=== PATIENT | female | born 1940 | race African-American/Black ===

== ENCOUNTER 2017-10-05 10:27 | Outpatient (CLI) | payer MEDICARE, MEDICAID | END 2017-10-05 10:28 | disposition home or self-care (01) | LOC: BICMAMMO 10:27 | PROVIDERS: ATTEND Specialist | DX: Z08 Encounter for follow-up examination after completed treatment for malignant neoplasm (principal); Z85.3 Personal history of malignant neoplasm of breast; I48.91 Unspecified atrial fibrillation | CPT/HCPCS: G0206; G0279 ==

== ENCOUNTER 2018-06-02 16:34 | Emergency (ER) | payer MEDICARE ==
[~2018-06-02 16:34] MED LIST: ISOVUE-370 76%-LOCM 1 ML ONE
--- NOTE | 2018-06-02 17:37 | CT ---
CT ANGIOGRAM CHEST: 06/02/2018 HISTORY: One week history of shortness of breath. COMPARISON: 12/29/2017 TECHNIQUE: Serial axial CT imaging at 2.5 mm intervals, from the thoracic inlet through the upper abdomen, with IV contrast, using CT angiogram protocol. Coronal and sagittal 3D reformatted imaging obtained. FINDINGS: Limited assessment of the upper abdomen demonstrates contrast media refluxing into the IVC and hepati c veins, suggesting poor cardiac output. No significant pleural, pericardial, or mediastinal fluid is seen. There is a dual-lead transvenous pacing device, inserted via a left subclavian approach. Mastectomy changes are noted on the right wi th postoperative clips in the right axillary region. No axillary lymphadenopathy, hilar lymphadenopa thy, or mediastinal adenopathy is noted. There is no filling defect within the pulmonary arterial vasculature to suggest the presence of acute pulmonary embolism. There is no pneumothorax seen on either side. There is a pulmonary nodule within the medial left lower lobe, stable when compared to a CT chest janine ing back to 04/01/2016. This nodule measures 4-5 mm. The left lower lobe is otherwise unremarkable. The left upper lobe is unremarkable. There are increased linear interstitial densities in the right lung apex and at the anterior aspect o f the lower right upper lobe and at the superior aspect of the right middle lobe, stable, which may b e associated with treatment for breast cancer. No acute findings are noted within the right lung. No endobronchial lesion is identified. Review of the osseous structures demonstrates multilevel dege nerative change within the imaged spine. IMPRESSION: No evidence for acute pulmonary embolism. POS: [facility]
[2018-06-02 18:39] LABS: Troponin I Less than 0.010 ng/mL (< 0.028)
[2018-06-02 21:18] LABS: INR-International Normal Ratio 1.9; Prothrombin Time 22.2 SEC (12.0-14.7)
== END 2018-06-02 21:43 | disposition home or self-care (01) ==
LOC: ERS 16:34
DX: R06.02 Shortness of breath (principal); E78.5 Hyperlipidemia, unspecified; I10 Essential (primary) hypertension; M19.90 Unspecified osteoarthritis, unspecified site; F17.210 Nicotine dependence, cigarettes, uncomplicated; F41.9 Anxiety disorder, unspecified; F32.9 Major depressive disorder, single episode, unspecified; Z79.899 Other long term (current) drug therapy; Z79.01 Long term (current) use of anticoagulants
CPT/HCPCS: 36415; 71275; 85610; 93005; 96360; 96361

== ENCOUNTER 2018-10-16 14:00 | Outpatient (CLI) | payer MEDICARE | END 2018-10-16 14:01 | disposition home or self-care (01) | LOC: BICMAMMO 14:00 | PROVIDERS: ATTEND Specialist | DX: Z08 Encounter for follow-up examination after completed treatment for malignant neoplasm (principal); Z85.3 Personal history of malignant neoplasm of breast | CPT/HCPCS: 77065; G0279 ==

== ENCOUNTER 2018-10-23 19:40 | Observation (INO) | payer MEDICARE ==
[2018-10-23 19:58] VITALS: BMI 45.7
[2018-10-24] MEDS ORDERED: Ondansetron PF 4 MG/2 ML Vial IVP PRN (00:31)
[2018-10-24] MEDS ORDERED: Ondansetron ODT 4 MG TAB PO PRN (00:31)
[2018-10-24] MEDS ORDERED: Acetaminophen 325 MG TAB PO PRN (00:31)
[2018-10-24] MEDS ORDERED: PROVENTIL INHALER 6.7 G (200 INHALATIONS) INH PRN (00:33)
[2018-10-24] MEDS ORDERED: Acetaminophen/Codeine 30-300mg Tablet PO PRN (00:33)
[2018-10-24] MEDS ORDERED: Lorazepam 1 MG TAB PO PRN (00:33)
[2018-10-24 02:44] LABS: #Eosinphils 0.1 thou/uL (0.0-0.7); #Lymphocytes 1.4 thou/uL (1.20-3.40); #Monocytes 0.6 thou/uL (0.11-0.59); #Neutrophils 2.6 thou/uL (1.40-6.50); %Basophils 0.6 % (0.0-1.0); %Eosinophils 2.1 % (0.0-10.0); %Lymphocytes 29.7 % (21.0-51.0); %Monocytes 13.2 % (0.0-10.0); %Neutrophils 54.4 % (42.0-75.0); Hemoglobin 10.8 g/dL (12.0-16.0); Mean Corpuscular HGB CONC 31.5 g/dL (32.0-36.0); Mean Corpuscular Volume 88.7 fL (78.0-98.0); Mean Platelet Volume 8.4 fL (7.4-10.4); Platelet Count 211 thou/uL (130-400); RBC Distribution Width 14.4 % (11.5-14.5); Red Blood Cell (RBC) Count 3.85 mill/uL (4.20-5.40); White Blood Cell (WBC) Count 4.8 thou/uL (4.8-10.8)
[2018-10-24 02:51] LABS: Prothrombin Time 52.7 SEC (12.0-14.7)
[2018-10-24 03:09] LABS: Anion Gap 16 mmol/L (10-20); BUN (Urea Nitrogen) 33 mg/dL (9.8-20.1); Calc. Creatinine Clearance 57 mL/min (70-130); Calcium 9.1 mg/dL (7.8-10.44); Carbon Dioxide 23 mmol/L (23-31); Chloride 103 mmol/L (98-107); Estimated GFR-MDRD 37; Glucose 79 mg/dL (83-110); Potassium 4.6 mmol/L (3.5-5.1); Sodium 137 mmol/L (136-145)
[2018-10-24 03:11] LABS: INR-International Normal Ratio 5.9
--- NOTE | 2018-10-24 05:29 | HP ---
CODE STATUS: Full code. TIME OF EVALUATION: 9:15 p.m. CHIEF COMPLAINT: Shortness of breath. 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 The patient reported symptoms started about 2 to 3 months ago with no clear triggers , no alleviating factors, being gradually getting worse to the point that she cannot function and do her activities of daily living. Symptoms are severe, worsening with exertion, improving with rest. REVIEW OF SYSTEMS: CONSTITUTIONAL: No fever or chills. The patient did report generalized weakness. RESPIRATORY: The patient has had worsening shortness of breath as mentioned in the HPI. No cough or sputum production. CARDIOVASCULAR: No chest pain or palpitation. GASTROINTESTINAL: No nausea, vomiting, diarrhea, or abdominal pain. VIBRATION TECHNICIAN: No dizziness, headache, or feeling lightheaded. GENITOURINARY: No burning on urination. EXTREMITIES: No leg swelling. All other systems were reviewed and negative except for the findings mentioned above. PAST MEDICAL HISTORY: As mentioned in the HPI. PAST SURGICAL HISTORY: Cardiac cath, pacemaker placement, mastectomy, partial hysterectomy, total knee arthroplasty. FAMILY HISTORY: Mother has heart disease. ALLERGIES: TO HARJINDER INHIBITOR, ASPIRIN, CEPHALEXIN, PENICILLIN. SOCIAL HISTORY: Smoking status, former smoker. Alcohol use, rarely use. PHYSICAL EXAMINATION: VITAL SIGNS: On presentation, blood pressure 132/80 with heart rate 71, respiratory rate was 18, temperature 98.6. GENERAL APPEARANCE: The patient is alert, oriented, no acute distress. HEENT: Eyes; normal conjunctivae. Moist oral mucosa. Anicteric. No JVD. RESPIRATORY: Bilateral air entry. No rales. No wheezing. Symmetric expansion. CARDIOVASCULAR: Normal rate, regular rhythm. No murmurs, no gallops. No edema. ABDOMEN: Soft. Normal bowel sounds. MUSCULOSKELETAL: Baseline range of motion and strength. No tenderness. SKIN: Warm and intact. No pallor. No rash. No redness. Peripheral pulses are present. Capillary refill seems to be intact. NEUROLOGICAL: No evidence of any new focal weakness. Baseline speech. Cranial nerves seems to be intact. PSYCH: The patient is in good mood. No anxiety. Optimal judgment, DIAGNOSTIC DATA: EKG was reviewed. The patient has paced rhythm at the rate of 82, MT 188, QRS duration 240, QT corrected 614. LABORATORY DATA: Labs were reviewed. The patient has urine that was negative and troponin was negative. GFR 29, glucose 101, BUN 32, creatinine 1.91, sodium 139 , potassium 4.3, chloride 101, carbon dioxide was 27, total bilirubin 0.7, alkaline phosphatase 82. LFTs were normal. INR . CBC; white count 4.7, hemoglobin 11.1, hematocrit 35.1, MCV 84.4, platelet count 257. Chest x-ray, frontal view of the chest, stable left subclavian pacemaker. Heart size and pulmonary vasculature within normal limits. The lungs are clear. Calcified left hilar nodes. Surgical clips overlying the right axillary region. ASSESSMENT AND PLAN: The patient will be placed in the hospital with following medical problems: 1. Shortness of breath, unclear etiology. We will do echo. The patient does not have an echo in our records, the patient has a known history of ischemic cardiomyopathy. We will follow results and treat accordingly. 2. History of coronary artery disease: This is chronic, seems to be stable at this point. We will monitor. We will reconcile home medications. 3. Acute kidney injury: The patient has creatinine of 1.9, on previous admission was 1.5 as per record. We will monitor. If not improving, might need Nephro assistance with this patient. There is no significant evidence of fluid overload. We will do echo first before deciding between fluids and diuretics. The patient might be on the dry side since the patient was taking diuretics at home. 4. Chronic anticoagulation: The patient has supratherapeutic INR. No evidence of bleeding, we will monitor, pharmacy to dose warfarin. 5. History of hypertension: Reconcile home medications. We will adjust treatment as needed. It is a chronic problem. 6. History of gastroesophageal reflux disease: Continue Prilosec. 7. History of anxiety: Reconcile home medications. 8. Deep venous thrombosis prophylaxis. Job ID: [id number] [facility]
[2018-10-24] MEDS: Losartan 25 MG TAB PO SCH (08:24)
[2018-10-24] MEDS: Flecainide 50 MG TAB PO SCH ×2 (08:24→20:50)
[2018-10-24] MEDS: Anastrozole 1 MG TAB PO SCH (08:25)
[2018-10-24] MEDS: FLUoxetine HCl 20 MG CAP PO SCH (08:25)
[2018-10-24] MEDS ORDERED: Torsemide 20 MG TAB PO SCH (09:00)
[2018-10-24] MEDS ORDERED: Enoxaparin Sodium 40 MG/0.4 ML SYRINGE SC SCH (09:00)
--- NOTE | 2018-10-24 14:31 | CT ---
CT ABDOMEN AND PELVIS WITHOUT CONTRAST: Comparison: 04-19-18 History: Right sided abdominal pain and abdominal bloating. Technique: Multiple contiguous axial images were obtained in a CT of the abdomen and pelvis without c ontrast. Coronal reformats were performed. FINDINGS: The liver, gallbladder, kidneys, adrenal glands, spleen and pancreas are unremarkable although evalua tion is limited without IV contrast. No free air, free fluid or stranding changes are seen in the abd omen or pelvis. Evaluation of the pelvis is limited secondary to patient large body habitus touching the CT gantry producing streak artifact. The patient is status post hysterectomy. The large and small bowel are unremarkable. The appendix is unremarkable. No abdominal or pelvic lymphadenopathy are seen. Degenerative changes are seen in the spine. The visualized inferior thorax partially shows a pacemake r in the heart but is otherwise unremarkable. The abdominal wall soft tissues are unremarkable. IMPRESSION: No evidence of acute intraabdominal/pelvic abnormality. POS: C
[2018-10-24] MEDS ORDERED: Warfarin Sodium 5 MG TAB PO SCH ×2 (17:00→18:00)
--- NOTE | 2018-10-24 17:07 | PDOC.PN ---
- Subjective Encounter Start Date: 10/24/18 Encounter Start Time: 10:40 seen for followup re:shortness of breath. Denies chest pain, reports abdo discomfort. - Objective Resuscitation Status - Order Detail: 10/24/18 00:31 Resuscitation Status Routine Resuscitation Status: FULL: Full Resuscitation MAR Reviewed: Yes Vital Signs & Weight: Vital Signs (12 hours) Temp Pulse Resp BP Pulse Ox 10/24/18 15:57 97.7 F 65 16 120/55 L 96 10/24/18 11:06 97.8 F 66 16 142/63 H 94 L 10/24/18 07:35 98.1 F 65 20 136/60 95 Weight Admit Weight 274 lb 12.8 oz Weight 274 lb 12.8 oz I&O: 10/23/18 10/24/18 10/25/18 06:59 06:59 06:59 Intake Total 640 Balance 640 Result Diagrams: 10/24/18 02:21 10/24/18 02:21 EKG Reviewed by me: Yes (Tele: NSR) Phys Exam - Physical Examination Morbid obesity HEENT: moist MMs, sclera anicteric, oral pharynx no lesions, 2+ tonsils Neck: no nodes, no JVD, supple, full ROM Respiratory: clear to auscultation bilateral Cardiovascular: RRR, no rub S1, S2 Gastrointestinal: soft, non-tender, positive bowel sounds distended Neurological: moves all 4 limbs Psychiatric: normal affect, A&O x 3 Dx/Plan (1) Dyspnea Code(s): R06.00 - DYSPNEA, UNSPECIFIED Status: Acute Comment: workup in progress, 2D echo pending. (2) Abdominal discomfort Code(s): R10.9 - UNSPECIFIED ABDOMINAL PAIN Status: Acute Comment: check CT abdo/pelvis (3) Chronic kidney disease, stage 3 Code(s): N18.3 - CHRONIC KIDNEY DISEASE, STAGE 3 (MODERATE) Status: Chronic Comment: stable - Plan * . Review of Systems - Review of Systems Constitutional: weakness. negative: fever, chills, sweats, malaise Respiratory: SOB with Excertion. negative: Cough, Shortness of Breath, Pleuritic Pain, Wheezing Cardiovascular: negative: chest pain, palpitations, orthopnea, paroxysmal nocturnal dyspnea, edema, light headedness Gastrointestinal: Abdominal Pain. negative: Nausea, Vomiting, Diarrhea, Constipation, Melena, Hematochezia Genitourinary: negative: Dysuria, Frequency, Incontinence, Hematuria, Retention - Medications/Allergies Allergies/Adverse Reactions: Allergies Allergy/AdvReac Type Severity Reaction Status Date / Time HARJINDER Inhibitors Allergy swelling Verified 10/23/18 20:15 aspirin Allergy "messed Verified 10/23/18 20:15 with my acid reflux" ciprofloxacin Allergy "made me Verified 10/23/18 20:15 itch" metoprolol [From Lopressor] Allergy Verified 10/23/18 20:15 Penicillins Allergy "i break Verified 10/23/18 20:15 out" Medications: Current Medications Acetaminophen (Tylenol) 650 mg PO Q4H PRN PRN Reason: Headache/Fever/Mild Pain (1-3) Last Admin: 10/24/18 13:34 Dose: 650 mg Acetaminophen/Codeine Phosphate (Tylenol #3) 1 tab PO Q6H PRN PRN Reason: Pain Albuterol Sulfate (Proventil Hfa) 2 puff INH Q6H PRN PRN Reason: SOB &/or Wheezing Anastrozole (Arimidex) 1 mg PO DAILY [facility] Last Admin: 10/24/18 08:25 Dose: 1 mg Flecainide Acetate (Tambocor) 200 mg PO BID [facility] Last Admin: 10/24/18 08:24 Dose: 200 mg Fluoxetine HCl (Prozac) 20 mg PO QAM [facility] Last Admin: 10/24/18 08:25 Dose: 20 mg Lorazepam (Ativan) 1 mg PO DAILY PRN PRN Reason: Anxiety Losartan Potassium (Cozaar) 25 mg PO DAILY [facility] Last Admin: 10/24/18 08:24 Dose: 25 mg Miscellaneous Medication (Pharmacy To Dose) 1 each PO PRN PRN PRN Reason: Pharmacy to dose Mometasone Furoate (Asmanex Twisthaler) 1 puff INH 1830 [facility] Ondansetron HCl (Zofran Odt) 4 mg PO Q6H PRN PRN Reason: Nausea/Vomiting Last Admin: 10/24/18 13:33 Dose: 4 mg Ondansetron HCl (Zofran) 4 mg IVP Q6H PRN PRN Reason: Nausea/Vomiting Pantoprazole Sodium (Protonix) 40 mg PO DAILY [facility] Last Admin: 10/24/18 08:25 Dose: 40 mg Pravastatin Sodium (Pravachol) 40 mg PO HS [facility] Torsemide (Demadex) 20 mg PO DAILY [facility] Last Admin: 10/24/18 08:25 Dose: 20 mg Warfarin Sodium (Coumadin) 5 mg PO 1700 [facility]
[2018-10-24] MEDS ORDERED: Furosemide 40 MG/4 ML VIAL SLOW IVP SCH (17:30)
[2018-10-24] MEDS ORDERED: Mometasone Furoate 120 PUFF 220 MCG INH SCH (18:30)
[2018-10-24] MEDS ORDERED: Pravastatin Sodium 40 MG TAB PO SCH (21:00)
[2018-10-25 05:33] LABS: Prothrombin Time 42.6 SEC (12.0-14.7)
[2018-10-25 05:38] LABS: INR-International Normal Ratio 4.5
[2018-10-25 05:56] LABS: Anion Gap 15 mmol/L (10-20); BUN (Urea Nitrogen) 40 mg/dL (9.8-20.1); Calc. Creatinine Clearance 52 mL/min (70-130); Calcium 8.8 mg/dL (7.8-10.44); Carbon Dioxide 24 mmol/L (23-31); Chloride 101 mmol/L (98-107); Estimated GFR-MDRD 32; Glucose 82 mg/dL (83-110); Potassium 4.8 mmol/L (3.5-5.1); Sodium 135 mmol/L (136-145)
[2018-10-25 06:12] LABS: Eosinophils 2 % (0-10); Hemoglobin 10.5 g/dL (12.0-16.0); Lymphocytes 24 % (21-51); MDiff Complete? YES; Mean Corpuscular HGB CONC 31.2 g/dL (32.0-36.0); Mean Corpuscular Hemoglobin 27.7 pg (27.0-31.0); Mean Corpuscular Volume 88.8 fL (78.0-98.0); Mean Platelet Volume 8.2 fL (7.4-10.4); Monocytes 19 % (0-10); Neutrophil 55 % (42-75); Platelet Count 205 thou/uL (130-400); RBC Distribution Width 14.3 % (11.5-14.5); Red Blood Cell (RBC) Count 3.77 mill/uL (4.20-5.40); White Blood Cell (WBC) Count 5.2 thou/uL (4.8-10.8)
[2018-10-25] MEDS: Flecainide 50 MG TAB PO SCH (09:26)
[2018-10-25] MEDS: Anastrozole 1 MG TAB PO SCH (09:26)
[2018-10-25] MEDS: Losartan 25 MG TAB PO SCH (09:27)
[2018-10-25] MEDS: FLUoxetine HCl 20 MG CAP PO SCH (09:27)
--- NOTE | 2018-10-25 15:38 | RAD ---
CHEST TWO VIEWS: HISTORY: Shortness of breath. CORRELATION: Nuclear medicine VQ scan. FINDINGS: Heart size is mildly prominent but stable from prior exam of 06/02/2018. Lungs appears clear with no infiltrate or vascular congestion apparent. A dual-lead pacemaker was again noted. IMPRESSION: No acute lung process. POS: [facility]OR[facility]
--- NOTE | 2018-10-25 16:04 | NM ---
VQ SCAN: INDICATION: Shortness of breath. Assess for pulmonary embolism. FINDINGS: Ventilation scan performed administering 15 mCi of inhaled Xenon gas. Anterior and posterior images obtained. No evidence of ventilation defect. Mild symmetric air trapping. Perfusion scan performed with administration of 5 mCi of Technetium labelled MAA. Lungs were imaged in 8 projections. FINDINGS: There is a perfusion defect involving the right lung apex. No other perfusion defect identified. Th is would represent a single mismatched segmental defect. IMPRESSION: A single segmental perfusion defect which is mismatched in the right apex. Indeterminate probability for pulmonary embolus. POS: [facility]
[2018-10-25 16:17] VITALS: BP 101/59; TEMP 97.9
--- NOTE | 2018-10-26 02:30 | DIS ---
DATE OF ADMISSION: 10/23/2018 DATE OF DISCHARGE: 10/25/2018 PRIMARY CARE PROVIDER: Bong Timmons MD DISCHARGE DIAGNOSES: 1. Shortness of breath. 2. Shortness of breath, most likely secondary to chronic diastolic congestive heart failure, [place] Heart Association class II and ACC/AHA class II. 3. Acute kidney injury. 4. Abdominal discomfort, NYD. CONDITION OF PATIENT ON THE DAY OF DISCHARGE: Stable. I assessed Ms. Vigil on the day of discharge. She reports mild pain over the right lower chest wall. She denies any cough, fevers or chills. Abdominal discomfort is better. S1 and S2 are heard, regular. Lungs are clear to auscultation bilaterally. DISCHARGE MEDICATIONS: 1. Tylenol No. 3 p.r.n. 2. ProAir HFA p.r.n. 3. Anastrozole 1 mg daily. 4. Flecainide 200 mg 2 times a day. 5. Fluoxetine 20 mg daily. 6. Fluticasone one inhalation daily. 7. Ativan 1 mg daily. 8. Losartan 25 mg daily. 9. Omeprazole 40 mg daily. 10. Pravachol 40 mg at bedtime. 11. Torsemide 20 mg daily. HOSPITAL COURSE: Ms. Vigil is a pleasant 78-year-old lady, who was admitted to [facility] on October 23, 2018, for shortness of breath and abdominal discomfort. CT scan of the abdomen and pelvis done without IV contrast did not show any acute intraabdominal or intrapelvic abnormality. She also had 2D echocardiogram, which showed left ventricular ejection fraction of 55% to 60%, restrictive filling pattern, normal right ventricular size and function, moderately dilated left atrium, moderately enlarged right atrium, [id number] mitral regurgitation, and [id number] aortic regurgitation. She had severe tricuspid regurgitation and mild pulmonic regurgitation. She had a V/Q scan, which showed a segmental perfusion defect in the right apex. At the time of the test, she had supratherapeutic INR. Also, the location of the defect was not consistent with the location of her pain. No change was made to her anticoagulation. Her INR was 5.9 on October 24 and 4.5 on October 25. She was advised to hold warfarin and see her primary care provider in 3 days time and have her INR rechecked and decision to be made regarding further anticoagulation at that time. She was also advised to follow up with her jewel sawyer as an outpatient. Please note that she also had her pacemaker interrogated during this hospitalization. There were no device terminated issues. There were no issues with device performance. On the day of discharge, she has INR 4.5, white count 5200, hemoglobin 10.5, platelet count 205,000. Sodium 135, blood urea nitrogen 40, and creatinine 1.83. Many thanks for allowing me to participate in your patient's care. Please feel free to contact me with any questions or concerns. Please note that I have advised her to have her creatinine checked as well when she sees her primary care provider in 3 days time. DISCHARGE DESTINATION: Home. Job ID: [id number]
== END 2018-10-25 18:32 | disposition home or self-care (01) ==
LOC: 2SW 19:40
PROVIDERS: ADMIT Internal Medicine; ATTEND Internal Medicine
DX: R06.02 Shortness of breath (principal); I11.0 Hypertensive heart disease with heart failure; I50.32 Chronic diastolic (congestive) heart failure; N17.9 Acute kidney failure, unspecified; R10.9 Unspecified abdominal pain; D64.9 Anemia, unspecified; F41.9 Anxiety disorder, unspecified; M19.90 Unspecified osteoarthritis, unspecified site; I48.91 Unspecified atrial fibrillation; I42.9 Cardiomyopathy, unspecified; G47.00 Insomnia, unspecified; E78.5 Hyperlipidemia, unspecified; K21.9 Gastro-esophageal reflux disease without esophagitis; Z79.51 Long term (current) use of inhaled steroids; Z79.811 Long term (current) use of aromatase inhibitors; Z79.899 Other long term (current) drug therapy; Z87.891 Personal history of nicotine dependence; Z88.0 Allergy status to penicillin; Z88.1 Allergy status to other antibiotic agents; Z88.8 Allergy status to other drugs, medicaments and biological substances; Z95.0 Presence of cardiac pacemaker
CPT/HCPCS: 71046; 74176; 78582; 80048 ×2; 83880; 85025 ×2; 85610 ×2; 93306; 96374; A9540; A9558; G0378; G0379; 36415; J1940; Q0162

== ENCOUNTER 2018-11-13 22:14 | Inpatient (IN) | payer MEDICARE ==
--- NOTE | 2018-11-13 22:47 | RAD ---
CHEST ONE VIEW 11/13/18 HISTORY: Dyspnea. COMPARISON: Radiograph 11/01/18. FINDINGS: Heart size is mildly enlarged. Mild pulmonary venous congestion. Mild tortuosity of the aorta. No acute osseous abnormality. IMPRESSION: Cardiomegaly and mild pulmonary venous congestion, not progressed from the 11/01/18 study. POS: [facility]ORGE [facility]
[2018-11-13 22:51] LABS: #Eosinphils 0.1 thou/uL (0.0-0.7); #Lymphocytes 0.6 thou/uL (1.20-3.40); #Monocytes 0.6 thou/uL (0.11-0.59); #Neutrophils 3.6 thou/uL (1.40-6.50); %Basophils 0.8 % (0.0-1.0); %Eosinophils 1.7 % (0.0-10.0); %Lymphocytes 12.3 % (21.0-51.0); %Monocytes 11.7 % (0.0-10.0); %Neutrophils 73.5 % (42.0-75.0); Hemoglobin 10.4 g/dL (12.0-16.0); Mean Corpuscular HGB CONC 30.6 g/dL (32.0-36.0); Mean Corpuscular Volume 85.1 fL (78.0-98.0); Mean Platelet Volume 8.5 fL (7.4-10.4); Platelet Count 223 thou/uL (130-400); RBC Distribution Width 15.1 % (11.5-14.5); Red Blood Cell (RBC) Count 3.98 mill/uL (4.20-5.40); White Blood Cell (WBC) Count 4.9 thou/uL (4.8-10.8)
[2018-11-13 22:56] LABS: ALT (SGPT) 38 U/L (8-55); AST (SGOT) 52 U/L (5-34); Albumin 3.3 g/dL (3.4-4.8); Alkaline Phosphatase 103 U/L (40-150); Anion Gap 13 mmol/L (10-20); BUN (Urea Nitrogen) 48 mg/dL (9.8-20.1); Bilirubin, Total 0.8 mg/dL (0.2-1.2); Calc. Creatinine Clearance 0 mL/min (70-130); Calcium 8.9 mg/dL (7.8-10.44); Carbon Dioxide 30 mmol/L (23-31); Chloride 96 mmol/L (98-107); Estimated GFR-MDRD 26; Glucose 121 mg/dL (83-110); Potassium 4.1 mmol/L (3.5-5.1); Protein, Total 6.3 g/dL (6.0-8.3); Sodium 135 mmol/L (136-145)
[2018-11-14 00:47] LABS: Bilirubin Negative (Negative); Blood, Urine Negative (Negative); Clarity CLOUDY (Clear); Glucose, Urine (Dipstick) Negative (Negative); Leukocyte Small (Negative); Nitrite Negative (Negative); Protein, Urine (Dipstick) 100 mg/dL (Neg-Trace); Specific Gravity, Urine 1.012 (1.002-1.036); Urobilinogen 0.2 mg/dL (0.2-1.0); pH, Urine 5.5 (5.0-9.0)
[2018-11-14 00:50] LABS: Bacteria/HPF None Seen HPF (None Seen)
[2018-11-14 00:56] LABS: Pathc Cast-AUWi Flag 2.72 (0-2.49)
[2018-11-14 01:17] LABS: Hyaline Casts/LPF NONE SEEN LPF (0-3 Hyaline); Other Casts/LPF None Seen LPF (0-3 Hyaline)
[2018-11-14 01:18] LABS: Crystals/HPF None Seen HPF (Negative)
[2018-11-14 02:10] LABS: Troponin I 0.013 ng/mL (< 0.028)
[2018-11-14 05:21] LABS: Troponin I 0.014 ng/mL (< 0.028)
[2018-11-14] MEDS ORDERED: Lisinopril 10 MG TAB ONE (08:17)
[2018-11-14] MEDS ORDERED: Famotidine/PF 20 mg/2ml Vial ONE (09:43)
[2018-11-14] MEDS: Sodium Chloride 0.9% 1,000 ML IV SCH (09:47)
[2018-11-14] MEDS: Famotidine/PF 20 mg/2ml Vial SLOW IVP SCH (09:47)
[2018-11-14] MEDS ORDERED: Warfarin Sodium 5 MG TAB PO SCH (10:00)
[2018-11-14 10:15] LABS: Prothrombin Time 39.8 SEC (12.0-14.7)
[2018-11-14 10:24] LABS: INR-International Normal Ratio 4.1
--- NOTE | 2018-11-14 10:45 | ULT ---
BILATERAL LOWER EXTREMITY VENOUS DOPPLER ULTRASOUND: Date: 11/14/18 HISTORY: Bilateral lower extremity edema. TECHNIQUE: Kowalski scale ultrasound with color flow and spectral Doppler imaging of the deep venous systems of the lower extremities was performed bilaterally. FINDINGS: There is good flow, compression, and augmentation noted in the common femoral, femoral, deep femoral, popliteal, posterior tibial, and greater saphenous veins on either side. IMPRESSION: No evidence of deep venous thrombosis in either lower extremity. POS: [facility]
--- NOTE | 2018-11-14 11:19 | PDOC.EVN ---
Event Note - Event Note Event Note: I have interviewed, examined and discussed pt with Bhakti Hunter regarding gen weakness, dyspnea in context of valvular heart disease and KALI. Consult Cardiology service to establish care and plan for outpt follow up. Gentle hydration and avoidance of nephrotoxic meds. PT/OT evaluation and consideration for SNF/cardiac rehab. Please see dictated H&P for full details.
--- NOTE | 2018-11-14 12:18 | HP ---
CHIEF COMPLAINT: Weakness and shortness of breath. HISTORY OF PRESENT ILLNESS: Ms. Vigil is a very pleasant 78-year-old woman with a background history of atrial fibrillation, hypertension, permanent pacemaker, and valvular disease, as well as chronic kidney disease, who presents after experiencing an episode of weakness, lightheadedness and shortness of breath yesterday evening. The patient was recently discharged on November 04, 2018, after being treated for exacerbation of her CHF. She had an echo done that showed an EF of 55% to 60%. Also noted was significant valvular disease including moderate to severe mitral regurgitation and severe tricuspid regurgitation. The patient states since being discharged, she has been home and sedentary on the couch, only getting up to go to the bathroom. Yesterday evening, her grandson, who she lives with, had started laundry and left. She got up to put the clothes in the dryer and on her way back to the couch, felt weak in the legs with lightheadedness and began to experience shortness of breath. She denies any syncope and denies any associated chest pain. She was able to make it back to the couch and sought medical attention. She has had no further episodes of lightheadedness or shortness of breath since arriving to the ER. And again denies having any episode of chest pain, however, now describes a sharp, stabbing pain in the right lateral chest with deep inspiration. She denies having any cough or hemoptysis. Has not had any fevers, chills, or sweats. She has been tolerating oral intake at home, but has been limiting her fluid intake to 1500 mL a day due to her heart failure. The patient is on warfarin for atrial fibrillation and states that she continues to take 7.5 mg every day except Tuesdays and when she takes 5 mg. She denies being under the care of any loading machine tool setter, since her heart failure is being managed by Dr. Timmons. She also reports being told she should follow with a cement mason, but has not established care with one yet. PAST MEDICAL HISTORY: 1. CHF. 2. Atrial fibrillation, on warfarin. 3. Cardiomyopathy. 4. Coronary artery disease. 5. Percutaneous transluminal angioplasty with pacemaker placement in the past. 6. Hyperlipidemia. 7. Hypertension. 8. Chronic kidney disease, stage III. 9. Osteoarthritis. 10. GERD. 11. Chronic anemia. 12. Mild intermittent asthma. 13. Depression. 14. History of breast cancer. PAST SURGICAL HISTORY: 1. Status post right mastectomy. 2. Left and right knee replacement. 3. Partial hysterectomy. SOCIAL HISTORY: The patient denies any tobacco use, alcohol use or illicit drug use. She lives at home with her grandson. She has no car or any way to get around. ALLERGIES: 1. HARJINDER INHIBITORS. 2. ASPIRIN CAUSES UPSET STOMACH. 3. CIPRO. 4. METOPROLOL. 5. PENICILLIN. CURRENT MEDICATIONS: 1. Losartan 25 mg p.o. daily. 2. Omeprazole 40 mg p.o. daily. 3. Caltrate 600 plus vitamin D 1 tablet daily. 4. Fluoxetine 20 mg p.o. daily. 5. Pravastatin 40 mg p.o. daily at bedtime. 6. Arnuity Ellipta inhaled p.r.n. 7. Anastrozole 1 mg p.o. daily. 8. Torsemide 40 mg p.o. daily. 9. Flecainide 100 mg p.o. b.i.d. 10. Warfarin 7.5 mg daily except for Tuesdays and when she takes only 5 mg daily. PHYSICAL EXAMINATION: GENERAL: The patient appears well-developed and obese, in no acute distress. Sat upright on stretcher. VITAL SIGNS: Temperature 98.7, blood pressure 101/52, pulse 80, respirations 18 , O2 saturation 98% on room air. HEENT: Normocephalic and atraumatic. Pupils are equal, round, and reactive to light. Sclerae are without icterus. Oropharynx is clear. NECK: Supple without lymphadenopathy. Full range of motion. CARDIAC: Regular rate and rhythm. LUNGS: Clear to auscultation bilaterally without any wheezes, rales, or rhonchi. ABDOMEN: Soft, obese, nontender, nondistended. No renal angle tenderness. No guarding or rigidity. EXTREMITIES: Notable for +1 pitting edema bilaterally. Mild calf tenderness with palpation. No anasarca. NEUROLOGIC: Alert and oriented x3. SKIN: Without rash or jaundice. LABORATORY DATA: White blood count 4.9, hemoglobin 10.4, hematocrit 33.9, platelets 223. Sodium 135, potassium 4.1, BUN 48, creatinine 2.23, GFR 26. Total bilirubin 0.8, AST 52, alkaline phosphatase 103. Troponin 1 negative x3. BNP 644.4. Urinalysis notable for small leukocyte esterase, red blood cells 11-20, white blood cells 7 to 10, 100 protein, no bacteria, nitrites negative. IMAGING DATA: Chest x-ray, 11/13/2018, cardiomegaly and mild pulmonary venous congestion, not progressed from previous study done November 01, 2018. IMPRESSION AND PLAN: Ms. Vigil is a very pleasant 78-year-old woman, who is being admitted for management of the following. 1. Weakness/lightheadedness. Given recent sedentary status, may have been due to a combination of dehydration and "over-exertion" vs. due to underlying severe valvular heart disease. She does not seem to be fluid overloaded at this time. Her renal function has deteriorated from baseline and her blood pressure is on the lower side. We will give very gentle hydration and have placed a consultation with Cardiology. 2. Acute on chronic renal failure. As stated above, we will provide gentle hydration. The patient has been discussed with Dr. Mcdonough, nephrology, who is happy to accept the consultation. We will continue to monitor her kidney function. 3. Shortness of breath. As mentioned above, possibly associated with underlying valvular disease or general deconditioning. The patient did mention right lateral pleuritic type chest pain. Though she is on anticoagulation, she has been quite sedentary. We are awaiting coags to ensure she is within therapeutic range. Given slight lower leg swelling with mild calf tenderness, we will obtain bilateral venous Doppler. 4. Hypertension. We will hold medications at this time given her low blood pressure. Continue to monitor blood pressure. 5. Atrial fibrillation. We will resume flecainide. Coags requested. We will resume warfarin unless super therapeutic. 6. Gastrointestinal prophylaxis. 7. Venous thromboembolism prophylaxis. The patient already on anticoagulation. 8. Disposition: The patient will be admitted to observation for potential discharge to [facility] facility for heart failure program, given degree of deconditioning since discharge from home and inability to make it to outpatient heart failure rehab. 9. Code status full as per patient's request. The patient's case was discussed with Dr. Kirkland, who agrees upon the care as described above. He will see the patient and make further recommendations. Job ID: [id number] [facility]
--- NOTE | 2018-11-14 15:42 | CON ---
DATE OF CONSULTATION: 11/14/2018 CONSULTING PHYSICIAN: Elsa Miller PA-C REASON FOR CONSULT: Acute kidney injury. REASON FOR ADMISSION: Weakness. HISTORY OF PRESENT ILLNESS: A 78-year-old female with CHF, atrial fibrillation, cardiomyopathy, coronary artery disease came to the hospital with weakness and leg swelling and Nephrology was consulted for acute kidney injury. The patient's creatinine was found to be 2.2, baseline runs around 1.6 to 1.8. The patient denies any nausea, vomiting. No chest pain or palpitation. PAST MEDICAL HISTORY: Positive for CHF, cardiomyopathy, coronary artery disease, hyperlipidemia, hypertension, CKD. PAST MEDICAL HISTORY: Mastectomy, knee replacement, hysterectomy. HOME MEDICATIONS: Include: 1. Losartan. 2. Omeprazole. 3. . 4. Fluoxetine. 5. Pravastatin. 6. Anastrozole. 7. Torsemide. 8. Flecainide. 9. Warfarin. ALLERGIES: 1. HARJINDER INHIBITORS. 2. ASPIRIN. 3. CIPRO. 4. METOPROLOL. 5. PENICILLIN. SOCIAL HISTORY: No smoking, alcohol, or drug abuse. FAMILY HISTORY: No history of any kidney disease. REVIEW OF SYSTEMS: CONSTITUTIONAL: Negative for weight loss or gain, ability to conduct usual activities. SKIN: Negative for rash, itching. EYES: Negative for double vision, pain. ENT/MOUTH: Negative for nose bleeding, neck stiffness, pain, tenderness. CARDIOVASCULAR: Negative for palpitations, dyspnea on exertion, orthopnea. RESPIRATORY: Negative for shortness of breath, wheezing, cough, hemoptysis, fever or night sweats. GASTROINTESTINAL: Negative for poor appetite, abdominal pain, heartburn, nausea, vomiting, constipation, or diarrhea. GENITOURINARY: Negative for urgency, frequency, dysuria, nocturia. MUSCULOSKELETAL: Negative for pain, swelling. NEUROLOGIC/PSYCHIATRIC: Negative for anxiety, depression. ALLERGY/IMMUNOLOGIC: Negative for skin rash, bleeding tendency. PHYSICAL EXAMINATION: GENERAL: Well-built female, in apparent distress. VITAL SIGNS: Temperature 98.7, pulse 68, respiratory rate 20, blood pressure 99/47. HEENT: Atraumatic and normocephalic. Oral mucosa is moist. NECK: Supple. CVS: S1 and S2 heard. Regular rate and rhythm. RESPIRATORY: Clear. GASTROINTESTINAL: Abdomen is soft. MUSCULOSKELETAL: 1+ edema. DERMATOLOGIC: No skin rash. NEUROLOGIC: Alert and awake. PSYCHIATRIC: Mood and affect normal. LABORATORY DATA: Hemoglobin is 10.4, potassium is 4.1, BUN is 48, creatinine is 2.2. ASSESSMENT AND PLAN: 1. Acute kidney injury. Agree with gentle hydration. Be cautious with cardiorenal syndrome. 2. Edema. We will monitor. 3. Hypertension. 4. Avoid nephrotoxins. Renally dose all the medications. 5. Gentle hydration, if tolerated. We will follow. Job ID: [id number]
--- NOTE | 2018-11-14 15:53 | CON ---
DATE OF CONSULTATION: 11/14/2018 REASON FOR CONSULTATION: Heart failure. HISTORY OF PRESENT ILLNESS: Ms. Vigil is a pleasant 78-year-old female, who comes to the hospital for increased shortness of breath. She was recently admitted for the same reason. She was diuresed and discharged home. She follows up with Dr. Martinez at [facility], but this is mostly for her atrial fibrillation. She is on Coumadin for chronic atrial fibrillation. She was discharged home and had to come right back secondary to shortness of breath. She was diuresed and eventually was a little bit too dry and is currently being given some fluids back. Her breathing is much better now and she is on room air. She denies any chest pain, tightness, pressure, or shortness of breath. PAST MEDICAL HISTORY: 1. History of diastolic heart failure. 2. Chronic atrial fibrillation, on chronic anticoagulation with Coumadin. 3. Coronary artery disease. 4. Pacemaker placement in the past. 5. Hyperlipidemia. 6. Hypertension. 7. Chronic kidney disease, stage 3. 8. Osteoarthritis. 9. GERD. 10. Chronic anemia. 11. Mild intermittent asthma. 12. Depression. 13. History of breast cancer. SURGICAL HISTORY: 1. Status post right mastectomy. 2. Left and right knee replacements. 3. Partial hysterectomy. SOCIAL HISTORY: No alcohol, tobacco, or drugs. ALLERGIES: 1. HARJINDER INHIBITORS. 2. ASPIRIN CAUSES UPSET STOMACH. 3. CIPRO. 4. METOPROLOL. 5. PENICILLIN. OUTPATIENT MEDICATIONS: Include, 1. Losartan 25 mg a day. 2. Omeprazole 40 mg a day. 3. Caltrate. 4. Fluoxetine. 5. Pravastatin 40 mg at bedtime. 6. Anoro Ellipta. 7. Anastrozole. 8. Torsemide 40 mg a day. 9. Flecainide 100 mg b.i.d. 10. Warfarin. REVIEW OF SYSTEMS: A 12-point review of systems was done and was all negative unless stated in the history of present illness. PHYSICAL EXAMINATION: VITAL SIGNS: Temperature 97.6, pulse 68, respiratory rate 18, saturating 97% on room air, and blood pressure GENERAL: Awake, alert, and oriented x3. No distress. HEENT: Normocephalic and atraumatic. NECK: Supple. LUNGS: Clear. CARDIOVASCULAR: S1 and S2. No S3 or S4. There is a grade 3/6 systolic murmur at the right upper sternal border. There is a second holosystolic 3/6 murmur at the apex. ABDOMEN: Soft. Positive bowel sounds. EXTREMITIES: A 1+ edema. SKIN: Warm and dry. LABORATORY DATA: Laboratory work was reviewed. CBC was reviewed. She is anemic at 10.4. Coags, INR was 4.1. Chemistries were reviewed. Creatinine at 2.23 with what appears to be a baseline of about 1.6. Troponin is negative x3. BNP is 644. Echocardiogram was reviewed, done on last visit, on the 16 of October. EF was 55% to 60%. There is a restrictive filling pattern. There is a grade 3/3 diastolic heart failure. Pacemaker leads seen. There is a [id number] AI, and there is severe TR and a severely enlarged right atrium. CT angiogram of the chest done back in May of last year showed no evidence of pulmonary embolisms. ASSESSMENT: 1. Acute on chronic diastolic heart failure. 2. Grade 3/3 diastolic heart failure, which is a restrictive physiology. 3. Severe tricuspid regurgitation. 4. Acute kidney injury on chronic kidney disease. 5. Atrial fibrillation. 6. Presence of a pacemaker. 7. Chronic anticoagulation with Coumadin. 8. Supratherapeutic INR. PLAN: 1. Agree with gentle hydration and this may be a cause of her acute kidney injury. If she starts to become more fluid overloaded, she may need a little more diuresis, so do this judiciously. 2. Warfarin adjustments per pharmacy for a therapeutic INR. 3. She follows up with Dr. Martinez mostly for her atrial fibrillation and her pacemaker. 4. We will follow. Job ID: [id number]
[2018-11-14] MEDS: Flecainide 50 MG TAB PO SCH (20:49)
[2018-11-14] MEDS: Ondansetron PF 4 MG/2 ML Vial SLOW IVP PRN (20:49)
[2018-11-15] MEDS: Sodium Chloride 0.9% 1,000 ML IV SCH (04:05)
[2018-11-15 07:07] LABS: Anion Gap 18 mmol/L (10-20); BUN (Urea Nitrogen) 52 mg/dL (9.8-20.1); Calc. Creatinine Clearance 43 mL/min (70-130); Calcium 8.7 mg/dL (7.8-10.44); Carbon Dioxide 21 mmol/L (23-31); Chloride 99 mmol/L (98-107); Estimated GFR-MDRD 25; Glucose 79 mg/dL (83-110); Potassium 4.7 mmol/L (3.5-5.1); Sodium 133 mmol/L (136-145)
[2018-11-15] MEDS: Flecainide 50 MG TAB PO SCH ×2 (07:48→19:59)
[2018-11-15] MEDS: Famotidine/PF 20 mg/2ml Vial SLOW IVP SCH (07:49)
[2018-11-15] MEDS ORDERED: Torsemide 20 MG TAB PO SCH (09:00)
[2018-11-15 09:19] LABS: Hemoglobin 11.4 g/dL (12.0-16.0); Mean Corpuscular Hemoglobin 26.4 pg (27.0-31.0); Mean Corpuscular Volume 82.4 fL (78.0-98.0); Platelet Count 203 thou/uL (130-400); RBC Distribution Width 15.1 % (11.5-14.5); Red Blood Cell (RBC) Count 4.31 mill/uL (4.20-5.40)
[2018-11-15 09:20] LABS: Eosinophils 1 % (0-10); Hypochromia SLIGHT = 6-15 cells (100X) (0-5/hpf); Lymphocytes 32 % (21-51); MDiff Complete? YES; Monocytes 11 % (0-10); Neutrophil 56 % (42-75); Ovalocytes SLIGHT = 2-5 cells (100X) (0-1/hpf); Platelet Morphology Comment Appears Adequate; Polychromasia SLIGHT = 2-3 cells (100X) (0-2/hpf)
[2018-11-15] MEDS ORDERED: Polyethylene Glycol 3350 17 GM Packet PO SCH (11:30)
[2018-11-15 12:04] LABS: INR-International Normal Ratio 3.5; Prothrombin Time 35.2 SEC (12.0-14.7)
[2018-11-15] MEDS: Promethazine HCl 6.25 MG/5 ML Syrup PO PRN (14:41)
--- NOTE | 2018-11-15 16:27 | PDOC.CTH ---
Cardiology Progress Note - Subjective Breathing is fine, her issue today is nausea and vomiting. - Objective Vital Signs Temp Pulse Resp BP Pulse Ox 11/15/18 16:21 97.5 F L 63 16 106/70 97 11/15/18 11:31 97.4 F L 64 18 87/53 L 97 11/15/18 07:18 97.6 F 64 16 123/74 96 Weight 290 lb 9 oz 11/14/18 11/15/18 11/16/18 06:59 06:59 06:59 Intake Total 960 Balance 960 - Physical Examination General/Neuro: alert & oriented x3, NAD Neck: no JVD present Lungs: CTA, unlabored respirations Heart: RRR Abdomen: NT/ND Extremities: other: (2+ edema.) - Labs Result Diagrams: 11/15/18 06:20 11/15/18 06:20 Troponin/CKMB Troponin I 0.014 ng/mL (< 0.028) 11/14/18 04:46 - Assessment/Plan 1. Acute on chronic diastolic heart failure. 2. Restrictive pattern 3. Severe TR, Mod to severe MR 4. KALI on CKD PLAN: - Will give on dose IV lasix. - Continue to monitor renal function. - Significant edema still.
[2018-11-15] MEDS ORDERED: Furosemide 40 MG/4 ML VIAL SLOW IVP SCH (16:30)
--- NOTE | 2018-11-15 17:54 | PDOC.PN ---
- Subjective Encounter Start Date: 11/15/18 Encounter Start Time: 10:53 -: non-verbal Subjective: Patient states she has been dry heaving this morning since eating. -: States this happens on occasion after meals. No abdominal pain. -: Has not moved her bowels but reports flatus. No fever, chills or sweats. Denies any vomiting or actual regurgitation of food. No chest pain. Continues with lower leg edema. - Objective Vital Signs & Weight: Vital Signs (12 hours) Temp Pulse Resp BP Pulse Ox 11/15/18 16:21 97.5 F L 63 16 106/70 97 11/15/18 11:31 97.4 F L 64 18 87/53 L 97 11/15/18 07:18 97.6 F 64 16 123/74 96 Weight Weight 290 lb 9 oz I&O: 11/14/18 11/15/18 11/16/18 06:59 06:59 06:59 Intake Total 960 Balance 960 Result Diagrams: 11/15/18 06:20 11/15/18 06:20 Phys Exam - Physical Examination Appears generally unwell due to nausea HEENT: PERRLA, moist MMs, oral pharynx no lesions Neck: supple, full ROM Respiratory: clear to auscultation bilateral Cardiovascular: RRR Gastrointestinal: soft, non-tender, no distention, positive bowel sounds no guarding or rigidity, morbidly obese Musculoskeletal: edema present Neurological: normal sensation, moves all 4 limbs Psychiatric: normal affect, A&O x 3 Skin: no rash Dx/Plan (1) Nausea Code(s): R11.0 - NAUSEA Status: Acute Plan: Phenergan 6.25 mg prescribed. If worsens, abdo xray. At present no abdo pain/distention and no vomiting. Passing flatus. Patient is constipated. Will give Miralax and senna. (2) Acute on chronic heart failure Code(s): I50.9 - HEART FAILURE, UNSPECIFIED Status: Chronic (3) Edema Code(s): R60.9 - EDEMA, UNSPECIFIED Status: Acute Plan: Resume Torsemide vs. Lasix. Dr. Rushing following, as per his recommendations. (4) CAD (coronary artery disease) Code(s): I25.10 - ATHSCL HEART DISEASE OF [place] CORONARY ARTERY W/O ANG PCTRS Status: Chronic (5) Chronic kidney disease, stage 3 Code(s): N18.3 - CHRONIC KIDNEY DISEASE, STAGE 3 (MODERATE) Status: Chronic Comment: slightly worsened from yesterday. IVF discontinued due to volume overload/edema. Nephrology following. - Plan cont current plan of care * .
[2018-11-15] MEDS: Senokot S 8.6-50 MG TAB PO SCH (19:59)
[2018-11-16] MEDS: FLUoxetine HCl 20 MG CAP PO SCH (07:54)
[2018-11-16] MEDS: Famotidine/PF 20 mg/2ml Vial SLOW IVP SCH (07:54)
[2018-11-16] MEDS: Senokot S 8.6-50 MG TAB PO SCH ×2 (07:54→20:55)
[2018-11-16] MEDS: Atorvastatin Calcium 10 MG TAB PO SCH (07:54)
[2018-11-16] MEDS: Flecainide 50 MG TAB PO SCH ×2 (07:54→20:54)
[2018-11-16 08:08] LABS: #Eosinphils 0.1 thou/uL (0.0-0.7); #Monocytes 0.7 thou/uL (0.11-0.59); %Basophils 0.9 % (0.0-1.0); %Eosinophils 2.3 % (0.0-10.0); %Lymphocytes 21.2 % (21.0-51.0); %Monocytes 13.5 % (0.0-10.0); Hemoglobin 9.9 g/dL (12.0-16.0); Mean Corpuscular HGB CONC 31.8 g/dL (32.0-36.0); Mean Corpuscular Hemoglobin 26.4 pg (27.0-31.0); Mean Corpuscular Volume 83.1 fL (78.0-98.0); Platelet Count 200 thou/uL (130-400); RBC Distribution Width 15.2 % (11.5-14.5); Red Blood Cell (RBC) Count 3.74 mill/uL (4.20-5.40); White Blood Cell (WBC) Count 4.8 thou/uL (4.8-10.8)
[2018-11-16 08:19] LABS: INR-International Normal Ratio 3.3; Prothrombin Time 33.6 SEC (12.0-14.7)
[2018-11-16 08:21] LABS: Anion Gap 16 mmol/L (10-20); BUN (Urea Nitrogen) 54 mg/dL (9.8-20.1); Calc. Creatinine Clearance 42 mL/min (70-130); Calcium 8.7 mg/dL (7.8-10.44); Carbon Dioxide 26 mmol/L (23-31); Chloride 96 mmol/L (98-107); Estimated GFR-MDRD 24; Glucose 62 mg/dL (83-110); Potassium 4.5 mmol/L (3.5-5.1); Sodium 133 mmol/L (136-145)
[2018-11-16 13:21] LABS: Creatinine, Urine 101.27 mg/dL (47-110)
[2018-11-16] MEDS: Furosemide 40 MG/4 ML VIAL SLOW IVP SCH (13:55)
--- NOTE | 2018-11-16 14:37 | PRG ---
DATE OF SERVICE: 11/16/2018 SUBJECTIVE: Patient was seen and examined at bedside and overnight events noted. Patient denies any shortness of breath or chest pain or palpitation. No history of nausea or vomiting or diarrhea or fever or chills or cramps. OBJECTIVE: GENERAL: This is a well-built female, in no apparent distress. VITAL SIGNS: Temperature 97.5. Pulse 62. Respiratory rate 18. Blood pressure 99/64. HEENT: Atraumatic, normocephalic. Oral mucosa is moist. NECK: Supple. CARDIOVASCULAR: S1, S2 heard. Rate and rhythm regular. RESPIRATORY: Clear to auscultation. GASTROINTESTINAL: Abdomen is soft. MUSCULOSKELETAL: No tenderness. No edema. DERMATOLOGIC: No skin rash. NEUROLOGIC: Alert and awake and oriented X3. No focal neurologic deficits. Moving all the extremities. PSYCHIATRIC: Mood and affect normal. LABORATORY DATA: Potassium is 4.5, BUN is 54, and creatinine is 2.3. ASSESSMENT AND PLAN: 1. Acute kidney injury on chronic kidney disease, most likely cardiorenal syndrome. The patient does have multiple valvular abnormalities. Plan is to increase Lasix and monitor renal function. 2. Edema. Would increase Lasix to twice a day. 3. Hypertension, stable. 4. Cardiorenal syndrome. 5. Severe tricuspid and mitral valve regurgitation. 6. Hyponatremia. Limit fluid intake. We will continue on fluid restriction and we will increase IV Lasix to twice a day and monitor renal function and electrolytes closely. We will follow. Prognosis guarded. Follow with Cardiology. Job ID: [id number]
--- NOTE | 2018-11-16 14:57 | PRG ---
DATE OF SERVICE: 11/16/2018 SUBJECTIVE: The patient reports she is feeling a little better, but not at her baseline. Feels like she is breathing slightly better. OBJECTIVE: VITAL SIGNS: Temperature 97.5, pulse 62, respirations 18, O2 saturation 96% on room air, and blood pressure 99/64. GENERAL APPEARANCE: Age-appropriate female, in no distress. Awake, alert, oriented, pleasant, cooperative. HEART: 2/6 murmur at the left lower sternal border and left upper sternal border. LUNGS: Clear to auscultation, but diminished in the bases bilaterally. No wheezes or rales. ABDOMEN: Soft, nontender, and nondistended. Positive bowel sounds. No masses. No organomegaly. EXTREMITIES: Reveal 2 to 3+ pitting edema to the level of the knee bilaterally. LABORATORY DATA: White count 4.8, hemoglobin 9.9, and platelets 200. INR is 3.3. Sodium 133, potassium 4.5, chloride 96, CO2 is 26, BUN 54, creatinine 2.35, GFR is 24, and glucose 62. IMPRESSION AND PLAN: 1. Acute on chronic renal failure. The patient's baseline GFR actually is mid to upper 30s. She is about 10 points more below her baseline, likely due to the decompensated heart failure. Dr. Mcdonough is following. Discussed the case with him, at this point, trying to be aggressive with the diuresis. Continue to monitor. 2. Decompensated heart failure. The patient has a severe tricuspid regurgitation and at least moderate mitral regurgitation. She is having some right heart failure and diastolic heart failure with a restrictive pattern that is causing her to have significant peripheral edema, which is only modestly responsive to the diuretics, which we are now pushing. 3. Severe tricuspid regurgitation. 4. [id number]-[id number] mitral regurgitation. 5. History of atrial fibrillation, on flecainide and has been on warfarin. 6. Supratherapeutic INR, trending down. Continue to monitor. 7. Anemia of chronic kidney disease, stable. Job ID: [id number]
--- NOTE | 2018-11-16 23:22 | PDOC.CTH ---
Cardiology Progress Note - Subjective Pt. seen and eval. by me. No new overnight events. - Objective Vital Signs Temp Pulse Resp BP BP BP Pulse Ox 11/16/18 20:00 97.3 F L 73 18 88/53 L 98 11/16/18 16:50 97.5 F L 68 18 93/62 97 11/16/18 15:21 76/46 L 11/16/18 12:00 97.5 F L 62 18 99/64 96 Weight 289 lb 1 oz 11/15/18 11/16/18 11/17/18 06:59 06:59 06:59 Intake Total 960 894 720 Output Total 275 Balance 960 619 720 - Physical Examination General/Neuro: alert & oriented x3 Neck: no JVD present Lungs: CTA Heart: other: (irreg.) Abdomen: soft Extremities: + edema B - Labs Result Diagrams: 11/16/18 07:02 11/16/18 07:02 Troponin/CKMB Troponin I 0.014 ng/mL (< 0.028) 11/14/18 04:46 - Assessment/Plan 1. Acute on chronic diastolic heart failure. 2. Restrictive pattern 3. Severe TR, Mod to severe MR 4. KALI on CKD. Followed by Nephrology. 5. Afib on flecainide and warfarin followed by Dr. Martinez. 6. Supratherapeutic INR, improved. 7. Cardiorenal syndrome suspected 8. Edema. No significant improvement. Continue diuretics biday. IV
[2018-11-17] MEDS: Ondansetron PF 4 MG/2 ML Vial SLOW IVP PRN (00:30)
[2018-11-17] MEDS: Milk Of Magnesia 30 ML UDCUP PO PRN ×2 (02:54→17:27)
[2018-11-17 05:14] LABS: INR-International Normal Ratio 2.5; Prothrombin Time 27.4 SEC (12.0-14.7)
[2018-11-17] MEDS: Furosemide 40 MG/4 ML VIAL SLOW IVP SCH ×2 (06:35→13:59)
[2018-11-17] MEDS: Senokot S 8.6-50 MG TAB PO SCH ×2 (08:14→20:44)
[2018-11-17] MEDS: Flecainide 50 MG TAB PO SCH ×2 (08:14→20:44)
[2018-11-17] MEDS: Famotidine 20 MG TAB PO SCH (08:14)
[2018-11-17] MEDS: Atorvastatin Calcium 10 MG TAB PO SCH (08:15)
[2018-11-17] MEDS: FLUoxetine HCl 20 MG CAP PO SCH (08:15)
--- NOTE | 2018-11-17 09:55 | RAD ---
KUB: 11/17/2018 PROVIDED CLINICAL HISTORY: Evidence for obstruction. FINDINGS: The abdominal bowel gas pattern is nonspecific. The upper abdomen is incompletely included. No radi ographically apparent urinary tract calculi. IMPRESSION: Nonspecific bowel gas pattern. POS: JORGE LUISH
[2018-11-17 12:57] LABS: Anion Gap 13 mmol/L (10-20); BUN (Urea Nitrogen) 56 mg/dL (9.8-20.1); Calc. Creatinine Clearance 47 mL/min (70-130); Calcium 8.7 mg/dL (7.8-10.44); Carbon Dioxide 27 mmol/L (23-31); Chloride 96 mmol/L (98-107); Estimated GFR-MDRD 27; Glucose 82 mg/dL (83-110); Potassium 4.3 mmol/L (3.5-5.1); Sodium 132 mmol/L (136-145)
--- NOTE | 2018-11-17 16:21 | PDOC.PN ---
- Subjective Encounter Start Date: 11/17/18 Encounter Start Time: 16:05 Subjective: f/u for acute/chronic diastolic HF, severe TR with slow to improve -: edema. Weight increased 3lbs in last 48h. on IV Lasix. - Objective MAR Reviewed: Yes Vital Signs & Weight: Vital Signs (12 hours) Temp Pulse Resp BP Pulse Ox 11/17/18 11:05 97.5 F L 61 16 89/56 L 96 11/17/18 08:00 97.8 F 61 16 95/57 L 96 11/17/18 06:30 101/59 L Weight Weight 293 lb 1.6 oz I&O: 11/16/18 11/17/18 11/18/18 06:59 06:59 06:59 Intake Total 894 840 480 Output Total 275 Balance 619 840 480 Result Diagrams: 11/16/18 07:02 11/18/18 05:38 Additional Labs: Laboratory Tests 11/14/18 11/15/18 11/15/18 09:57 06:20 11:47 INR 4.1 H* 3.5 Sodium 133 L BUN 52 H Creatinine 2.31 H Estimated GFR (MDRD) 25 11/16/18 11/16/18 11/17/18 07:02 07:02 05:01 INR 3.3 2.5 Sodium 133 L BUN 54 H Creatinine 2.35 H Estimated GFR (MDRD) 24 Radiology Reviewed by me: Yes (ABD x-ray - non-specific bowel gas pattern) Phys Exam - Physical Examination Constitutional: NAD HEENT: PERRLA, sclera anicteric, oral pharynx no lesions Neck: no nodes, no JVD, supple, full ROM bibasilar crackles Respiratory: no wheezing S1, S2 II/ DANETTE in RUSB Cardiovascular: RRR, no rub, gallop obese Gastrointestinal: soft, non-tender, no distention, positive bowel sounds pitting edema to knees Musculoskeletal: pulses present, edema present Neurological: normal sensation, moves all 4 limbs Psychiatric: A&O x 3 Skin: normal turgor, cap refill <2 seconds Dx/Plan (1) Acute on chronic diastolic (congestive) heart failure Code(s): I50.33 - ACUTE ON CHRONIC DIASTOLIC (CONGESTIVE) HEART FAILURE Status : Acute Comment: Slow clinical improvement despite IV Lasix, Zaroxolyn 2.5mg daily, accurate daily weight and I/O's, ? improving, 2D echo pending (2) Acute on chronic kidney failure Code(s): N17.9 - ACUTE KIDNEY FAILURE, UNSPECIFIED; N18.9 - CHRONIC KIDNEY DISEASE, UNSPECIFIED Status: Acute Comment: Renal function marginal with liliana cardiorenal syndrome given #1, avoid nephrotoxic meds and limit contrast exposure, ? new baseline (3) Anticoagulant long-term use Code(s): Z79.01 - GROUP HOME (CURRENT) USE OF ANTICOAGULANTS Status: Chronic Comment: Initially supratherapeutic now improved and therapeutic, continue Coumadin with serial INR (4) Severe tricuspid valve regurgitation Code(s): I07.1 - RHEUMATIC TRICUSPID INSUFFICIENCY Status: Chronic Comment: Likely significant contribution to current clinical situation - Plan plan discussed w/ family, PT/OT, social services manager, out of bed/ambulate Stable currently -: Continue Lasix 40mg IV BID -: Add Zaroxolyn 2.5mg x 1 today and daily -: OOB with PT -: AM Lab: BMP, PT/INR * Fluid restriction 1.5L/24h
[2018-11-17] MEDS ORDERED: Metolazone 5 MG TAB PO SCH (16:30)
[2018-11-17] MEDS: Warfarin Sodium 5 MG TAB PO SCH (16:49)
--- NOTE | 2018-11-17 19:37 | PDOC.CTH ---
Cardiology Progress Note - Subjective Pt. seen and eval. no new overnight events. She is c/o ing of constipation. Edema is minimally improved. - Objective Vital Signs Temp Pulse Resp BP Pulse Ox 11/17/18 16:40 98.0 F 60 16 108/70 96 11/17/18 11:05 97.5 F L 61 16 89/56 L 96 11/17/18 08:00 97.8 F 61 16 95/57 L 96 Weight 293 lb 1.6 oz 11/16/18 11/17/18 11/18/18 06:59 06:59 06:59 Intake Total 894 840 720 Output Total 275 Balance 619 840 720 - Physical Examination General/Neuro: alert & oriented x3 Neck: no JVD present Lungs: CTA Heart: RRR, other: (pacing) Abdomen: NT/ND, soft Extremities: + edema B - Labs Result Diagrams: 11/16/18 07:02 11/17/18 12:02 Troponin/CKMB Troponin I 0.014 ng/mL (< 0.028) 11/14/18 04:46 - Assessment/Plan 1. Acute on chronic diastolic heart failure. 2. Restrictive pattern 3. Severe TR, Mod to severe MR 4. KALI on CKD. Followed by Nephrology. 5. Afib on flecainide and warfarin followed by Dr. Martinez. Seems regular. EKG with AP/INPATIENT NURSING AIDE. 6. Supratherapeutic INR, improved. 7. Cardiorenal syndrome suspected 8. Edema. No significant improvement. Continue diuretics biday. IV. Metalazone started today. May need repeat echo, the EF may have decreased with 100% pacing and she may need a bi-v pacemaker.
[2018-11-17] MEDS ORDERED: Fleet Enema 133 ML BOT FS PRN (19:46)
--- NOTE | 2018-11-17 20:11 | PRG ---
DATE OF SERVICE: 11/17/2018 SUBJECTIVE: The patient was seen and examined at bedside and overnight events noted. The patient denies any shortness of breath or chest pain or palpitation. No history of nausea or vomiting or diarrhea or fever or chills or cramps. OBJECTIVE: GENERAL: This is a well-built female, in no apparent distress. VITAL SIGNS: Temperature 98.7, pulse 68, respiratory rate 16, blood pressure 108/70. HEENT: Atraumatic, normocephalic. Oral mucosa is moist NECK: Supple. CARDIOVASCULAR: S1, S2 heard. Rate and rhythm regular. RESPIRATORY: Clear to auscultation. GASTROINTESTINAL: Abdomen is soft. MUSCULOSKELETAL: +1 edema. DERMATOLOGIC: No skin rash. NEUROLOGIC: Alert and awake and oriented X3. No focal neurologic deficits. Moving all the extremities. PSYCHIATRIC: Mood and affect normal. LABORATORY DATA: Potassium is 4.3, BUN is 56, creatinine is 2.1. ASSESSMENT AND PLAN: 1. Acute kidney injury on chronic kidney disease stage 4, likely cardiorenal syndrome. Agree with the diuretic dose yesterday, and seems like creatinine is stable. Monitor I's and O's strictly and monitor the weight. 2. Edema. Continue on Lasix. Metolazone added. Continue close monitoring of renal function and electrolytes. 3. Severe tricuspid regurgitation and mitral valve regurgitation. 4. Hyponatremia, limit fluid. 5. Cardiorenal syndrome. 6. Hypertension. Prognosis is guarded. Continue fluid restriction. Monitor I's and O's closely and renal function. We will follow. Job ID: [id number]
[2018-11-18] MEDS: Furosemide 40 MG/4 ML VIAL SLOW IVP SCH ×2 (06:16→14:08)
[2018-11-18 06:33] LABS: INR-International Normal Ratio 2.1; Prothrombin Time 23.5 SEC (12.0-14.7)
[2018-11-18 06:50] LABS: Anion Gap 15 mmol/L (10-20); BUN (Urea Nitrogen) 55 mg/dL (9.8-20.1); Calc. Creatinine Clearance 45 mL/min (70-130); Calcium 8.8 mg/dL (7.8-10.44); Carbon Dioxide 28 mmol/L (23-31); Chloride 96 mmol/L (98-107); Estimated GFR-MDRD 26; Glucose 75 mg/dL (83-110); Potassium 4.3 mmol/L (3.5-5.1); Sodium 135 mmol/L (136-145)
--- NOTE | 2018-11-18 07:09 | PRG ---
DATE OF SERVICE: 11/15/2018 SUBJECTIVE: Patient was seen and examined at bedside and overnight events noted. Patient denies any shortness of breath or chest pain or palpitation. No history of nausea or vomiting or diarrhea or fever or chills or cramps. OBJECTIVE: GENERAL: This is a well-built female, in no apparent distress. VITAL SIGNS: Temperature 97.5, pulse 62, respiratory rate 18, blood pressure 106/70. HEENT: Atraumatic, normocephalic. Oral mucosa is moist NECK: Supple. CARDIOVASCULAR: S1, S2 heard. Rate and rhythm regular. RESPIRATORY: Clear to auscultation. GASTROINTESTINAL: Abdomen is soft. MUSCULOSKELETAL: No tenderness. No edema. DERMATOLOGIC: No skin rash. NEUROLOGIC: Alert and awake and oriented X3. No focal neurologic deficits. Moving all the extremities. PSYCHIATRIC: Mood and affect normal. LABORATORY DATA: Potassium is 4.7, BUN is 52, creatinine 2.2. ASSESSMENT AND PLAN: 1. Acute kidney injury on chronic kidney disease stage 4, most likely cardiorenal syndrome IV fluids and Lasix today. 2. Elevated BNP. 3. Edema. 4. Hypertension. 5. Cardiorenal syndrome. 6. Prognosis guarded. 7. Severe tricuspid regurgitation. Okay with Lasix. We will monitor. Follow up with Cardiology. Job ID: [id number]
[2018-11-18] MEDS: Famotidine 20 MG TAB PO SCH (08:11)
[2018-11-18] MEDS: Metolazone 2.5 MG TAB PO SCH (08:11)
[2018-11-18] MEDS: Atorvastatin Calcium 10 MG TAB PO SCH (08:11)
[2018-11-18] MEDS: Flecainide 50 MG TAB PO SCH ×2 (08:11→21:07)
[2018-11-18] MEDS: Senokot S 8.6-50 MG TAB PO SCH ×2 (08:11→21:07)
[2018-11-18] MEDS: FLUoxetine HCl 20 MG CAP PO SCH (08:11)
[2018-11-18] MEDS: Ondansetron PF 4 MG/2 ML Vial SLOW IVP PRN (11:25)
--- NOTE | 2018-11-18 13:13 | PRG ---
DATE OF SERVICE: 11/18/2018 SUBJECTIVE: A 78-year-old female, being seen for acute kidney injury. The patient denies nausea, vomiting, or chest pain. OBJECTIVE: CONSTITUTIONAL: Awake, alert, in no acute distress. GENERAL APPEARANCE AND MENTAL STATUS: Fair. VITAL SIGNS: Pulse 60, breathing 16, blood pressure 90/57. HEAD/NECK: Normocephalic. Atraumatic. EYES: EOMI. No deformity. EARS: Clear. No ulcers. NOSE: Intact. No lesions. MOUTH: Clear. No discharge. THROAT: Clear. No exudate. LUNGS: Clear. No crackles. CARDIAC: S1, S2. No rub. ABDOMEN: Benign. Bowel sounds positive. GENITALIA/RECTUM: Ramires absent. BACK/EXTREMITIES: Edema 0+. NEUROLOGICAL: Alert and motor intact. SKIN: LYMPHATICS: LABORATORY DATA: Hemoglobin 9.9. Creatinine 2.2. ASSESSMENT AND PLAN: 1. Acute kidney injury, stable. 2. Hypertension. 3. Anemia, stable. 4. Medication based on GFR appropriate. No indication for dialysis. I would continue hydration and we will hold diuretics. I would also avoid Fleet Enema. Job ID: [id number]
[2018-11-18] MEDS: Warfarin Sodium 5 MG TAB PO SCH (17:06)
--- NOTE | 2018-11-18 18:14 | PDOC.PN ---
- Subjective Encounter Start Date: 11/18/18 Encounter Start Time: 16:35 Subjective: f/u for acute/chronic diast CHF with slow edema resolution. States still -: with LE edema and ambulated about 60' with PT. c/o easy fatigue but -: dyspnea improved. - Objective MAR Reviewed: Yes Vital Signs & Weight: Vital Signs (12 hours) Temp Pulse Pulse Pulse Pulse Resp BP 11/18/18 12:07 97.7 F 61 20 11/18/18 10:07 77 76 77 85/61 L 11/18/18 08:31 97.6 F 60 18 11/18/18 08:00 BP BP BP Pulse Ox 11/18/18 12:07 90/57 L 95 11/18/18 10:07 101/71 86/62 L 11/18/18 08:31 98/62 98 11/18/18 08:00 98 Weight Weight 293 lb 1.6 oz I&O: 11/17/18 11/18/18 11/19/18 06:59 06:59 06:59 Intake Total 840 1200 720 Balance 840 1200 720 Result Diagrams: 11/16/18 07:02 11/18/18 05:38 Additional Labs: Laboratory Tests 11/14/18 11/15/18 11/15/18 09:57 06:20 11:47 INR 4.1 H* 3.5 Sodium 133 L BUN 52 H Creatinine 2.31 H Estimated GFR (MDRD) 25 11/16/18 11/16/18 11/17/18 07:02 07:02 05:01 INR 3.3 2.5 Sodium 133 L BUN 54 H Creatinine 2.35 H Estimated GFR (MDRD) 24 Phys Exam - Physical Examination Constitutional: NAD alert, responsive HEENT: PERRLA, sclera anicteric, oral pharynx no lesions Neck: no nodes, no JVD, supple, full ROM few basilar crackles Respiratory: no wheezing II/ DANETTE in L/RUSB, S1, S2 Cardiovascular: RRR, no rub, gallop obese Gastrointestinal: soft, non-tender, no distention, positive bowel sounds Musculoskeletal: pulses present, edema present Neurological: normal sensation, moves all 4 limbs Psychiatric: A&O x 3 Skin: normal turgor, cap refill <2 seconds Dx/Plan (1) Acute on chronic diastolic (congestive) heart failure Code(s): I50.33 - ACUTE ON CHRONIC DIASTOLIC (CONGESTIVE) HEART FAILURE Status : Acute Comment: Slow clinical improvement despite IV Lasix, Zaroxolyn 2.5mg daily, accurate daily weight and I/O's, ? improving, 2D echo pending (2) Acute on chronic kidney failure Code(s): N17.9 - ACUTE KIDNEY FAILURE, UNSPECIFIED; N18.9 - CHRONIC KIDNEY DISEASE, UNSPECIFIED Status: Acute Comment: Renal function marginal with jose martinley cardiorenal syndrome given #1, avoid nephrotoxic meds and limit contrast exposure, ? new baseline (3) Anticoagulant long-term use Code(s): Z79.01 - [employer]INTENA[employer]CE (CURRENT) USE OF ANTICOAGULANTS Status: Chronic Comment: Initially supratherapeutic now improved and therapeutic, continue Coumadin with serial INR (4) Severe tricuspid valve regurgitation Code(s): I07.1 - RHEUMATIC TRICUSPID INSUFFICIENCY Status: Chronic Comment: Likely significant contribution to current clinical situation - Plan plan discussed w/ family, PT/OT, marriage and family social worker, out of bed/ambulate Continue Lasix IV and Zaroxolyn -: May not be able to adequately diurese given renal function and cardiorenal -: syndrome -: OOB with PT -: CM for HH options, may need to consider SNF * AM lab: BMP, PT/INR
[2018-11-19] MEDS: Furosemide 40 MG/4 ML VIAL SLOW IVP SCH ×2 (06:09→15:01)
[2018-11-19] MEDS: Senokot S 8.6-50 MG TAB PO SCH ×2 (08:37→20:08)
[2018-11-19] MEDS: Atorvastatin Calcium 10 MG TAB PO SCH (08:37)
[2018-11-19] MEDS: Flecainide 50 MG TAB PO SCH ×2 (08:38→20:08)
[2018-11-19] MEDS: FLUoxetine HCl 20 MG CAP PO SCH (08:39)
[2018-11-19 08:41] LABS: Anion Gap 15 mmol/L (10-20); BUN (Urea Nitrogen) 55 mg/dL (9.8-20.1); Calc. Creatinine Clearance 45 mL/min (70-130); Calcium 8.9 mg/dL (7.8-10.44); Carbon Dioxide 28 mmol/L (23-31); Chloride 94 mmol/L (98-107); Estimated GFR-MDRD 25; Glucose 105 mg/dL (83-110); Potassium 3.6 mmol/L (3.5-5.1); Sodium 133 mmol/L (136-145)
[2018-11-19 09:24] LABS: INR-International Normal Ratio 2.3; Prothrombin Time 25.3 SEC (12.0-14.7)
[2018-11-19] MEDS: Metolazone 2.5 MG TAB PO SCH (11:11)
[2018-11-19] MEDS: Famotidine 20 MG TAB PO SCH (11:12)
--- NOTE | 2018-11-19 12:39 | PRG ---
DATE OF SERVICE: 11/19/2018 SUBJECTIVE: A 78-year-old female, being seen for acute kidney injury. The patient denied nausea, vomiting, or chest pain. OBJECTIVE: CONSTITUTIONAL: The patient is awake and alert. VITAL SIGNS: Pulse 65, breathing 16, blood pressure 101/64. GENERAL APPEARANCE AND MENTAL STATUS: Fair. HEAD/NECK: Normocephalic. Atraumatic. EYES: EOMI. No deformity. EARS: Clear. No ulcers. NOSE: Intact. No lesions. MOUTH: Clear. No discharge. THROAT: Clear. No exudate. LUNGS: Clear. No crackles. CARDIAC: S1, S2. No rub. ABDOMEN: Benign. Bowel sounds positive. GENITALIA/RECTUM: Ramires absent. BACK/EXTREMITIES: Edema 0+. NEUROLOGICAL: Alert and motor intact. SKIN: LYMPHATICS: LABORATORY DATA: Labs reviewed. IMPRESSION AND PLAN: 1. Chronic kidney disease, stage 4, stable. 2. Hypertension, stable. 3. Anemia, stable. 4. Medication based on GFR, appropriate. Job ID: [id number]
[2018-11-19] MEDS: Warfarin Sodium 5 MG TAB PO SCH (17:08)
--- NOTE | 2018-11-19 19:31 | PDOC.CTH ---
Cardiology Progress Note - Subjective No new issues, Breathing better and able to sleep better at night but still has edema. - Objective Vital Signs Temp Pulse Resp BP BP BP Pulse Ox 11/19/18 16:00 97.4 F L 63 18 95/61 98 11/19/18 13:01 97.3 F L 62 20 89/57 L 89/57 L 98/63 95 11/19/18 08:00 95 11/19/18 07:30 97.9 F 61 18 92/57 L 95 Weight 301 lb 0.011 oz 11/18/18 11/19/18 11/20/18 06:59 06:59 06:59 Intake Total 1200 780 560 Output Total 500 Balance 1200 780 60 - Physical Examination General/Neuro: alert & oriented x3, NAD Neck: no JVD present Lungs: CTA, unlabored respirations Heart: RRR Abdomen: NT/ND Extremities: + edema B (3+) - Labs Result Diagrams: 11/16/18 07:02 11/19/18 08:11 Troponin/CKMB Troponin I 0.014 ng/mL (< 0.028) 11/14/18 04:46 - Assessment/Plan 1. Acute on chronic diastolic heart failure. 2. Restrictive pattern 3. Severe TR, Severe MR 4. KALI on CKD 5. Paroxysmal afib 6. KALI on CKD, cardiorenal most likely. PLAN: - Not diuresing well on IV lasix and metolazone. - Will plan on starting dobutamine drip to try to improve forward flow but most likely she will need intervention to her valve to help her LV function. - Continue to monitor renal function. - Will transfer to telemetry for this or IMCU. - May consider BiV pacing if LV function starts to come down.
--- NOTE | 2018-11-19 20:40 | PDOC.PN ---
- Subjective Encounter Start Date: 11/19/18 Encounter Start Time: 17:20 Subjective: f/u for acute/chronic diast CHF with minimal improvement in LE edema -: on IV Lasix/Zaroxolyn. Weight appears to be increasing despite diuretics -: Minimal ambulation today due to leg fatigue. - Objective MAR Reviewed: Yes Vital Signs & Weight: Vital Signs (12 hours) Temp Pulse Resp BP BP BP Pulse Ox 11/19/18 19:32 97.2 F L 64 16 98/63 98 11/19/18 16:00 97.4 F L 63 18 95/61 98 11/19/18 13:01 97.3 F L 62 20 89/57 L 89/57 L 98/63 95 Weight Weight 301 lb 0.011 oz I&O: 11/18/18 11/19/18 11/20/18 06:59 06:59 06:59 Intake Total 1200 780 560 Output Total 500 Balance 1200 780 60 Result Diagrams: 11/16/18 07:02 11/19/18 08:11 Additional Labs: Laboratory Tests 11/14/18 11/15/18 11/15/18 09:57 06:20 11:47 INR 4.1 H* 3.5 Sodium 133 L BUN 52 H Creatinine 2.31 H Estimated GFR (MDRD) 25 11/16/18 11/16/18 11/17/18 07:02 07:02 05:01 INR 3.3 2.5 Sodium 133 L BUN 54 H Creatinine 2.35 H Estimated GFR (MDRD) 24 Radiology Reviewed by me: Yes (Echo - EF 50-55%, Grade II/III diast dysfx, severe MR/TR) Phys Exam - Physical Examination Constitutional: NAD HEENT: PERRLA, sclera anicteric, oral pharynx no lesions Neck: no nodes, no JVD, supple, full ROM diminished in bases Respiratory: no wheezing S1, S2 Cardiovascular: RRR, no rub, gallop obese Gastrointestinal: soft, no distention, positive bowel sounds edema to proximal thighs/abd Musculoskeletal: pulses present, edema present Neurological: normal sensation, moves all 4 limbs Psychiatric: A&O x 3 Skin: normal turgor, cap refill <2 seconds Dx/Plan (1) Acute on chronic diastolic (congestive) heart failure Code(s): I50.33 - ACUTE ON CHRONIC DIASTOLIC (CONGESTIVE) HEART FAILURE Status : Acute Comment: Minimal clinical improvement despite IV Lasix, Zaroxolyn 2.5mg daily, accurate daily weight and I/O's, recommend Dobutamine/Dopamine gtt for inotropic support/diuresis (2) Acute on chronic kidney failure Code(s): N17.9 - ACUTE KIDNEY FAILURE, UNSPECIFIED; N18.9 - CHRONIC KIDNEY DISEASE, UNSPECIFIED Status: Acute Comment: Renal function marginal with jose martinley cardiorenal syndrome given #1, avoid nephrotoxic meds and limit contrast exposure, ? 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 Status: Chronic Comment: Initially supratherapeutic now improved and therapeutic, continue Coumadin with serial INR (4) Severe mitral regurgitation Code(s): I34.0 - NONRHEUMATIC MITRAL (VALVE) INSUFFICIENCY Status: Chronic Comment: May need to consider surgical intervention for volume mgmt (5) Severe tricuspid valve regurgitation Code(s): I07.1 - RHEUMATIC TRICUSPID INSUFFICIENCY Status: Chronic Comment: Likely significant contribution to current clinical situation - Plan plan discussed w/ family, PT/OT, social studies teacher, respiratory therapy, out of bed/ambulate Stable currently -: Consider Dobutamine/Dopamine gtt -: OOB with PT -: SNF options pending -: Continue Flecainide * Continue Coumadin 5mg daily * AM lab: PT/INR
[2018-11-19] MEDS: DOBUTamine 500 mg/250 ml 250 ML IVPB SCH (22:22)
[2018-11-20 05:05] LABS: INR-International Normal Ratio 2.3; Prothrombin Time 25.7 SEC (12.0-14.7)
[2018-11-20] MEDS: Atorvastatin Calcium 10 MG TAB PO SCH (08:47)
[2018-11-20] MEDS: FLUoxetine HCl 20 MG CAP PO SCH (08:47)
[2018-11-20] MEDS: Senokot S 8.6-50 MG TAB PO SCH ×2 (08:47→21:27)
[2018-11-20] MEDS: Metolazone 2.5 MG TAB PO SCH (08:47)
[2018-11-20] MEDS: Famotidine 20 MG TAB PO SCH (08:48)
[2018-11-20] MEDS: Flecainide 50 MG TAB PO SCH ×2 (08:48→21:27)
[2018-11-20 11:11] LABS: Anion Gap 12 mmol/L (10-20); BUN (Urea Nitrogen) 53 mg/dL (9.8-20.1); Calc. Creatinine Clearance 49 mL/min (70-130); Calcium 8.3 mg/dL (7.8-10.44); Carbon Dioxide 29 mmol/L (23-31); Chloride 95 mmol/L (98-107); Estimated GFR-MDRD 29; Glucose 112 mg/dL (83-110); Sodium 133 mmol/L (136-145)
[2018-11-20] MEDS ORDERED: Potassium Chloride 20 MEQ TAB PO SCH (12:00)
--- NOTE | 2018-11-20 12:13 | PRG ---
DATE OF SERVICE: 11/20/2018 SUBJECTIVE: This is a 78-year-old female being seen for acute kidney injury. The patient denied nausea, vomiting or chest pain. OBJECTIVE: GENERAL: The patient is awake and alert. VITAL SIGNS: Afebrile, pulse 96, breathing 16, and blood pressure 136/55. GENERAL APPEARANCE AND MENTAL STATUS: Fair. HEAD/NECK: Normocephalic. Atraumatic. EYES: EOMI. No deformity. EARS: Clear. No ulcers. NOSE: Intact. No lesions. MOUTH: Clear. No discharge. THROAT: Clear. No exudate. LUNGS: Clear. No crackles. CARDIAC: S1, S2. No rub. ABDOMEN: Benign. Bowel sounds positive. GENITALIA/RECTUM: Ramires absent. BACK/EXTREMITIES: Edema 0+. NEUROLOGICAL: Alert and motor intact. SKIN: LYMPHATICS: LABORATORY DATA: Hemoglobin 9.9 and creatinine 2.1. IMPRESSION: 1. Acute kidney injury, improved. 2. Hypertension, stable. 3. Hypokalemia. Recommend 20 mEq of potassium and then rechecking potassium again today and high potassium diet. 4. Anemia, stable. 5. Medication based on GFR is appropriate. Job ID: [id number]
[2018-11-20] MEDS: Warfarin Sodium 5 MG TAB PO SCH (16:20)
--- NOTE | 2018-11-20 17:59 | PDOC.PN ---
- Subjective Encounter Start Date: 11/20/18 Encounter Start Time: 12:15 Subjective: f/u for acute/chronic diast CHF with multivalvular disease and recalcitrant -: edema. Started on Dobutamine gtt for inotropic support and renal perfusion -: Feels ok overall. - Objective MAR Reviewed: Yes Vital Signs & Weight: Vital Signs (12 hours) Temp Pulse Pulse Pulse Resp BP BP 11/20/18 16:00 97.5 F L 67 17 11/20/18 12:00 97.5 F L 72 16 11/20/18 10:33 66 66 136/55 L 119/59 L 11/20/18 08:00 97.4 F L 66 18 BP BP BP BP Pulse Ox 11/20/18 16:00 128/68 99 11/20/18 12:00 127/61 97 11/20/18 10:33 11/20/18 08:00 131/61 93/50 L 106/51 L 126/55 L 96 Weight Weight 289 lb 1.6 oz I&O: 11/19/18 11/20/18 11/21/18 06:59 06:59 06:59 Intake Total 910 777 7186 Output Total 1350 600 Balance 780 -550 900 Result Diagrams: 11/16/18 07:02 11/20/18 10:41 Additional Labs: Laboratory Tests 11/14/18 11/15/18 11/15/18 09:57 06:20 11:47 PT INR 4.1 H* 3.5 Sodium 133 L BUN 52 H Creatinine 2.31 H Estimated GFR (MDRD) 11/16/18 11/16/18 11/17/18 07:02 07:02 05:01 PT INR 3.3 2.5 Sodium 133 L BUN 54 H Creatinine 2.35 H Estimated GFR (MDRD) 11/19/18 11/20/18 08:11 04:05 PT 25.7 H INR 2.3 Sodium BUN Creatinine 2.30 H Estimated GFR (MDRD) Phys Exam - Physical Examination Constitutional: NAD HEENT: PERRLA, sclera anicteric, oral pharynx no lesions Neck: no nodes, no JVD, supple, full ROM diminished in bases S1, S2 Cardiovascular: RRR, no significant murmur, no rub, gallop obese Gastrointestinal: non-tender, no distention, positive bowel sounds edema to proximal thighs Musculoskeletal: pulses present, edema present Neurological: normal sensation, moves all 4 limbs Psychiatric: A&O x 3 Skin: normal turgor, cap refill <2 seconds Dx/Plan (1) Acute on chronic diastolic (congestive) heart failure Code(s): I50.33 - ACUTE ON CHRONIC DIASTOLIC (CONGESTIVE) HEART FAILURE Status : Acute Comment: Minimal clinical improvement despite IV Lasix, Zaroxolyn 2.5mg daily, accurate daily weight and I/O's, initiated on Dobutamine gtt for inotropic and renal perfusion support (2) Acute on chronic kidney failure Code(s): N17.9 - ACUTE KIDNEY FAILURE, UNSPECIFIED; N18.9 - CHRONIC KIDNEY DISEASE, UNSPECIFIED Status: Acute Comment: Renal function marginal with jose martinley cardiorenal syndrome given #1, avoid nephrotoxic meds and limit contrast exposure, ? 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 OF ANTICOAGULANTS Status: Chronic Comment: Initially supratherapeutic now improved and therapeutic, continue Coumadin with serial INR (4) Severe mitral regurgitation Code(s): I34.0 - NONRHEUMATIC MITRAL (VALVE) INSUFFICIENCY Status: Chronic Comment: May need to consider surgical intervention for volume mgmt (5) Severe tricuspid valve regurgitation Code(s): I07.1 - RHEUMATIC TRICUSPID INSUFFICIENCY Status: Chronic Comment: Likely significant contribution to current clinical situation - Plan plan discussed w/ family, PT/OT, social media senior associate, out of bed/ambulate Continue Dobutamine gtt for inotropic support -: OOB with PT -: Continue Lasix and Zaroxolyn -: Continue Coumadin daily -: SNF options * .
--- NOTE | 2018-11-20 18:56 | PDOC.CTH ---
Cardiology Progress Note - Subjective She has diuresed much better and has lost about 10 pounds since yesterday. She feels better as well. - Objective Vital Signs Temp Pulse Pulse Pulse Resp BP BP 11/20/18 16:00 97.5 F L 67 17 11/20/18 12:00 97.5 F L 72 16 11/20/18 10:33 66 66 136/55 L 119/59 L 11/20/18 08:00 97.4 F L 66 18 BP BP BP BP Pulse Ox 11/20/18 16:00 128/68 99 11/20/18 12:00 127/61 97 11/20/18 10:33 11/20/18 08:00 131/61 93/50 L 106/51 L 126/55 L 96 Weight 289 lb 1.6 oz 11/19/18 11/20/18 11/21/18 06:59 06:59 06:59 Intake Total 531 153 7831 Output Total 1350 600 Balance 780 -550 900 - Physical Examination General/Neuro: alert & oriented x3, NAD Neck: no JVD present Lungs: unlabored respirations Heart: RRR Abdomen: NT/ND Extremities: + edema B (2+) - Telemetry Telemetry Rhythm: NSR - Labs Result Diagrams: 11/16/18 07:02 11/20/18 10:41 Troponin/CKMB Troponin I 0.014 ng/mL (< 0.028) 11/14/18 04:46 - Assessment/Plan 1. Acute on chronic diastolic heart failure. 2. Restrictive pattern 3. Severe TR, Severe MR 4. KALI on CKD 5. Paroxysmal afib 6. KALI on CKD, cardiorenal most likely. PLAN: - Improved diuresis. - Continue dobutamine drip. - Continue to monitor renal function. - May consider BiV pacing if LV function starts to come down. - May need mitral valve repair/replacement in the future. - Replace K.
[2018-11-20] MEDS: DOBUTamine 500 mg/250 ml 250 ML IVPB SCH (23:30)
[2018-11-21 07:09] LABS: INR-International Normal Ratio 1.9; Prothrombin Time 21.5 SEC (12.0-14.7)
[2018-11-21] MEDS: Metolazone 2.5 MG TAB PO SCH (09:05)
[2018-11-21] MEDS: Senokot S 8.6-50 MG TAB PO SCH ×2 (09:05→20:52)
[2018-11-21] MEDS: Flecainide 50 MG TAB PO SCH ×2 (09:06→20:52)
[2018-11-21] MEDS: Atorvastatin Calcium 10 MG TAB PO SCH (09:06)
[2018-11-21] MEDS: Famotidine 20 MG TAB PO SCH (09:06)
[2018-11-21] MEDS: FLUoxetine HCl 20 MG CAP PO SCH (09:06)
--- NOTE | 2018-11-21 10:54 | PRG ---
DATE OF SERVICE: 11/21/2018 SUBJECTIVE: This is a 78-year-old female being seen for acute kidney injury. The patient denied nausea, vomiting, or chest pain. OBJECTIVE: CONSTITUTIONAL: The patient is awake and alert. VITAL SIGNS: Pulse 65, breathing 16, blood pressure 121/56. GENERAL APPEARANCE AND MENTAL STATUS: Fair. HEAD/NECK: Normocephalic. Atraumatic. EYES: EOMI. No deformity. EARS: Clear. No ulcers. NOSE: Intact. No lesions. MOUTH: Clear. No discharge. THROAT: Clear. No exudate. LUNGS: Clear. No crackles. CARDIAC: S1, S2. No rub. ABDOMEN: Benign. Bowel sounds positive. GENITALIA/RECTUM: Ramires absent. BACK/EXTREMITIES: Edema 0+. NEUROLOGICAL: Alert and motor intact. SKIN: LYMPHATICS: LABORATORY DATA: Labs show hemoglobin 9.9. Creatinine 2.0. IMPRESSION AND PLAN: 1. Acute kidney injury, improved. 2. Hypertension, stable. 3. Anemia, stable. 4. Chronic kidney disease, stage 4, stable. 5. Hypokalemia, recommend 40 mEq of potassium. Job ID: [id number]
[2018-11-21] MEDS: DOBUTamine 500 mg/250 ml 250 ML IVPB SCH (11:44)
[2018-11-21] MEDS: Milk Of Magnesia 30 ML UDCUP PO PRN (11:45)
[2018-11-21 11:50] LABS: Anion Gap 12 mmol/L (10-20); BUN (Urea Nitrogen) 44 mg/dL (9.8-20.1); Calc. Creatinine Clearance 61 mL/min (70-130); Calcium 8.1 mg/dL (7.8-10.44); Carbon Dioxide 27 mmol/L (23-31); Chloride 94 mmol/L (98-107); Estimated GFR-MDRD 37; Glucose 136 mg/dL (83-110); Potassium 3.2 mmol/L (3.5-5.1); Sodium 130 mmol/L (136-145)
[2018-11-21] MEDS ORDERED: Potassium Chloride 20 MEQ TAB PO SCH (13:00)
[2018-11-21] MEDS: Furosemide 40 MG/4 ML VIAL SLOW IVP SCH (13:46)
[2018-11-21] MEDS: Ondansetron PF 4 MG/2 ML Vial SLOW IVP PRN (14:57)
[2018-11-21] MEDS: Warfarin Sodium 5 MG TAB PO SCH (17:17)
--- NOTE | 2018-11-21 17:39 | PDOC.CTH ---
Cardiology Progress Note - Subjective Her edema is unchanged. she is neutral with diuresis today. She feels no improvement. - Objective Vital Signs Temp Pulse Resp BP Pulse Ox 11/21/18 12:35 97.6 F 68 18 108/59 L 96 11/21/18 08:11 97.9 F 65 16 107/53 L 95 Weight 290 lb 6 oz 11/20/18 11/21/18 11/22/18 06:59 06:59 06:59 Intake Total 800 2670 Output Total 1350 2150 Balance -550 520 - Physical Examination General/Neuro: alert & oriented x3, NAD Neck: no JVD present Lungs: CTA, unlabored respirations Heart: RRR Abdomen: NT/ND Extremities: + edema B (2+) - Telemetry Telemetry Rhythm: NSR - Labs Result Diagrams: 11/16/18 07:02 11/21/18 11:09 Troponin/CKMB Troponin I 0.014 ng/mL (< 0.028) 11/14/18 04:46 - Assessment/Plan 1. Acute on chronic diastolic heart failure. 2. Restrictive pattern 3. Severe TR, Severe MR 4. KALI on CKD 5. Paroxysmal afib 6. KALI on CKD, cardiorenal most likely, improving. PLAN: - WIll increase lasix to 80 mg IV BID. - Continue dobutamine drip. - Continue to monitor renal function. - May need mitral valve repair/replacement in the future. - Replace K.
[2018-11-21] MEDS ORDERED: Furosemide 40 MG/4 ML VIAL SLOW IVP SCH (18:15)
--- NOTE | 2018-11-21 18:25 | PDOC.PN ---
- Subjective Encounter Start Date: 11/21/18 Encounter Start Time: 15:05 Subjective: f/u for acute/chronic diast CHF with multivalvular dz on Lasix and -: Dobutamine gtt. Feels ok but fatigues easily with ambulating. - Objective MAR Reviewed: Yes Vital Signs & Weight: Vital Signs (12 hours) Temp Pulse Resp BP Pulse Ox 11/21/18 12:35 97.6 F 68 18 108/59 L 96 11/21/18 08:11 97.9 F 65 16 107/53 L 95 Weight Weight 290 lb 6 oz I&O: 11/20/18 11/21/18 11/22/18 06:59 06:59 06:59 Intake Total 800 2670 Output Total 1350 2150 Balance -550 520 Result Diagrams: 11/16/18 07:02 11/21/18 11:09 Additional Labs: Laboratory Tests 11/14/18 11/15/18 11/15/18 09:57 06:20 11:47 PT INR 4.1 H* 3.5 Sodium 133 L BUN 52 H Creatinine 2.31 H Estimated GFR (MDRD) 11/16/18 11/16/18 11/17/18 07:02 07:02 05:01 PT INR 3.3 2.5 Sodium 133 L BUN 54 H Creatinine 2.35 H Estimated GFR (MDRD) 11/19/18 11/20/18 08:11 04:05 PT 25.7 H INR 2.3 Sodium BUN Creatinine 2.30 H Estimated GFR (MDRD) EKG Reviewed by me: Yes (Tele - SR) Phys Exam - Physical Examination Constitutional: NAD HEENT: PERRLA, sclera anicteric, oral pharynx no lesions Neck: no nodes, no JVD, supple, full ROM Respiratory: no wheezing, no rales, no rhonchi, clear to auscultation bilateral II/ DANETTE across the precordium, S1, S2 Cardiovascular: RRR, no rub, gallop Gastrointestinal: soft, non-tender, no distention, positive bowel sounds Musculoskeletal: pulses present, edema present Neurological: normal sensation, moves all 4 limbs Psychiatric: A&O x 3 Skin: normal turgor, cap refill <2 seconds Dx/Plan (1) Acute on chronic diastolic (congestive) heart failure Code(s): I50.33 - ACUTE ON CHRONIC DIASTOLIC (CONGESTIVE) HEART FAILURE Status : Acute Comment: Minimal clinical improvement despite IV Lasix, Zaroxolyn 2.5mg daily, accurate daily weight and I/O's, initiated on Dobutamine gtt for inotropic and renal perfusion support, continue current infusion and monitor fluid balance (2) Acute on chronic kidney failure Code(s): N17.9 - ACUTE KIDNEY FAILURE, UNSPECIFIED; N18.9 - CHRONIC KIDNEY DISEASE, UNSPECIFIED Status: Acute Comment: Renal function marginal with jose martinley cardiorenal syndrome given #1, avoid nephrotoxic meds and limit contrast exposure, ? 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 Status: Chronic Comment: Initially supratherapeutic now improved and therapeutic, continue Coumadin with serial INR (4) Severe mitral regurgitation Code(s): I34.0 - NONRHEUMATIC MITRAL (VALVE) INSUFFICIENCY Status: Chronic Comment: May need to consider surgical intervention for volume mgmt (5) Severe tricuspid valve regurgitation Code(s): I07.1 - RHEUMATIC TRICUSPID INSUFFICIENCY Status: Chronic Comment: Likely significant contribution to current clinical situation (6) Physical deconditioning Code(s): R53.81 - OTHER MALAISE Status: Chronic Comment: Likely will benefit from SNF/swing bed before transitioning home (7) Hypokalemia Code(s): E87.6 - HYPOKALEMIA Status: Acute Comment: Secondary to Lasix, KCL supplementation, serial monitoring - Plan PT/OT, social worker assistant, out of bed/ambulate Continue Dobutamine gtt -: Lasix 80mg IV BID -: Continue Zaroxolyn 2.5mg daily -: OOB with PT -: CM for SNF options * KCL 40meq BID * AM lab: BMP, INR
[2018-11-21] MEDS: Potassium Chloride 20 MEQ TAB PO SCH (20:52)
[2018-11-22] MEDS: DOBUTamine 500 mg/250 ml 250 ML IVPB SCH ×2 (00:35→14:32)
[2018-11-22] MEDS: Furosemide 40 MG/4 ML VIAL SLOW IVP SCH ×2 (05:59→14:28)
[2018-11-22 07:46] LABS: INR-International Normal Ratio 2.1; Prothrombin Time 23.5 SEC (12.0-14.7)
[2018-11-22 07:56] LABS: Anion Gap 13 mmol/L (10-20); BUN (Urea Nitrogen) 40 mg/dL (9.8-20.1); Calc. Creatinine Clearance 60 mL/min (70-130); Calcium 8.6 mg/dL (7.8-10.44); Carbon Dioxide 30 mmol/L (23-31); Chloride 92 mmol/L (98-107); Estimated GFR-MDRD 37; Glucose 75 mg/dL (83-110); Potassium 3.7 mmol/L (3.5-5.1); Sodium 131 mmol/L (136-145)
[2018-11-22] MEDS: Flecainide 50 MG TAB PO SCH ×2 (09:19→20:37)
[2018-11-22] MEDS: Atorvastatin Calcium 10 MG TAB PO SCH (09:19)
[2018-11-22] MEDS: Potassium Chloride 20 MEQ TAB PO SCH ×2 (09:20→20:37)
[2018-11-22] MEDS: FLUoxetine HCl 20 MG CAP PO SCH (09:20)
[2018-11-22] MEDS: Metolazone 2.5 MG TAB PO SCH (09:20)
[2018-11-22] MEDS: Senokot S 8.6-50 MG TAB PO SCH ×2 (09:21→20:37)
[2018-11-22] MEDS: Famotidine 20 MG TAB PO SCH (09:21)
--- NOTE | 2018-11-22 12:31 | PRG ---
DATE OF SERVICE: 11/22/2018 SUBJECTIVE: A 78-year-old female, being seen for acute kidney injury. The patient denied nausea, vomiting, or chest pain. OBJECTIVE: See above. CONSTITUTIONAL: Awake, alert, in no acute distress. VITAL SIGNS: Pulse 75, breathing 16, blood pressure 141/51. GENERAL APPEARANCE AND MENTAL STATUS: Fair. HEAD/NECK: Normocephalic. Atraumatic. EYES: EOMI. No deformity. EARS: Clear. No ulcers. NOSE: Intact. No lesions. MOUTH: Clear. No discharge. THROAT: Clear. No exudate. LUNGS: Clear. No crackles. CARDIAC: S1, S2. No rub. ABDOMEN: Benign. Bowel sounds positive. GENITALIA/RECTUM: Ramires absent. BACK/EXTREMITIES: Edema 0+. NEUROLOGICAL: Alert and motor intact. SKIN: LYMPHATICS: LABORATORY DATA: Reviewed. ASSESSMENT AND PLAN: 1. Chronic kidney disease, stage 3, stable. 2. Hypertension. 3. Anemia, stable. 4. Hyponatremia, stable. 5. Hypokalemia, stable. 6. Edema, use Lasix 20 to 40 mg once a day as scheduled. Job ID: [id number]
[2018-11-22] MEDS: Acetaminophen 325 MG TAB PO PRN (12:49)
[2018-11-22] MEDS: Ondansetron PF 4 MG/2 ML Vial SLOW IVP PRN (12:51)
--- NOTE | 2018-11-22 15:14 | PDOC.CTH ---
Cardiology Progress Note - Subjective She is feeling better today. - Objective Vital Signs Temp Pulse Resp BP BP Pulse Ox 11/22/18 12:00 97.8 F 68 17 128/51 L 97 11/22/18 08:00 97.9 F 68 18 141/51 H 97 11/22/18 03:52 97.6 F 60 20 122/59 L 98 Weight 288 lb 11/21/18 11/22/18 11/23/18 06:59 06:59 06:59 Intake Total 2670 1490 Output Total 2150 2100 Balance 520 -610 - Physical Examination General/Neuro: alert & oriented x3, NAD Neck: no JVD present Lungs: CTA, unlabored respirations Heart: RRR Abdomen: NT/ND Extremities: + edema B (2+) - Telemetry Telemetry Rhythm: NSR - Labs Result Diagrams: 11/16/18 07:02 11/22/18 07:02 Troponin/CKMB Troponin I 0.014 ng/mL (< 0.028) 11/14/18 04:46 - Assessment/Plan 1. Acute on chronic diastolic heart failure. 2. Restrictive pattern 3. Severe TR, Severe MR 4. Paroxysmal afib 5. KALI on CKD, cardiorenal most likely, improving. PLAN: - Will start to back off on Lasix today. - Continue dobutamine drip today but will attempt to stop tomorrow. - Continue to monitor renal function. - May need mitral valve repair/replacement in the future. - Replace K. - Increase PT as tolerated.
--- NOTE | 2018-11-22 16:01 | PDOC.PN ---
- Subjective Encounter Start Date: 11/22/18 Encounter Start Time: 15:00 Ms. Vigil was seen today in follow-up of CHF exacerbation. She says she feels a bit weak. She denies any chest pain. - Objective MAR Reviewed: Yes Vital Signs & Weight: Vital Signs (12 hours) Temp Pulse Resp BP Pulse Ox 11/22/18 12:00 97.8 F 68 17 128/51 L 97 11/22/18 08:00 97.9 F 68 18 141/51 H 97 Weight Weight 288 lb I&O: 11/21/18 11/22/18 11/23/18 06:59 06:59 06:59 Intake Total 2670 1490 Output Total 2150 2100 Balance 520 -610 Result Diagrams: 11/16/18 07:02 11/22/18 07:02 Phys Exam - Physical Examination HEENT: PERRLA Respiratory: no wheezing + rales at the bases Cardiovascular: RRR 2/6 systolic murmur Gastrointestinal: soft, non-tender, no distention, positive bowel sounds Musculoskeletal: pulses present, edema present Dx/Plan (1) Acute on chronic diastolic (congestive) heart failure Code(s): I50.33 - ACUTE ON CHRONIC DIASTOLIC (CONGESTIVE) HEART FAILURE Status : Acute Comment: Minimal clinical improvement despite IV Lasix, Zaroxolyn 2.5mg daily, accurate daily weight and I/O's, initiated on Dobutamine gtt for inotropic and renal perfusion support, continue current infusion and monitor fluid balance (2) Constipation Code(s): K59.00 - CONSTIPATION, UNSPECIFIED Status: Acute (3) Nausea Code(s): R11.0 - NAUSEA Status: Acute (4) Severe mitral regurgitation Code(s): I34.0 - NONRHEUMATIC MITRAL (VALVE) INSUFFICIENCY Status: Chronic Comment: May need to consider surgical intervention for volume mgmt (5) Physical deconditioning Code(s): R53.81 - OTHER MALAISE Status: Chronic Comment: Likely will benefit from SNF/swing bed before transitioning home (6) Atrial fibrillation Code(s): I48.91 - UNSPECIFIED ATRIAL FIBRILLATION Status: Chronic (7) Chronic anticoagulation Code(s): Z79.01 - LONGTERM (CURRENT) USE OF ANTICOAGULANTS Status: Chronic - Plan * Acute on chronic diastolic heart failure- improved, she is diuresing well on Dobutamine and Lasix * Severe Mitral regurgitation- she may need surgery at some point * Chronic kidney disease- stable * Persistent Nausea- this could be due to constipation- will increase the dose of Phenergan, and manage the constipation. * Chronic anticoagulation- her INR is therapeutic
[2018-11-22] MEDS: Warfarin Sodium 5 MG TAB PO SCH (17:56)
[2018-11-22] MEDS: Bisacodyl 10 MG SUPP PR PRN (17:56)
[2018-11-22] MEDS ORDERED: Hydrocortisone/Pramoxine (Proctofoam HC) 10 GM BOX TOP PRN (20:58)
[2018-11-22] MEDS ORDERED: Fleet Enema 133 ML BOT PR PRN (20:59)
[2018-11-23] MEDS: Promethazine HCl 6.25 MG/5 ML Syrup PO PRN (00:23)
[2018-11-23] MEDS: DOBUTamine 500 mg/250 ml 250 ML IVPB SCH ×2 (01:39→15:05)
[2018-11-23] MEDS: Furosemide 80 MG TAB PO SCH (09:05)
[2018-11-23] MEDS: Atorvastatin Calcium 10 MG TAB PO SCH (09:06)
[2018-11-23] MEDS: Famotidine 20 MG TAB PO SCH (09:06)
[2018-11-23] MEDS: Flecainide 50 MG TAB PO SCH ×2 (09:06→21:55)
[2018-11-23] MEDS: Metolazone 2.5 MG TAB PO SCH (09:06)
[2018-11-23 09:07] LABS: INR-International Normal Ratio 2.2; Prothrombin Time 24.7 SEC (12.0-14.7)
[2018-11-23] MEDS: FLUoxetine HCl 20 MG CAP PO SCH (09:07)
[2018-11-23] MEDS: Potassium Chloride 20 MEQ TAB PO SCH ×2 (09:07→21:55)
[2018-11-23] MEDS: Senokot S 8.6-50 MG TAB PO SCH ×2 (09:07→21:59)
[2018-11-23 09:23] LABS: Anion Gap 13 mmol/L (10-20); BUN (Urea Nitrogen) 40 mg/dL (9.8-20.1); Calc. Creatinine Clearance 52 mL/min (70-130); Calcium 8.7 mg/dL (7.8-10.44); Carbon Dioxide 30 mmol/L (23-31); Chloride 93 mmol/L (98-107); Estimated GFR-MDRD 31; Glucose 82 mg/dL (83-110); Potassium 3.7 mmol/L (3.5-5.1); Sodium 132 mmol/L (136-145)
--- NOTE | 2018-11-23 12:46 | PDOC.PN ---
- Subjective Encounter Start Date: 11/23/18 Encounter Start Time: 12:45 Ms. Vigil was seen today in follow-up of CHF exacerbation. She does not have any new complaints. She says she is feeling better today, less short of breath. - Objective MAR Reviewed: Yes Vital Signs & Weight: Vital Signs (12 hours) Temp Pulse Resp BP Pulse Ox 11/23/18 08:00 98 11/23/18 07:25 97.8 F 62 17 117/58 L 97 11/23/18 04:17 98.1 F 61 19 123/58 L 97 Weight Weight 286 lb 6.4 oz I&O: 11/22/18 11/23/18 11/24/18 06:59 06:59 06:59 Intake Total 1490 960 Output Total 2100 1300 Balance -610 -340 Result Diagrams: 11/16/18 07:02 11/23/18 08:52 Phys Exam - Physical Examination HEENT: PERRLA Respiratory: no wheezing, no rales, no rhonchi, clear to auscultation bilateral Cardiovascular: RRR, no significant murmur, no rub Gastrointestinal: soft, non-tender, no distention, positive bowel sounds Musculoskeletal: no edema Dx/Plan (1) Acute on chronic diastolic (congestive) heart failure Code(s): I50.33 - ACUTE ON CHRONIC DIASTOLIC (CONGESTIVE) HEART FAILURE Status : Acute Comment: Minimal clinical improvement despite IV Lasix, Zaroxolyn 2.5mg daily, accurate daily weight and I/O's, initiated on Dobutamine gtt for inotropic and renal perfusion support, continue current infusion and monitor fluid balance (2) Constipation Code(s): K59.00 - CONSTIPATION, UNSPECIFIED Status: Acute (3) Nausea Code(s): R11.0 - NAUSEA Status: Acute (4) Severe mitral regurgitation Code(s): I34.0 - NONRHEUMATIC MITRAL (VALVE) INSUFFICIENCY Status: Chronic Comment: May need to consider surgical intervention for volume mgmt (5) Physical deconditioning Code(s): R53.81 - OTHER MALAISE Status: Chronic Comment: Likely will benefit from SNF/swing bed before transitioning home (6) Atrial fibrillation Code(s): I48.91 - UNSPECIFIED ATRIAL FIBRILLATION Status: Chronic (7) Chronic anticoagulation Code(s): 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
--- NOTE | 2018-11-23 15:41 | PDOC.CTH ---
Cardiology Progress Note - Subjective Doing better today. Diuresed. Lost about 4 pounds since yesterday. - Objective Vital Signs Temp Pulse Resp BP BP Pulse Ox 11/23/18 11:45 97.8 F 62 13 110/52 L 97 11/23/18 08:00 98 11/23/18 07:25 97.8 F 62 17 117/58 L 97 11/23/18 04:17 98.1 F 61 19 123/58 L 97 Weight 286 lb 6.4 oz 11/22/18 11/23/18 11/24/18 06:59 06:59 06:59 Intake Total 1490 960 Output Total 2100 1300 Balance -610 -340 - Physical Examination General/Neuro: alert & oriented x3, NAD Lungs: CTA, unlabored respirations Heart: RRR Abdomen: NT/ND Extremities: + edema B (2+) - Telemetry Telemetry Rhythm: NSR - Labs Result Diagrams: 11/16/18 07:02 11/23/18 08:52 Troponin/CKMB Troponin I 0.014 ng/mL (< 0.028) 11/14/18 04:46 - Assessment/Plan 1. Acute on chronic diastolic heart failure. 2. Restrictive pattern 3. Severe TR, Severe MR 4. Paroxysmal afib 5. KALI on CKD, cardiorenal most likely, improving. PLAN: - Continue dobutamine drip for now. - Continue to monitor renal function. - May need mitral valve repair/replacement in the future. - Increase PT as tolerated. - Continue current lasix dose.
[2018-11-23] MEDS: Warfarin Sodium 5 MG TAB PO SCH (17:11)
[2018-11-24] MEDS: DOBUTamine 500 mg/250 ml 250 ML IVPB SCH ×2 (05:20→19:01)
[2018-11-24 08:04] LABS: Prothrombin Time 23.1 SEC (12.0-14.7)
[2018-11-24] MEDS: Famotidine 20 MG TAB PO SCH (09:43)
[2018-11-24] MEDS: Furosemide 80 MG TAB PO SCH (09:44)
[2018-11-24] MEDS: Metolazone 2.5 MG TAB PO SCH (09:44)
[2018-11-24] MEDS: Flecainide 50 MG TAB PO SCH ×2 (09:44→20:56)
[2018-11-24] MEDS: FLUoxetine HCl 20 MG CAP PO SCH (09:44)
[2018-11-24] MEDS: Senokot S 8.6-50 MG TAB PO SCH ×3 (09:44→20:55)
[2018-11-24] MEDS: Potassium Chloride 20 MEQ TAB PO SCH ×2 (09:44→20:55)
[2018-11-24] MEDS: Atorvastatin Calcium 10 MG TAB PO SCH (09:51)
[2018-11-24 10:54] LABS: Anion Gap 13 mmol/L (10-20); BUN (Urea Nitrogen) 38 mg/dL (9.8-20.1); Calc. Creatinine Clearance 57 mL/min (70-130); Calcium 8.7 mg/dL (7.8-10.44); Carbon Dioxide 32 mmol/L (23-31); Chloride 94 mmol/L (98-107); Estimated GFR-MDRD 35; Glucose 72 mg/dL (83-110); Potassium 3.8 mmol/L (3.5-5.1); Sodium 135 mmol/L (136-145)
--- NOTE | 2018-11-24 12:21 | PDOC.PN ---
- Subjective Encounter Start Date: 11/24/18 Encounter Start Time: 11:35 Ms. Vigil was seen today in follow-up of CHF exacerbation. She is sitting in a chair. She does not have any new complaints. - Objective MAR Reviewed: Yes Vital Signs & Weight: Vital Signs (12 hours) Temp Pulse Resp BP Pulse Ox 11/24/18 08:00 97.6 F 90 31 H 107/53 L 97 11/24/18 04:15 97.5 F L 70 23 H 151/67 H 99 Weight Weight 285 lb 11.2 oz I&O: 11/23/18 11/24/18 11/25/18 06:59 06:59 06:59 Intake Total 960 1663.8 Output Total 1300 1700 Balance -340 -36.2 Result Diagrams: 11/16/18 07:02 11/24/18 07:49 Phys Exam - Physical Examination HEENT: PERRLA Cardiovascular: RRR, no significant murmur, no rub Gastrointestinal: soft, non-tender, no distention, positive bowel sounds Musculoskeletal: pulses present, edema present + bilateral lower extremity edema 2+ pitting edema Dx/Plan (1) Acute on chronic diastolic (congestive) heart failure Code(s): I50.33 - ACUTE ON CHRONIC DIASTOLIC (CONGESTIVE) HEART FAILURE Status : Acute Comment: Minimal clinical improvement despite IV Lasix, Zaroxolyn 2.5mg daily, accurate daily weight and I/O's, initiated on Dobutamine gtt for inotropic and renal perfusion support, continue current infusion and monitor fluid balance (2) Constipation Code(s): K59.00 - CONSTIPATION, UNSPECIFIED Status: Acute (3) Nausea Code(s): R11.0 - NAUSEA Status: Acute (4) Severe mitral regurgitation Code(s): I34.0 - NONRHEUMATIC MITRAL (VALVE) INSUFFICIENCY Status: Chronic Comment: May need to consider surgical intervention for volume mgmt (5) Physical deconditioning Code(s): R53.81 - OTHER MALAISE Status: Chronic Comment: Likely will benefit from SNF/swing bed before transitioning home (6) Atrial fibrillation Code(s): I48.91 - UNSPECIFIED ATRIAL FIBRILLATION Status: Chronic (7) Chronic anticoagulation Code(s): 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 new baseline, improved with inotropic support - Plan * Acute on chronic diastolic heart failure- continue Dobutamine drip. Lasix has been changed to p.o. * Acute on chronic kidney failure- improved * Atrial Fibrillation- her heart rate has been stable- and INR is therapeutic .
--- NOTE | 2018-11-24 17:32 | PDOC.CTH ---
Cardiology Progress Note - Subjective She is doing better. She continues to diurese. - Objective Vital Signs Temp Pulse Resp BP BP BP Pulse Ox 11/24/18 16:00 97.5 F L 83 18 126/58 L 97 11/24/18 12:00 97.8 F 73 18 123/67 96 11/24/18 09:17 136/56 L 124/55 L 11/24/18 08:00 97.6 F 90 31 H 107/53 L 97 Weight 285 lb 11.2 oz 11/23/18 11/24/18 11/25/18 06:59 06:59 06:59 Intake Total 960 1663.8 Output Total 1300 1700 Balance -340 -36.2 - Physical Examination General/Neuro: alert & oriented x3, NAD Neck: no JVD present Lungs: CTA, unlabored respirations Heart: RRR Abdomen: NT/ND Extremities: + edema B (2+) - Telemetry Telemetry Rhythm: NSR - Labs Result Diagrams: 11/16/18 07:02 11/24/18 07:49 Troponin/CKMB Troponin I 0.014 ng/mL (< 0.028) 11/14/18 04:46 - Assessment/Plan 1. Acute on chronic diastolic heart failure. 2. Restrictive pattern 3. Severe TR, Severe MR 4. Paroxysmal afib 5. KALI on CKD, cardiorenal most likely, improving. PLAN: - Continue dobutamine drip, will start to wean tomorrow. - Continue to monitor renal function. May be at her baseline creatinine. - May need mitral valve repair/replacement in the future. - Increase PT as tolerated. - Continue IV lasix.
[2018-11-24] MEDS: Warfarin Sodium 5 MG TAB PO SCH (17:50)
[2018-11-25 07:07] LABS: INR-International Normal Ratio 1.9
[2018-11-25 07:09] LABS: Anion Gap 11 mmol/L (10-20); BUN (Urea Nitrogen) 36 mg/dL (9.8-20.1); Calc. Creatinine Clearance 61 mL/min (70-130); Calcium 8.4 mg/dL (7.8-10.44); Carbon Dioxide 32 mmol/L (23-31); Chloride 95 mmol/L (98-107); Estimated GFR-MDRD 38; Glucose 73 mg/dL (83-110); Sodium 134 mmol/L (136-145)
[2018-11-25] MEDS: FLUoxetine HCl 20 MG CAP PO SCH (10:27)
[2018-11-25] MEDS: Atorvastatin Calcium 10 MG TAB PO SCH (10:28)
[2018-11-25] MEDS: Famotidine 20 MG TAB PO SCH (10:28)
[2018-11-25] MEDS: Furosemide 80 MG TAB PO SCH (10:28)
[2018-11-25] MEDS: Flecainide 50 MG TAB PO SCH ×2 (10:28→20:33)
[2018-11-25] MEDS: Metolazone 2.5 MG TAB PO SCH (10:28)
[2018-11-25] MEDS: Potassium Chloride 20 MEQ TAB PO SCH ×2 (10:29→20:32)
--- NOTE | 2018-11-25 12:18 | PDOC.PN ---
- Subjective Encounter Start Date: 11/25/18 Encounter Start Time: 12:16 Ms. Vigil was seen today in follow-up ofCHF exacerbation. She does not have any complaints. - Objective MAR Reviewed: Yes Vital Signs & Weight: Vital Signs (12 hours) Temp Pulse Resp BP Pulse Ox 11/25/18 07:35 97.8 F 71 20 98/57 L 98 11/25/18 04:00 97.8 F 66 16 160/63 H 98 Weight Weight 287 lb I&O: 11/24/18 11/25/18 11/26/18 06:59 06:59 06:59 Intake Total 1663.8 2161 Output Total 1700 2425 Balance -36.2 -264 Result Diagrams: 11/16/18 07:02 11/25/18 06:49 Phys Exam - Physical Examination HEENT: PERRLA Respiratory: no wheezing, no rales, no rhonchi, clear to auscultation bilateral Cardiovascular: RRR 2/6 systolic murmur Gastrointestinal: soft, non-tender, no distention, positive bowel sounds Musculoskeletal: pulses present, edema present 2+ pitting edema bilaterally Dx/Plan (1) Acute on chronic diastolic (congestive) heart failure Code(s): I50.33 - ACUTE ON CHRONIC DIASTOLIC (CONGESTIVE) HEART FAILURE Status : Acute Comment: Minimal clinical improvement despite IV Lasix, Zaroxolyn 2.5mg daily, accurate daily weight and I/O's, initiated on Dobutamine gtt for inotropic and renal perfusion support, continue current infusion and monitor fluid balance (2) Constipation Code(s): K59.00 - CONSTIPATION, UNSPECIFIED Status: Acute (3) Nausea Code(s): R11.0 - NAUSEA Status: Acute (4) Severe mitral regurgitation Code(s): I34.0 - NONRHEUMATIC MITRAL (VALVE) INSUFFICIENCY Status: Chronic Comment: May need to consider surgical intervention for volume mgmt (5) Physical deconditioning Code(s): R53.81 - OTHER MALAISE Status: Chronic Comment: Likely will benefit from SNF/swing bed before transitioning home (6) Atrial fibrillation Code(s): I48.91 - UNSPECIFIED ATRIAL FIBRILLATION Status: Chronic (7) Chronic anticoagulation Code(s): 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 new baseline, improved with inotropic support - Plan * Acute on chronic diastolic heart failure- she is improving with Dobutamine. Plan is to begin weaning it today * Acute on chronic kidney injury- improving * Severe Mitral regurgitation- refer for Valve surgery in [place] after discharge- she plans to follow-up with Dr. Rushing locally * Severe deconditioning- continue PT/OT- * AFIB on chronic anticoagulation- INR was 1.9 today- continue to monitor closely .
[2018-11-25] MEDS: Lorazepam 0.5 MG TAB PO PRN (14:40)
--- NOTE | 2018-11-25 15:52 | PDOC.CTH ---
Cardiology Progress Note - Subjective No new issues. - Objective Vital Signs Temp Pulse Pulse Pulse Resp BP BP 11/25/18 11:24 78 74 110/53 L 133/62 11/25/18 08:00 11/25/18 07:35 97.8 F 71 20 11/25/18 04:00 97.8 F 66 16 BP Pulse Ox 11/25/18 11:24 11/25/18 08:00 98 11/25/18 07:35 98/57 L 98 11/25/18 04:00 160/63 H 98 Weight 287 lb 11/24/18 11/25/18 11/26/18 06:59 06:59 06:59 Intake Total 1663.8 2161 Output Total 1700 2425 Balance -36.2 -264 - Physical Examination General/Neuro: alert & oriented x3, NAD Neck: no JVD present Lungs: unlabored respirations Heart: RRR Abdomen: NT/ND Extremities: + edema B (2+) - Telemetry Telemetry Rhythm: NSR - Labs Result Diagrams: 11/16/18 07:02 11/25/18 06:49 Troponin/CKMB Troponin I 0.014 ng/mL (< 0.028) 11/14/18 04:46 - Assessment/Plan 1. Acute on chronic diastolic heart failure. 2. Restrictive pattern 3. Severe TR, Severe MR 4. Paroxysmal afib 5. KALI on CKD, cardiorenal most likely, improving. PLAN: - Stop dobutamine drip today. - Will need mitral valve repair/replacement in the future but currently she is too weak to undergo any procedures. - Increase PT as tolerated. - Lasix to 40 mg PO BID. - Placement, likely she will need SNF with PT. - May discharge in next 24 to 48 hrs if she remains stable.
[2018-11-25] MEDS: Warfarin Sodium 5 MG TAB PO SCH (17:48)
[2018-11-25] MEDS: Senokot S 8.6-50 MG TAB PO SCH (20:32)
[2018-11-26 06:16] LABS: INR-International Normal Ratio 1.8; Prothrombin Time 21.2 SEC (12.0-14.7)
[2018-11-26 06:23] LABS: Anion Gap 14 mmol/L (10-20); BUN (Urea Nitrogen) 38 mg/dL (9.8-20.1); Calc. Creatinine Clearance 52 mL/min (70-130); Calcium 8.5 mg/dL (7.8-10.44); Carbon Dioxide 28 mmol/L (23-31); Chloride 96 mmol/L (98-107); Estimated GFR-MDRD 31; Glucose 91 mg/dL (83-110); Potassium 5.6 mmol/L (3.5-5.1); Sodium 132 mmol/L (136-145)
[2018-11-26] MEDS: Atorvastatin Calcium 10 MG TAB PO SCH (10:17)
[2018-11-26] MEDS: Flecainide 50 MG TAB PO SCH ×2 (10:17→21:55)
[2018-11-26] MEDS: Famotidine 20 MG TAB PO SCH (10:18)
[2018-11-26] MEDS: FLUoxetine HCl 20 MG CAP PO SCH (10:18)
[2018-11-26] MEDS: Senokot S 8.6-50 MG TAB PO SCH ×2 (10:19→21:56)
[2018-11-26] MEDS: Potassium Chloride 20 MEQ TAB PO SCH ×2 (10:19→22:01)
[2018-11-26] MEDS: Furosemide 40 MG TAB PO SCH ×2 (10:22→15:00)
[2018-11-26] MEDS: Ondansetron PF 4 MG/2 ML Vial SLOW IVP PRN ×2 (11:35→17:24)
[2018-11-26 11:48] LABS: Anion Gap 16 mmol/L (10-20); BUN (Urea Nitrogen) 40 mg/dL (9.8-20.1); Calc. Creatinine Clearance 46 mL/min (70-130); Calcium 8.6 mg/dL (7.8-10.44); Carbon Dioxide 26 mmol/L (23-31); Chloride 96 mmol/L (98-107); Estimated GFR-MDRD 27; Glucose 100 mg/dL (83-110); Potassium 5.5 mmol/L (3.5-5.1); Sodium 132 mmol/L (136-145)
--- NOTE | 2018-11-26 16:14 | PDOC.PN ---
- Subjective Encounter Start Date: 11/26/18 Encounter Start Time: 07:40 Pt seen for followup re: diastolic CHF exacerbation. Has episodes of hypotension. Denies chest pain, fevers or chills. Reports generalized weakness. - Objective Vital Signs & Weight: Vital Signs (12 hours) Temp Pulse Pulse Pulse Resp Resp Resp 11/26/18 15:00 97.5 F L 64 20 11/26/18 11:01 76 73 18 18 11/26/18 10:20 63 11/26/18 08:00 11/26/18 07:20 98.6 F 63 16 BP BP BP Pulse Ox Pulse Ox 11/26/18 15:00 73/46 L 98 11/26/18 11:01 98/62 132/74 97 11/26/18 10:20 115/53 L 11/26/18 08:00 115/57 L 98 11/26/18 07:20 74/52 L 97 Weight Weight 285 lb 14.4 oz I&O: 11/25/18 11/26/18 11/27/18 06:59 06:59 06:59 Intake Total 2161 1654 Output Total 2425 1200 Balance -264 454 Result Diagrams: 11/16/18 07:02 11/26/18 11:08 Additional Labs: Accuchecks 11/26/18 11:04 POC Glucose 104 Phys Exam - Physical Examination Morbid obesity HEENT: moist MMs Neck: supple Bao crackles Cardiovascular: RRR Gastrointestinal: soft Musculoskeletal: edema present Neurological: moves all 4 limbs Psychiatric: normal affect Dx/Plan (1) Acute on chronic diastolic (congestive) heart failure Code(s): I50.33 - ACUTE ON CHRONIC DIASTOLIC (CONGESTIVE) HEART FAILURE Status : Acute Comment: Pt off of dobutamine drip. Receiving furosemide. May need to be started on dobutamine drip if hypotension continues. NYHA Class 3, ACC/AHA Class C. (2) Acute on chronic kidney failure Code(s): N17.9 - ACUTE KIDNEY FAILURE, UNSPECIFIED; N18.9 - CHRONIC KIDNEY DISEASE, UNSPECIFIED Status: Acute Comment: creatinine 2.13 today, liliana cardiorenal syndrome given #1, avoid nephrotoxic meds and limit contrast exposure (3) Physical deconditioning Code(s): R53.81 - OTHER MALAISE Status: Chronic Comment: Likely will benefit from SNF/swing bed (4) CAD (coronary artery disease) Code(s): I25.10 - ATHSCL HEART DISEASE OF [place] CORONARY ARTERY W/O ANG PCTRS Status: Chronic Comment: stable (5) Dyslipidemia Code(s): E78.5 - HYPERLIPIDEMIA, UNSPECIFIED Status: Chronic Comment: continue statin (6) Morbid obesity with BMI of 45.0-49.9, adult Code(s): E66.01 - MORBID (SEVERE) OBESITY DUE TO EXCESS CALORIES; Z68.42 - BODY MASS INDEX (BMI) 45.0-49.9, ADULT Status: Chronic - Plan * . Review of Systems - Review of Systems Constitutional: weakness. negative: fever, chills, sweats, malaise Respiratory: SOB with Excertion. negative: Cough, Shortness of Breath, Pleuritic Pain, Wheezing Cardiovascular: edema. negative: chest pain, palpitations, orthopnea, paroxysmal nocturnal dyspnea, light headedness - Medications/Allergies Allergies/Adverse Reactions: Allergies Allergy/AdvReac Type Severity Reaction Status Date / Time HARJINDER Inhibitors Allergy swelling Verified 10/23/18 20:15 aspirin Allergy "messed Verified 10/23/18 20:15 with my acid reflux" ciprofloxacin Allergy "made me Verified 10/23/18 20:15 itch" metoprolol [From Lopressor] Allergy Verified 10/23/18 20:15 Penicillins Allergy "i break Verified 10/23/18 20:15 out" Medications: Current Medications Acetaminophen (Tylenol) 650 mg PO Q4H PRN PRN Reason: Headache/Fever or Pain Last Admin: 11/22/18 12:49 Dose: 650 mg Atorvastatin Calcium (Lipitor) 10 mg PO DAILY [facility] Last Admin: 11/26/18 10:17 Dose: 10 mg Bisacodyl (Dulcolax) [address] DAILYPRN PRN PRN Reason: Constipation Last Admin: 11/22/18 17:56 Dose: 10 mg Famotidine (Pepcid) 20 mg PO DAILY [facility] Last Admin: 11/26/18 10:18 Dose: 20 mg Flecainide Acetate (Tambocor) 100 mg PO BID [facility] Last Admin: 11/26/18 10:17 Dose: 100 mg Fluoxetine HCl (Prozac) 20 mg PO QAM [facility] Last Admin: 11/26/18 10:18 Dose: 20 mg Furosemide (Lasix) 40 mg PO 0900,1400 [facility] Last Admin: 11/26/18 15:00 Dose: Not Given Hydrocortisone/Pramoxine (Proctofoam Hc) 1 gm TOP TIDPRN PRN PRN Reason: Hemorrhoids Lorazepam (Ativan) 0.5 mg PO Q8HR PRN PRN Reason: Anxiety/Agitation Last Admin: 11/25/18 14:40 Dose: 0.5 mg Magnesium Hydroxide (Milk Of Magnesium) 30 ml PO DAILYPRN PRN PRN Reason: Constipation Last Admin: 11/21/18 11:45 Dose: 30 ml Miscellaneous Medication (Pharmacy To Dose) 0 each PO .WARFARIN PRN PRN Reason: PHARMACY TO DOSE Ondansetron HCl (Zofran) 4 mg SLOW IVP Q6H PRN PRN Reason: Nausea/Vomiting Last Admin: 11/22/18 12:51 Dose: 4 mg Potassium Chloride (K-Dur) 40 meq PO BID [facility] Last Admin: 11/26/18 10:19 Dose: Not Given Promethazine HCl (Phenergan 6.25 Mg/5ml Syrup) 6.25 mg PO Q6H PRN PRN Reason: Nausea/Vomiting Last Admin: 11/23/18 00:23 Dose: 6.25 mg Senna/Docusate Sodium (Senokot S) 1 tab PO BID [facility] Last Admin: 11/26/18 10:19 Dose: Not Given Sodium Chloride (Flush - Normal Saline) 10 ml IVF Q12HR [facility] Last Admin: 11/26/18 10:19 Dose: 10 ml Sodium Chloride (Flush - Normal Saline) 10 ml IVF PRN PRN PRN Reason: Saline Flush Last Admin: 11/24/18 09:45 Dose: 10 ml Warfarin Sodium (Coumadin) 5 mg PO 1700 [facility] Last Admin: 11/25/18 17:48 Dose: 5 mg
[2018-11-26] MEDS: Warfarin Sodium 5 MG TAB PO SCH (17:24)
--- NOTE | 2018-11-26 17:56 | PDOC.CTH ---
Cardiology Progress Note - Subjective She had several episodes of hypotension today. No chest pain. - Objective Vital Signs Temp Pulse Pulse Pulse Resp Resp Resp 11/26/18 15:00 97.5 F L 64 20 11/26/18 11:01 76 73 18 18 11/26/18 10:20 63 11/26/18 08:00 11/26/18 07:20 98.6 F 63 16 BP BP BP Pulse Ox Pulse Ox 11/26/18 15:00 73/46 L 98 11/26/18 11:01 98/62 132/74 97 11/26/18 10:20 115/53 L 11/26/18 08:00 115/57 L 98 11/26/18 07:20 74/52 L 97 Weight 285 lb 14.4 oz 11/25/18 11/26/18 11/27/18 06:59 06:59 06:59 Intake Total 2161 1654 Output Total 2425 1200 Balance -264 454 - Physical Examination General/Neuro: alert & oriented x3, NAD Neck: no JVD present Lungs: CTA, unlabored respirations Heart: RRR Abdomen: NT/ND Extremities: other: (no edema.) - Telemetry Telemetry Rhythm: AV paced. No VT. - Labs Result Diagrams: 11/16/18 07:02 11/26/18 11:08 Troponin/CKMB Troponin I 0.014 ng/mL (< 0.028) 11/14/18 04:46 - Assessment/Plan 1. Acute on chronic diastolic heart failure. 2. Restrictive pattern 3. Severe TR, Severe MR 4. Paroxysmal afib 5. KALI on CKD, cardiorenal most likely, improving. PLAN: - Will get IV fluids back as she may be volume depleted as her creatinine is higher now. - Hold Lasix. - If she does not respond will need pressors/innotropes. - Will repeat echo make sure nothing has changed. - Would keep close ey on posisble infectious source making her hypotensive, nothing obvious at this time. - Interrogation of PPM showed no arrhythmias, no VT, no SVT or afib/flutter.
--- NOTE | 2018-11-26 21:25 | EKG ---
Test Reason : CODE GREEN Blood Pressure : / mmHG Vent. Rate : 064 BPM Atrial Rate : 046 BPM P-R Int : 000 ms QRS Dur : 178 ms QT Int : 594 ms P-R-T Axes : 000 261 024 degrees QTc Int : 612 ms Demand pacemaker; interpretation is based on intrinsic rhythm Wide QRS rhythm with occasional Premature ventricular complexes and Fusion complexes Right bundle branch block Abnormal ECG When compared with ECG of 13-NOV-2018 22:23, Wide QRS rhythm has replaced Electronic ventricular pacemaker Confirmed by EVER MOTA, SEfe ([id number]) on 11/26/2018 9:24:50 PM Referred By: JEREMY Confirmed By:DR. Laine CURTIS MD
[2018-11-27] MEDS: Ondansetron PF 4 MG/2 ML Vial SLOW IVP PRN (02:39)
[2018-11-27 07:33] LABS: Anion Gap 15 mmol/L (10-20); BUN (Urea Nitrogen) 49 mg/dL (9.8-20.1); Calc. Creatinine Clearance 33 mL/min (70-130); Calcium 8.5 mg/dL (7.8-10.44); Carbon Dioxide 27 mmol/L (23-31); Chloride 93 mmol/L (98-107); Estimated GFR-MDRD 19; Glucose 92 mg/dL (83-110); Potassium 5.1 mmol/L (3.5-5.1); Sodium 130 mmol/L (136-145)
[2018-11-27] MEDS: Flecainide 50 MG TAB PO SCH ×2 (08:34→21:23)
[2018-11-27] MEDS: Famotidine 20 MG TAB PO SCH (08:34)
[2018-11-27] MEDS: Atorvastatin Calcium 10 MG TAB PO SCH (08:34)
[2018-11-27] MEDS: FLUoxetine HCl 20 MG CAP PO SCH (08:34)
[2018-11-27] MEDS: Senokot S 8.6-50 MG TAB PO SCH ×2 (08:34→21:23)
--- NOTE | 2018-11-27 13:23 | PDOC.PN ---
- Subjective Encounter Start Date: 11/27/18 Encounter Start Time: 13:20 Follow up diastolic CHF and severe MR/TR. Patient notes dizziness with sitting up. BP 80s-90s, labile. AWA unchanged. Lasix stopped 4/2. Occasional nausea, which has been present in intervals throughout hospital stay. Renal function worsened. Patient generally tired. Reports breathing ok "as long as I don't have to do anything." - Objective Vital Signs & Weight: Vital Signs (12 hours) Temp Pulse Resp BP Pulse Ox 11/27/18 12:28 97.3 F L 62 18 89/50 L 97 11/27/18 08:00 97.9 F 61 18 99/54 L 99 11/27/18 03:00 98.1 F 66 18 126/61 97 Weight Weight 285 lb 14.4 oz I&O: 11/26/18 11/27/18 11/28/18 06:59 06:59 06:59 Intake Total 1654 1180 330 Output Total 1200 0 Balance 454 1180 330 Result Diagrams: 11/16/18 07:02 11/27/18 06:31 Phys Exam - Physical Examination Frail elderly female, speaking in short sentences HEENT: PERRLA, moist MMs Neck: supple, full ROM Decreased bs at bases Cardiovascular: RRR Gastrointestinal: soft 2 plus edema bilaterally Neurological: moves all 4 limbs Psychiatric: normal affect, A&O x 3 Skin: no rash Dx/Plan (1) Hyponatremia Code(s): E87.1 - HYPO-OSMOLALITY AND HYPONATREMIA Status: Acute Comment: Re- consult renal, spoke with Dr. Mcdonough covering for Dr. Mcmullen (2) Acute on chronic diastolic (congestive) heart failure Code(s): I50.33 - ACUTE ON CHRONIC DIASTOLIC (CONGESTIVE) HEART FAILURE Status : Acute Comment: Previously on dobutamine drip. Furosemide stopped 4/2. May need to be restarted on dobutamine drip, call placed to cardiology to discuss. NYHA Class 3, ACC/AHA Class C. (3) Nausea Code(s): R11.0 - NAUSEA Status: Acute Comment: Intermittent/mild (4) Severe mitral regurgitation Code(s): I34.0 - NONRHEUMATIC MITRAL (VALVE) INSUFFICIENCY Status: Chronic Comment: May need to consider surgical intervention for volume mgmt (5) Severe tricuspid valve regurgitation Code(s): I07.1 - RHEUMATIC TRICUSPID INSUFFICIENCY Status: Chronic Comment: Likely significant contribution to current clinical situation (6) Paroxysmal atrial fibrillation Code(s): I48.0 - PAROXYSMAL ATRIAL FIBRILLATION Status: Acute Comment: Therapeutic on coumadin. Per Dr. Rushing's review of PPM 4/2 no arrhythmias, VT , SVT or afib/a flutter - Plan * Renal - interval worsening renal function. Off diuretic for [address] Mcdonough[address] Hyponatriemia may also reflect intravascular volume depletion. Consider additional fluids, defer to renal in this regard. * Cards - ?dobutamine infusion, follow up repeat echo/cardiology recs. Labile blood pressure continues. Tenuous fluid status due to valvular heart disease. * Send CBC, last one was several days ago. Considering other etiologies of hypotension (infection/blood loss, etc). Notably, no fever/cough. If WBC up, send UA via I/O cath. * Patient high risk.
[2018-11-27 13:47] LABS: #Basophils 0.2 thou/uL (0.0-0.2); #Eosinphils 0.1 thou/uL (0.0-0.7); #Lymphocytes 1.1 thou/uL (1.20-3.40); #Monocytes 0.8 thou/uL (0.11-0.59); #Neutrophils 4.1 thou/uL (1.40-6.50); %Basophils 2.4 % (0.0-1.0); %Eosinophils 1.2 % (0.0-10.0); %Monocytes 12.7 % (0.0-10.0); %Neutrophils 65.6 % (42.0-75.0); Hemoglobin 10.9 g/dL (12.0-16.0); Mean Corpuscular HGB CONC 30.7 g/dL (32.0-36.0); Mean Corpuscular Hemoglobin 25.1 pg (27.0-31.0); Mean Corpuscular Volume 81.8 fL (78.0-98.0); Mean Platelet Volume 10.3 fL (7.4-10.4); Platelet Count 169 thou/uL (130-400); Red Blood Cell (RBC) Count 4.33 mill/uL (4.20-5.40); White Blood Cell (WBC) Count 6.2 thou/uL (4.8-10.8)
[2018-11-27] MEDS ORDERED: Sodium Chloride 0.9% 500 ML IV SCH (15:30)
--- NOTE | 2018-11-27 16:10 | PRG ---
DATE OF SERVICE: SUBJECTIVE: The patient was seen and examined at bedside. Nephrology was pre-consulted for acute kidney injury. The patient was having elevated creatinine over the last few days, started on IV fluids yesterday and Lasix stopped, but no improvement. Nephrology is consulted. The patient is feeling very weak and tired. Her blood pressure is very low. She was hypotensive after PT. OBJECTIVE: GENERAL: This is an female looking lethargic. VITAL SIGNS: Temperature 97.9, pulse , respiratory rate 18, blood pressure 89/50. HEENT: Atraumatic, normocephalic. NECK: Supple. CVS: S1 and S2 heard. RESPIRATORY: Clear. GI: Abdomen is soft. MUSCULOSKELETAL: 3+ edema. DERMATOLOGIC: No skin rash. NEUROLOGIC: Very lethargic. LABORATORY DATA: Hemoglobin is 10.9. Potassium is 5.1, BUN is 49, creatinine is 2.9. ASSESSMENT AND PLAN: 1. Acute kidney injury on chronic kidney disease stage 4 with worsening creatinine, most likely cardiorenal syndrome. I had a discussion with Dr. Rushing and plan is to start back on inotropes, dobutamine and monitor renal function. Prognosis is very guarded. 2. Severe tricuspid regurgitation and mitral valve regurgitation. 3. Edema with fluid overload and hypotension. 4. Hypotension. 5. Hyponatremia. 6. Cardiorenal syndrome as above. Prognosis is guarded. Plan is to start back on dobutamine and could consider Lasix drip once blood pressure is stable. We will also consider albumin if she can tolerate it. Prognosis is guarded. Need long-term clarification of goal at this point as this patient is still dependent on inotropes. We will defer that to Cardiology. Avoid nephrotoxins. Medication list reviewed and monitored. Hyperkalemia. Potassium supplements stopped and monitored. Renally dose all medications. We will follow. Long-term prognosis is very poor. Job ID: [id number]
[2018-11-27] MEDS: Warfarin Sodium 5 MG TAB PO SCH (16:46)
[2018-11-27] MEDS: DOBUTamine 500 mg/250 ml 500 MG in Premix Bag 1 BAG IVPB SCH (16:57)
--- NOTE | 2018-11-27 18:24 | PDOC.CTH ---
Cardiology Progress Note - Subjective She had a low BP earlier today so I started her on Dobutamine again. Her creatinine continues to rise and is not making urine. - Objective Vital Signs Temp Pulse Pulse Resp BP BP Pulse Ox 11/27/18 16:44 61 85/49 L 11/27/18 15:30 82/50 L 11/27/18 15:05 97.5 F L 62 18 70/50 L 95 11/27/18 15:00 62 80/62 L 11/27/18 12:28 97.3 F L 62 18 89/50 L 97 11/27/18 08:00 97.9 F 61 18 99/54 L 99 Pulse Ox 11/27/18 16:44 11/27/18 15:30 11/27/18 15:05 11/27/18 15:00 99 11/27/18 12:28 11/27/18 08:00 Weight 285 lb 14.4 oz 11/26/18 11/27/18 11/28/18 06:59 06:59 06:59 Intake Total 1654 1180 330 Output Total 1200 0 Balance 454 1180 330 - Physical Examination General/Neuro: alert & oriented x3, NAD Neck: no JVD present Lungs: CTA, unlabored respirations Heart: RRR Abdomen: NT/ND Extremities: + edema B (3+) - Telemetry Telemetry Rhythm: NSR - Labs Result Diagrams: 11/27/18 13:37 11/27/18 06:31 Troponin/CKMB Troponin I 0.014 ng/mL (< 0.028) 11/14/18 04:46 - Assessment/Plan 1. Acute on chronic diastolic heart failure. 2. Restrictive pattern 3. Severe TR, Severe MR 4. Paroxysmal afib 5. KALI on CKD 6. Hypotension. PLAN: - Did not respond to IV fluids. LE have worse swelling. - Will re start dobutamine at 5 - Repeat echo pending. - Interrogation of PPM showed no arrhythmias, no VT, no SVT or afib/flutter.
[2018-11-27] MEDS: Lorazepam 0.5 MG TAB PO PRN (21:30)
[2018-11-28] MEDS: DOBUTamine 500 mg/250 ml 500 MG in Premix Bag 1 BAG IVPB SCH ×2 (06:20→19:05)
[2018-11-28] MEDS: Ondansetron PF 4 MG/2 ML Vial SLOW IVP PRN ×2 (08:01→13:29)
[2018-11-28] MEDS: Senokot S 8.6-50 MG TAB PO SCH ×2 (09:54→22:04)
[2018-11-28] MEDS: Atorvastatin Calcium 10 MG TAB PO SCH (09:54)
[2018-11-28] MEDS: Flecainide 50 MG TAB PO SCH ×2 (09:54→22:03)
[2018-11-28] MEDS: Famotidine 20 MG TAB PO SCH (09:54)
[2018-11-28] MEDS: FLUoxetine HCl 20 MG CAP PO SCH (09:54)
[2018-11-28 10:23] LABS: INR-International Normal Ratio 2.6; Prothrombin Time 27.4 SEC (12.0-14.7)
[2018-11-28 10:40] LABS: Anion Gap 17 mmol/L (10-20); BUN (Urea Nitrogen) 58 mg/dL (9.8-20.1); Calc. Creatinine Clearance 25 mL/min (70-130); Calcium 8.5 mg/dL (7.8-10.44); Carbon Dioxide 22 mmol/L (23-31); Chloride 93 mmol/L (98-107); Estimated GFR-MDRD 14; Glucose 91 mg/dL (83-110); Potassium 5.1 mmol/L (3.5-5.1); Sodium 127 mmol/L (136-145)
[2018-11-28 10:48] LABS: Anisocytosis SLIGHT = 6-15 cells (100X) (0-5/hpf); Band 1 % (5-11); Elliptocytes SLIGHT = 2-5 cells (100X) (0-1/hpf); Hypochromia SLIGHT = 6-15 cells (100X) (0-5/hpf); Large Platelets SLIGHT; Lymphocytes 3 % (21-51); MDiff Complete? YES; Mean Corpuscular HGB CONC 29.5 g/dL (32.0-36.0); Mean Corpuscular Hemoglobin 24.5 pg (27.0-31.0); Mean Corpuscular Volume 83.2 fL (78.0-98.0); Monocytes 1 % (0-10); Neutrophil 95 % (42-75); Platelet Count 193 thou/uL (130-400); Platelet Morphology Comment Appears Adequate; Polychromasia SLIGHT = 2-3 cells (100X) (0-2/hpf); RBC Distribution Width 16.1 % (11.5-14.5); Red Blood Cell (RBC) Count 4.48 mill/uL (4.20-5.40); Tear Drops SLIGHT = 2-5 cells (100X) (0-1/hpf); White Blood Cell (WBC) Count 6.4 thou/uL (4.8-10.8)
--- NOTE | 2018-11-28 11:07 | PRG ---
DATE OF SERVICE: 11/28/2018 SUBJECTIVE: Patient was seen and examined at bedside and overnight events noted. Patient denies any shortness of breath or chest pain or palpitation. No history of nausea or vomiting or diarrhea or fever or chills or cramps. OBJECTIVE: GENERAL: This is a well-built female, in no apparent distress. VITAL SIGNS: Temperature 98.5. Heart rate 62. Respiratory rate 18. Blood pressure 101/58. HEENT: Atraumatic, normocephalic. Oral mucosa is moist NECK: Supple. CARDIOVASCULAR: S1, S2 heard. Rate and rhythm regular. RESPIRATORY: Clear to auscultation. GASTROINTESTINAL: Abdomen is soft. MUSCULOSKELETAL: No tenderness. No edema. DERMATOLOGIC: No skin rash. NEUROLOGIC: Alert and awake and oriented X3. No focal neurologic deficits. Moving all the extremities. PSYCHIATRIC: Mood and affect normal. LABORATORY DATA: Potassium is 5.1, BUN is 58, creatinine is 3.7. ASSESSMENT AND PLAN: 1. Acute kidney injury on chronic kidney disease, stage 4, with worsening renal function. No improvement with dobutamine. Urine output improving. We will continue to watch. No acute indication for dialysis. We will follow. Prognosis is guarded. 2. Hyponatremia. Limit fluid intake. 3. Metabolic acidosis. 4. Azotemia. Plan to continue dobutamine and avoid nephrotoxins. We will follow. Prognosis is guarded. Follow with Cardiology. Job ID: [id number]
--- NOTE | 2018-11-28 12:09 | PDOC.PN ---
- Subjective Encounter Start Date: 11/28/18 Encounter Start Time: 12:07 Patient seen and examined, states when she goes from her bed to her bedside commode back to bed she nearly passes out and is very exhausted. States she otherwise is essentially bedbound as she gets tired with minimal movement. No other issues overnight, seen and examined in the room, all questions answered. - Objective Vital Signs & Weight: Vital Signs (12 hours) Temp Pulse Resp BP Pulse Ox 11/28/18 04:00 98.5 F 63 18 101/58 L 98 Weight Admit Weight 275 lb Weight 273 lb 6.4 oz I&O: 11/27/18 11/28/18 11/29/18 06:59 06:59 06:59 Intake Total 1180 1830 Output Total 0 550 Balance 1180 1280 Result Diagrams: 11/28/18 10:06 11/28/18 10:06 Phys Exam - Physical Examination Constitutional: NAD obese HEENT: PERRLA, moist MMs, sclera anicteric Neck: no nodes, no JVD, supple Respiratory: no wheezing, no rales, no rhonchi Cardiovascular: RRR, no rub systolic ejection murmur Gastrointestinal: soft, non-tender, no distention Musculoskeletal: pulses present, edema present (trace) Dx/Plan (1) Acute on chronic diastolic (congestive) heart failure Code(s): I50.33 - ACUTE ON CHRONIC DIASTOLIC (CONGESTIVE) HEART FAILURE Status : Acute Comment: Previously on dobutamine drip. Furosemide stopped 11/26. May need to be restarted on dobutamine drip, call placed to cardiology to discuss. NYHA Class 3, ACC/AHA Class C. (2) Acute on chronic kidney failure Code(s): N17.9 - ACUTE KIDNEY FAILURE, UNSPECIFIED; N18.9 - CHRONIC KIDNEY DISEASE, UNSPECIFIED Status: Acute Comment: creatinine 2.13 today, likley cardiorenal syndrome given #1, avoid nephrotoxic meds and limit contrast exposure (3) Hyponatremia Code(s): E87.1 - HYPO-OSMOLALITY AND HYPONATREMIA Status: Acute Comment: Re- consult renal, spoke with Dr. Mcdonough covering for Dr. Mcmullen (4) Paroxysmal atrial fibrillation Code(s): I48.0 - PAROXYSMAL ATRIAL FIBRILLATION Status: Acute Comment: Therapeutic on coumadin. Per Dr. Rushing's review of PPM 4/2 no arrhythmias, VT , SVT or afib/a flutter (5) Morbid obesity with BMI of 45.0-49.9, adult Code(s): E66.01 - MORBID (SEVERE) OBESITY DUE TO EXCESS CALORIES; Z68.42 - BODY MASS INDEX (BMI) 45.0-49.9, ADULT Status: Chronic (6) Physical deconditioning Code(s): R53.81 - OTHER MALAISE Status: Chronic Comment: Likely will benefit from SNF/swing bed (7) Severe mitral regurgitation Code(s): I34.0 - NONRHEUMATIC MITRAL (VALVE) INSUFFICIENCY Status: Chronic Comment: May need to consider surgical intervention for volume mgmt (8) CAD (coronary artery disease) Code(s): I25.10 - ATHSCL HEART DISEASE OF [place] CORONARY ARTERY W/O ANG PCTRS Status: Chronic Comment: stable - Plan * I think the overall prognosis for this patient is very poor. She herself states that in the past 14 days she's been here she has not felt improvement, infact she states she feels worse today than she did when she first came in * she's having low Na levels now likley due to hypotension and elevation in ADH. She's having cardio renal syndrome which likely explains her KALI, diuretics will help remove free water and help raise Na, however, given low BP will likely fluid restrict her for her low Na levels * patient is on dobutamine drip for now, will also start midodrine 5mg TID to be held if SBP > 140mmHg * lengthy discussion held with the patient and her family, will consult palliative care services for now as if her numbers continue to worsen the family would be open to this modality of care * cardio and renal also following. * overall prognosis appears to be very poor * case and plan d/w patient and daughter(via phone Ms. Herrmann [phone]) at length, they understand and agree with this plan.
[2018-11-28] MEDS ORDERED: Midodrine HCl 5 MG TAB PO SCH (15:00)
[2018-11-28] MEDS: Warfarin Sodium 5 MG TAB PO SCH (16:17)
[2018-11-28] MEDS: Furosemide 40 MG/4 ML VIAL SLOW IVP SCH (16:18)
--- NOTE | 2018-11-28 16:41 | PDOC.CTH ---
Cardiology Progress Note - Subjective She has accumulated more fluid overnight, Her legs are more swollen and she is unable to lay flat without coughing. - Objective Vital Signs Temp Pulse Resp BP Pulse Ox 11/28/18 15:06 97.6 F 63 16 93/60 96 11/28/18 12:00 97.8 F 67 16 93/56 L 97 11/28/18 08:00 97.8 F 60 16 101/60 95 Admit Weight 275 lb Weight 273 lb 6.4 oz 11/27/18 11/28/18 11/29/18 06:59 06:59 06:59 Intake Total 1180 1830 Output Total 0 550 Balance 1180 1280 - Physical Examination General/Neuro: alert & oriented x3, NAD Neck: no JVD present Lungs: unlabored respirations Heart: RRR Abdomen: NT/ND Extremities: + edema B (3+) - Telemetry Telemetry Rhythm: NSR - Labs Result Diagrams: 11/28/18 10:06 11/28/18 10:06 Troponin/CKMB Troponin I 0.014 ng/mL (< 0.028) 11/14/18 04:46 - Assessment/Plan 1. Acute on chronic diastolic heart failure. 2. Restrictive pattern 3. Severe TR, Severe MR 4. Paroxysmal afib 5. KALI on CKD 6. Hypotension. PLAN: - Continue dobutamine at 5. If she does not respond will switch to milrinone. - I spoke with Dr. Miller in [place] to see if he thought we had any choices. She has a failing kidney, she was unable to come off innotropic support and her LV is getting worse. Her mitral valve is severely leaking and her tricuspid valve is severely leaking. She ois also severely deconditioned and unble to do any ADL's without aid. She would certainly not survive any surgery for her valves. We agreed that we are running out of options in her case. Hopefully the renal function will begin to improve and will be able to diurese some more. She is severely ill and would not be unexpected.
[2018-11-29] MEDS: DOBUTamine 500 mg/250 ml 500 MG in Premix Bag 1 BAG IVPB SCH ×2 (02:04→08:46)
[2018-11-29] MEDS: Ondansetron PF 4 MG/2 ML Vial SLOW IVP PRN (04:04)
[2018-11-29 05:32] LABS: #Basophils 0.1 thou/uL (0.0-0.2); #Eosinphils 0.1 thou/uL (0.0-0.7); #Lymphocytes 1.2 thou/uL (1.20-3.40); #Monocytes 0.7 thou/uL (0.11-0.59); #Neutrophils 4.1 thou/uL (1.40-6.50); %Basophils 1.3 % (0.0-1.0); %Eosinophils 1.2 % (0.0-10.0); %Lymphocytes 18.8 % (21.0-51.0); %Monocytes 12.1 % (0.0-10.0); %Neutrophils 66.7 % (42.0-75.0); Hemoglobin 10.2 g/dL (12.0-16.0); Mean Corpuscular HGB CONC 31.8 g/dL (32.0-36.0); Mean Corpuscular Hemoglobin 25.7 pg (27.0-31.0); Mean Platelet Volume 10.7 fL (7.4-10.4); Platelet Count 169 thou/uL (130-400); Prothrombin Time 30.8 SEC (12.0-14.7); RBC Distribution Width 15.9 % (11.5-14.5); Red Blood Cell (RBC) Count 3.97 mill/uL (4.20-5.40); White Blood Cell (WBC) Count 6.1 thou/uL (4.8-10.8)
[2018-11-29 05:45] LABS: Anion Gap 14 mmol/L (10-20); BUN (Urea Nitrogen) 70 mg/dL (9.8-20.1); Calc. Creatinine Clearance 23 mL/min (70-130); Calcium 8.5 mg/dL (7.8-10.44); Carbon Dioxide 28 mmol/L (23-31); Chloride 89 mmol/L (98-107); Estimated GFR-MDRD 13; Glucose 87 mg/dL (83-110); Potassium 5.2 mmol/L (3.5-5.1); Sodium 126 mmol/L (136-145)
[2018-11-29] MEDS: Furosemide 40 MG/4 ML VIAL SLOW IVP SCH ×2 (06:09→13:47)
[2018-11-29] MEDS: Promethazine HCl 6.25 MG/5 ML Syrup PO PRN (07:58)
[2018-11-29] MEDS: Senokot S 8.6-50 MG TAB PO SCH ×2 (08:47→20:06)
[2018-11-29] MEDS: Atorvastatin Calcium 10 MG TAB PO SCH (08:47)
[2018-11-29] MEDS: Flecainide 50 MG TAB PO SCH (08:47)
[2018-11-29] MEDS: Famotidine 20 MG TAB PO SCH (08:47)
[2018-11-29] MEDS: FLUoxetine HCl 20 MG CAP PO SCH (08:47)
--- NOTE | 2018-11-29 13:42 | PDOC.PN ---
- Subjective Encounter Start Date: 11/29/18 Encounter Start Time: 13:39 Patient seen and examined, in the ICU, family at bedside, all questions answered. - Objective Vital Signs & Weight: Vital Signs (12 hours) Temp Pulse Pulse BP BP Pulse Ox Pulse Ox 11/29/18 12:00 97.9 F 11/29/18 09:42 72 72 127/62 124/69 100 11/29/18 08:00 99 11/29/18 07:00 97.9 F 11/29/18 04:00 97.5 F L Pulse Ox 11/29/18 12:00 11/29/18 09:42 100 11/29/18 08:00 11/29/18 07:00 11/29/18 04:00 Weight Admit Weight 275 lb Weight 274 lb 6 oz Most Recent Monitor Data Heart Rate from ECG 70 NIBP 122/69 NIBP BP-Mean 86 Respiration from ECG 21 SpO2 99 I&O: 11/28/18 11/29/18 11/30/18 06:59 06:59 06:59 Intake Total 1830 1177 Output Total 550 381 200 Balance 1280 796 -200 Result Diagrams: 11/29/18 04:46 11/29/18 04:46 Phys Exam - Physical Examination Constitutional: NAD sleepy HEENT: PERRLA, moist MMs, sclera anicteric Neck: no nodes, no JVD, supple Respiratory: no wheezing, no rales, no rhonchi Cardiovascular: RRR, no rub systolic ejection murmur Gastrointestinal: soft, non-tender, no distention Musculoskeletal: pulses present, edema present (3+) Dx/Plan (1) Acute on chronic diastolic (congestive) heart failure Code(s): I50.33 - ACUTE ON CHRONIC DIASTOLIC (CONGESTIVE) HEART FAILURE Status : Acute Comment: Previously on dobutamine drip. Furosemide stopped /. May need to be restarted on dobutamine drip, call placed to cardiology to discuss. NYHA Class 3, ACC/AHA Class C. (2) Acute on chronic kidney failure Code(s): N17.9 - ACUTE KIDNEY FAILURE, UNSPECIFIED; N18.9 - CHRONIC KIDNEY DISEASE, UNSPECIFIED Status: Acute Comment: creatinine 2.13 today, liliana cardiorenal syndrome given #1, avoid nephrotoxic meds and limit contrast exposure (3) Hyponatremia Code(s): E87.1 - HYPO-OSMOLALITY AND HYPONATREMIA Status: Acute Comment: Re- consult renal, spoke with Dr. Mcdonough covering for Dr. Mcmullen (4) Paroxysmal atrial fibrillation Code(s): I48.0 - PAROXYSMAL ATRIAL FIBRILLATION Status: Acute Comment: Therapeutic on coumadin. Per Dr. Rushing's review of PPM 4/2 no arrhythmias, VT , SVT or afib/a flutter (5) Morbid obesity with BMI of 45.0-49.9, adult Code(s): E66.01 - MORBID (SEVERE) OBESITY DUE TO EXCESS CALORIES; Z68.42 - BODY MASS INDEX (BMI) 45.0-49.9, ADULT Status: Chronic (6) Physical deconditioning Code(s): R53.81 - OTHER MALAISE Status: Chronic Comment: Likely will benefit from SNF/swing bed (7) Severe mitral regurgitation Code(s): I34.0 - NONRHEUMATIC MITRAL (VALVE) INSUFFICIENCY Status: Chronic Comment: May need to consider surgical intervention for volume mgmt (8) CAD (coronary artery disease) Code(s): I25.10 - ATHSCL HEART DISEASE OF [place] CORONARY ARTERY W/O ANG PCTRS Status: Chronic Comment: stable - Plan * overall severely poor prognosis, lengthy discussion held with daughter, she's agreeable to discuss hospice options. Code status also discussed, she states she 'd like to discuss with her brothers and sisters before making a final decision. * The patient's overall prognosis remains very poor, she is not a surgical candidate due to poor heart function and her condition continues to worsen on a daily basis * for now will keep patient in ICU, if family agrees to do DNR will transfer to medical floor, will also place hospice consultation per daughter's request * no other changes in plan of care for now. * case and plan d/w patient's daughter at length, she understood and agreed with this plan
[2018-11-29] MEDS: Furosemide 100 MG/10 ML VIAL SLOW IVP SCH (14:15)
--- NOTE | 2018-11-29 15:58 | PRG ---
DATE OF SERVICE: 11/29/2018 SUBJECTIVE: Patient was seen and examined at bedside and overnight events noted. Patient denies any shortness of breath or chest pain or palpitation. No history of nausea or vomiting or diarrhea or fever or chills or cramps. OBJECTIVE: GENERAL: This is a well-built female, in no apparent distress. VITAL SIGNS: Temperature 97.9. Pulse 61. Respiratory rate 18. Blood pressure 69/48. HEENT: Atraumatic, normocephalic. Oral mucosa is moist NECK: Supple. CARDIOVASCULAR: S1, S2 heard. Rate and rhythm regular. RESPIRATORY: Clear to auscultation. GASTROINTESTINAL: Abdomen is soft. MUSCULOSKELETAL: No tenderness. No edema. DERMATOLOGIC: No skin rash. NEUROLOGIC: Alert and awake and oriented X3. No focal neurologic deficits. Moving all the extremities. PSYCHIATRIC: Mood and affect normal. LABORATORY DATA: Potassium 5.2, BUN 70, creatinine is 4.1. ASSESSMENT AND PLAN: 1. Acute kidney injury on chronic kidney disease, stage 4, with worsening creatinine, with worsening blood pressure. Prognosis is very poor. Agree with comfort measures. 2. Hyponatremia. 3. Metabolic acidosis. 4. Azotemia. The patient is running out of options, and both her kidneys and heart are failing, and continue comfort measures. Job ID: [id number]
--- NOTE | 2018-11-29 16:26 | PDOC.CTH ---
Cardiology Progress Note - Subjective She has not felt a significant difference in her breathing, still has to sit up to breath better and not cough. - Objective Vital Signs Temp Pulse Pulse BP BP Pulse Ox Pulse Ox 11/29/18 12:00 97.9 F 11/29/18 09:42 72 72 127/62 124/69 100 11/29/18 08:00 99 11/29/18 07:00 97.9 F Pulse Ox 11/29/18 12:00 11/29/18 09:42 100 11/29/18 08:00 11/29/18 07:00 Admit Weight 275 lb Weight 274 lb 6 oz 11/28/18 11/29/18 11/30/18 06:59 06:59 06:59 Intake Total 1830 1177 305 Output Total 550 381 375 Balance 1280 796 -70 - Physical Examination General/Neuro: alert & oriented x3 Neck: no JVD present Lungs: unlabored respirations Heart: RRR Abdomen: NT/ND Extremities: + edema B (3+) - Telemetry Telemetry Rhythm: NSR - Labs Result Diagrams: 11/29/18 04:46 11/29/18 04:46 Troponin/CKMB Troponin I 0.014 ng/mL (< 0.028) 11/14/18 04:46 - Assessment/Plan 1. Acute on chronic diastolic heart failure. 2. Restrictive pattern 3. Severe TR, Severe MR 4. Paroxysmal afib 5. KALI on CKD 6. Hyperkalemia 7. Hypotension. 8. Severely deconditioned. PLAN: - Dobutamine was increased to 10 last night and there has been no significant improvement in her diuresis. Will switch to milrinone today. - I spoke with Ms. Vigil about more invasive options like placing a balloon pump or an impella, she is not interested in any invasive interventions and only wants medications. - Her kidneys are worsening and her potassium is starting to come up, she is not diuresing and gets hypotensive every time we give her lasix. We are running out of options. - Will stop flecainide as her LV function is reduced now and is no longer indicated. - She has failed to come off innotropes and is actually getting worse. - Would consider starting Levophed if her BP is an issue while attempting to diurese. - I will increase dose of lasix and may try Bumex if diuresis not adequate with lasix. - She would not be a good candidate for dialysis if her kidneys stop working and would not likely survive. - She is severely ill and would not be unexpected. - Family was updated yesterday and again today I spoke with one of her daughters about her. They are going to talk and decide about code status later today. - Dr. Bueno will follow over the weekend.
[2018-11-29] MEDS: Warfarin Sodium 5 MG TAB PO SCH (16:48)
--- NOTE | 2018-11-29 21:35 | CON ---
DATE OF CONSULTATION: 11/29/2018 HISTORY OF PRESENT ILLNESS: Ms. Dutta is a 78-year-old female. She is in the Critical Care Unit for pulmonary consultation. Apparently, she has severe mitral regurgitation and renal insufficiency. There are no surgical alternatives for her. She is currently on dobutamine, receiving diuretics. She has been in the hospital since November 14. PAST MEDICAL HISTORY: Remarkable for, 1. Atrial fibrillation. 2. Hypertension. 3. History of pacer. 4. Diastolic dysfunction. 5. History of coronary artery disease. 6. History of lipid disorder. 7. History of hypertension. 8. History of degenerative arthritis. 9. History of reflux disease. 10. History of asthma. 11. History of breast cancer with right mastectomy. 12. History of bilateral knee replacements. 13. Status post hysterectomy. SOCIAL HISTORY: She is a nonsmoker and nondrinker. Does not use drugs. She apparently lives with her grandson. ALLERGIES: SHE REPORTS INTOLERANCE TO HARJINDER INHIBITORS, ASPIRIN, CIPRO, METOPROLOL, PENICILLIN. FAMILY HISTORY: Negative for lung disease in early age. MEDICATIONS: She is on 10 mcg of dobutamine. REVIEW OF SYSTEMS: Ten point review of systems completed, remarkable only for shortness of breath, otherwise negative. PHYSICAL EXAMINATION: GENERAL: Ms. Dutta is a 78-year-old female. VITALS: Heart rate is 60, blood pressure is 82/45, respiratory rates in the teens, oximetry is 98%. HEENT: Pupils are equal. Sclerae anicteric. NECK: Supple. LUNGS: Distant. HEART: Regular rhythm. There is a grade 2/6 systolic murmur. ABDOMEN: Soft. EXTREMITIES: With edema. LABORATORY DATA: White count 6.1, hemoglobin 10.2, platelets 169. Sodium 126, potassium 5.2, chloride 89, bicarb 28, BUN 70, creatinine 4.1. Creatinine was 1.89 when she came in. IMPRESSION: Severe mitral regurgitation with progressive renal insufficiency. Her decline in renal function is likely related to her valvular disease. She is paced. Her dobutamine probably now is not adding a whole lot to her management by my guess. She has moderate aortic insufficiency and severe mitral regurgitation with pulmonary hypertension, likely as a result of her severe mitral regurgitation. If there are no surgical options, this will probably be a steady downhill course. Her code status should definitely be addressed. TIME SPENT: This is a 50-minute consult, with greater than 50% of the time spent on the unit coordinating care. Job ID: [id number] MTDD
[2018-11-30] MEDS: Furosemide 100 MG/10 ML VIAL SLOW IVP SCH ×2 (05:12→14:30)
[2018-11-30] MEDS: Milk Of Magnesia 30 ML UDCUP PO PRN (05:12)
[2018-11-30 05:23] LABS: INR-International Normal Ratio 3.3; Prothrombin Time 33.2 SEC (12.0-14.7)
--- NOTE | 2018-11-30 08:41 | PDOC.CTH ---
Cardiology Progress Note - Subjective Doing better on milrinone. Pt has had a stable BP and has diuresed. Pt also in SR. - Objective Vital Signs Temp Pulse Ox 11/30/18 08:00 98 11/30/18 07:00 97.9 F 11/30/18 04:00 98.1 F 11/30/18 00:00 97.9 F Admit Weight 275 lb Weight 281 lb 1.43 oz 11/29/18 11/30/18 12/01/18 06:59 06:59 06:59 Intake Total 1177 663.2 50 Output Total 381 1985 85 Balance 796 -1321.8 -35 - Physical Examination General/Neuro: NAD Neck: no JVD present Lungs: unlabored respirations Heart: PMI normal, RRR Abdomen: NT/ND, soft Extremities: + femoral B - Labs Result Diagrams: 11/29/18 04:46 11/29/18 04:46 Troponin/CKMB Troponin I 0.014 ng/mL (< 0.028) 11/14/18 04:46 - Assessment/Plan 1. Acute on chronic diastolic heart failure. 2. Restrictive pattern 3. Severe TR, Severe MR 4. Paroxysmal afib 5. KALI on CKD 6. Hyperkalemia 7. Hypotension. 8. Severely deconditioned. Pt has diuresed on milroinone. Option limited Pt not felt to be a good candidate per Dr. Rushing for transfer to [facility] for intervention Medical therapy recommended. Excellent response to milrinone. Continue for now
[2018-11-30] MEDS: Atorvastatin Calcium 10 MG TAB PO SCH (09:12)
[2018-11-30] MEDS: FLUoxetine HCl 20 MG CAP PO SCH (09:12)
[2018-11-30] MEDS: Senokot S 8.6-50 MG TAB PO SCH ×2 (09:12→21:31)
[2018-11-30] MEDS: Famotidine 20 MG TAB PO SCH (09:12)
--- NOTE | 2018-11-30 11:03 | PRG ---
DATE OF SERVICE: 11/30/2018 SUBJECTIVE: Patient was seen and examined at bedside and overnight events noted. Patient denies any shortness of breath or chest pain or palpitation. No history of nausea or vomiting or diarrhea or fever or chills or cramps. OBJECTIVE: GENERAL: This is a well-built female, in no acute distress. VITAL SIGNS: Temperature 97.9. Heart rate 73. Respiratory rate 18. Blood pressure 145/60. HEENT: Atraumatic, normocephalic. Oral mucosa is moist NECK: Supple. CARDIOVASCULAR: S1, S2 heard. Rate and rhythm regular. RESPIRATORY: Clear to auscultation. GASTROINTESTINAL: Abdomen is soft. MUSCULOSKELETAL: No tenderness. No edema. DERMATOLOGIC: No skin rash. NEUROLOGIC: Alert and awake and oriented x3. No focal neurologic deficits. Moving all the extremities. PSYCHIATRIC: Mood and affect normal. LABORATORY DATA: Not done today. ASSESSMENT AND PLAN: 1. Acute kidney injury on chronic kidney disease, stage 4. Repeat labs. 2. Hyponatremia. Limit fluid intake. 3. Cardiorenal syndrome. Making better urine with milrinone. 4. Azotemia. 5. Metabolic acidosis, most likely from poor circulation. Monitor labs. Continue milrinone. Follow with Cardiology. Prognosis, guarded. Continue discussion with family about goals of care. Job ID: [id number]
--- NOTE | 2018-11-30 12:42 | PDOC.PN ---
- Subjective Encounter Start Date: 11/30/18 Encounter Start Time: 12:39 Patient seen and examined, no family at bedside, all questions answered. - Objective Vital Signs & Weight: Vital Signs (12 hours) Temp Pulse Ox 11/30/18 11:00 98.0 F 11/30/18 08:00 98 11/30/18 07:00 97.9 F 11/30/18 04:00 98.1 F Weight Admit Weight 275 lb Weight 281 lb 1.43 oz Most Recent Monitor Data Heart Rate from ECG 74 NIBP 123/46 NIBP BP-Mean 71 Respiration from ECG 19 SpO2 96 I&O: 11/29/18 11/30/18 12/01/18 06:59 06:59 06:59 Intake Total 1177 663.2 400 Output Total 381 1985 570 Balance 796 -1321.8 -170 Result Diagrams: 11/29/18 04:46 11/29/18 04:46 Phys Exam - Physical Examination Constitutional: NAD HEENT: PERRLA, moist MMs, sclera anicteric Neck: no nodes, no JVD, supple Respiratory: no wheezing, no rales, no rhonchi Cardiovascular: no rub rhythm is NSR to paced to NSR with PACs systolic murmur Gastrointestinal: soft, non-tender, no distention, positive bowel sounds Musculoskeletal: pulses present, edema present (3+) Dx/Plan (1) Acute on chronic diastolic (congestive) heart failure Code(s): I50.33 - ACUTE ON CHRONIC DIASTOLIC (CONGESTIVE) HEART FAILURE Status : Acute Comment: Previously on dobutamine drip. Furosemide stopped /. May need to be restarted on dobutamine drip, call placed to cardiology to discuss. NYHA Class 3, ACC/AHA Class C. (2) Acute on chronic kidney failure Code(s): N17.9 - ACUTE KIDNEY FAILURE, UNSPECIFIED; N18.9 - CHRONIC KIDNEY DISEASE, UNSPECIFIED Status: Acute Comment: creatinine 2.13 today, liliana cardiorenal syndrome given #1, avoid nephrotoxic meds and limit contrast exposure (3) Hyponatremia Code(s): E87.1 - HYPO-OSMOLALITY AND HYPONATREMIA Status: Acute Comment: Re- consult renal, spoke with Dr. Mcdonough covering for Dr. Mcmullen (4) Paroxysmal atrial fibrillation Code(s): I48.0 - PAROXYSMAL ATRIAL FIBRILLATION Status: Acute Comment: Therapeutic on coumadin. Per Dr. Rushing's review of PPM 4/2 no arrhythmias, VT , SVT or afib/a flutter (5) Morbid obesity with BMI of 45.0-49.9, adult Code(s): E66.01 - MORBID (SEVERE) OBESITY DUE TO EXCESS CALORIES; Z68.42 - BODY MASS INDEX (BMI) 45.0-49.9, ADULT Status: Chronic (6) Physical deconditioning Code(s): R53.81 - OTHER MALAISE Status: Chronic Comment: Likely will benefit from SNF/swing bed (7) Severe mitral regurgitation Code(s): I34.0 - NONRHEUMATIC MITRAL (VALVE) INSUFFICIENCY Status: Chronic Comment: May need to consider surgical intervention for volume mgmt (8) CAD (coronary artery disease) Code(s): I25.10 - ATHSCL HEART DISEASE OF [place] CORONARY ARTERY W/O ANG PCTRS Status: Chronic Comment: stable - Plan * No family at bedside, call placed to number on file with no one picking up * patient on milrinone, for now the patient is stable, her rhythm switches between paced to NSR with PACs to NSR * overall a very poor prognosis * hospice/pallative care teams following, hopefully will know if patient's family would like to go to hospice or not, this would be the best thing for this patient as she is not a surgical candidate nor a dialysis candidate * I have made multiple attempts to reach family but was unsucessful, will keep in ICU for now as she is not a DNR yet, this was discussed at length yesterday with the daughter, will await family decision * no changes at this point in time * case and plan d/w patient at length, she understood and agreed with this plan.
--- NOTE | 2018-11-30 12:53 | PRG ---
DATE OF SERVICE: 11/30/2018 SUBJECTIVE: Walker looks much more alert today. She is in no distress today. Her work of breathing has dropped considerably. OBJECTIVE: VITAL SIGNS: Blood pressure 123/46, heart rate is 74, respiratory rate is 19, oximetry is 96%. LUNGS: Clear. HEART: Regular rhythm. Grade 2/6 systolic murmur is heard. ABDOMEN: Soft. EXTREMITIES: Warm without edema. LABORATORY DATA: There is no new lab today. IMPRESSION: Severe mitral regurgitation with congestive heart failure, clinically improved. Intake and output surprisingly is negative 1321. Overall, she appears to be improving, but will remain in critical care unit for now. Job ID: [id number]
[2018-11-30] MEDS: Acetaminophen 325 MG TAB PO PRN (16:49)
[2018-11-30] MEDS: Lorazepam 0.5 MG TAB PO PRN (22:36)
[2018-12-01] MEDS: Furosemide 100 MG/10 ML VIAL SLOW IVP SCH ×2 (05:23→14:01)
[2018-12-01 05:50] LABS: INR-International Normal Ratio 2.9; Prothrombin Time 30.1 SEC (12.0-14.7)
[2018-12-01 06:03] LABS: Band 8 % (5-11); Eosinophils 1 % (0-10); Hemoglobin 8.8 g/dL (12.0-16.0); Lymphocytes 8 % (21-51); MDiff Complete? YES; Mean Corpuscular HGB CONC 32.6 g/dL (32.0-36.0); Mean Corpuscular Hemoglobin 25.7 pg (27.0-31.0); Mean Corpuscular Volume 78.7 fL (78.0-98.0); Mean Platelet Volume 10.6 fL (7.4-10.4); Monocytes 11 % (0-10); Neutrophil 72 % (42-75); Platelet Count 162 thou/uL (130-400); Platelet Morphology Comment Appears Adequate; RBC Distribution Width 16.2 % (11.5-14.5); RBC Morphology Normal; Red Blood Cell (RBC) Count 3.44 mill/uL (4.20-5.40); White Blood Cell (WBC) Count 5.1 thou/uL (4.8-10.8)
[2018-12-01 06:09] LABS: Anion Gap 14 mmol/L (10-20); BUN (Urea Nitrogen) 70 mg/dL (9.8-20.1); Calc. Creatinine Clearance 30 mL/min (70-130); Calcium 8.1 mg/dL (7.8-10.44); Carbon Dioxide 29 mmol/L (23-31); Chloride 90 mmol/L (98-107); Estimated GFR-MDRD 17; Glucose 81 mg/dL (83-110); Potassium 4.5 mmol/L (3.5-5.1); Sodium 128 mmol/L (136-145)
[2018-12-01] MEDS: Famotidine 20 MG TAB PO SCH (08:36)
[2018-12-01] MEDS: Senokot S 8.6-50 MG TAB PO SCH ×2 (08:37→20:32)
[2018-12-01] MEDS: FLUoxetine HCl 20 MG CAP PO SCH (08:37)
[2018-12-01] MEDS: Atorvastatin Calcium 10 MG TAB PO SCH (08:37)
--- NOTE | 2018-12-01 10:52 | PDOC.CTH ---
Cardiology Progress Note - Subjective Cotninues to improved. Pt continues with diuresis. Intermittent afib noted. - Objective Vital Signs Temp 12/01/18 08:00 98.3 F Admit Weight 275 lb Weight 296 lb 8.348 oz 11/30/18 12/01/18 12/02/18 06:59 06:59 06:59 Intake Total 663.2 1139.2 Output Total 1985 9725 550 Balance -1321.8 -925.8 -550 - Physical Examination General/Neuro: NAD Neck: no JVD present Lungs: CTA, unlabored respirations Heart: PMI normal, RRR Abdomen: NT/ND, soft Extremities: + femoral B - Labs Result Diagrams: 12/01/18 05:35 12/01/18 05:35 Troponin/CKMB Troponin I 0.014 ng/mL (< 0.028) 11/14/18 04:46 - Assessment/Plan 1. Acute on chronic diastolic heart failure. 2. Restrictive pattern 3. Severe TR, Severe MR 4. Paroxysmal afib 5. KALI on CKD 6. Hyperkalemia 7. Hypotension. 8. Severely deconditioned. Continue to diurese Weights do not correspond with I/O Continue milrinone INtermittent afib noted.
--- NOTE | 2018-12-01 11:33 | PDOC.PN ---
- Subjective Encounter Start Date: 12/01/18 Encounter Start Time: 11:31 Patient seen and examined, no family at bedside. - Objective Vital Signs & Weight: Vital Signs (12 hours) Temp Pulse Ox 12/01/18 08:00 98.3 F 98 Weight Admit Weight 275 lb Weight 296 lb 8.348 oz Most Recent Monitor Data Heart Rate from ECG 79 NIBP 88/51 NIBP BP-Mean 66 Respiration from ECG 20 SpO2 96 I&O: 11/30/18 12/01/18 12/02/18 06:59 06:59 06:59 Intake Total 663.2 1139.2 Output Total 1984 0029 585 Balance -1321.8 -925.8 -585 Result Diagrams: 12/01/18 05:35 12/01/18 05:35 Phys Exam - Physical Examination Constitutional: NAD HEENT: PERRLA, moist MMs, sclera anicteric Neck: no nodes, no JVD, supple Respiratory: no wheezing, no rales, no rhonchi Cardiovascular: RRR, no significant murmur, no rub Gastrointestinal: soft, non-tender, no distention Musculoskeletal: pulses present, edema present (3+) Dx/Plan (1) Acute on chronic diastolic (congestive) heart failure Code(s): I50.33 - ACUTE ON CHRONIC DIASTOLIC (CONGESTIVE) HEART FAILURE Status : Acute Comment: Previously on dobutamine drip. Furosemide stopped 11/26. May need to be restarted on dobutamine drip, call placed to cardiology to discuss. NYHA Class 3, ACC/AHA Class C. (2) Acute on chronic kidney failure Code(s): N17.9 - ACUTE KIDNEY FAILURE, UNSPECIFIED; N18.9 - CHRONIC KIDNEY DISEASE, UNSPECIFIED Status: Acute Comment: creatinine 2.13 today, likley cardiorenal syndrome given #1, avoid nephrotoxic meds and limit contrast exposure (3) Hyponatremia Code(s): E87.1 - HYPO-OSMOLALITY AND HYPONATREMIA Status: Acute Comment: Re- consult renal, spoke with Dr. Mcdonough covering for Dr. Mcmullen (4) Paroxysmal atrial fibrillation Code(s): I48.0 - PAROXYSMAL ATRIAL FIBRILLATION Status: Acute Comment: Therapeutic on coumadin. Per Dr. Rushing's review of PPM / no arrhythmias, VT , SVT or afib/a flutter (5) Morbid obesity with BMI of 45.0-49.9, adult Code(s): E66.01 - MORBID (SEVERE) OBESITY DUE TO EXCESS CALORIES; Z68.42 - BODY MASS INDEX (BMI) 45.0-49.9, ADULT Status: Chronic (6) Physical deconditioning Code(s): R53.81 - OTHER MALAISE Status: Chronic Comment: Likely will benefit from SNF/swing bed (7) Severe mitral regurgitation Code(s): I34.0 - NONRHEUMATIC MITRAL (VALVE) INSUFFICIENCY Status: Chronic Comment: May need to consider surgical intervention for volume mgmt (8) CAD (coronary artery disease) Code(s): I25.10 - ATHSCL HEART DISEASE OF [place] CORONARY ARTERY W/O ANG PCTRS Status: Chronic Comment: stable - Plan * awaiting family decision on DNR/DNI and hospice * cont current medical plan of care for now * nurse stated that the patient's son was here today, nurse asked to call me if any other family members came so that I may discuss code status and hospice care plans with them. My last discussion was 48hrs ago and I have been able to reach family since then, call placed again to Ms. Dawn Herrmann (hder daughter) at her cell [phone] with no answer. * overall prognosis remains poor
--- NOTE | 2018-12-01 11:44 | PRG ---
DATE OF SERVICE: 12/01/2018 SUBJECTIVE: Ms. Vigil says she is feeling better. She is still on Primacor. OBJECTIVE: VITAL SIGNS: She is afebrile. Heart rate is 102, respiratory rate is 18, oximetry is 100%. LUNGS: Clear. HEART: Regular rhythm. Of course 3/6 systolic murmur still heard. ABDOMEN: Soft and nontender. EXTREMITIES: Warm. NEURO: Nonfocal. LABORATORY DATA: White count 5.1, hemoglobin 8.8, platelets 162. Sodium 128, potassium 4.5, chloride 90, bicarb 29, BUN 70, creatinine 3.18, which is an improvement. Her creatinine on the 2nd was 2.13. IMPRESSION: 1. Congestive heart failure with severe mitral regurgitation, clinically improved. 2. Mild systolic cardiomyopathy, improved with Primacor. 3. Hyponatremia, likely volume and diuretic related. 4. Borderline hyperkalemia that is improved today. 5. Acute on chronic kidney disease, it is improved. Overall, she is stable, but her prognosis is still quite poor. She could move out of the Critical Care Unit. Her code status needs to be addressed. Job ID: [id number]
--- NOTE | 2018-12-01 11:55 | PRG ---
DATE OF SERVICE: 12/01/2018 SUBJECTIVE: Patient was seen and examined at bedside and overnight events noted. Patient denies any shortness of breath or chest pain or palpitation. No history of nausea or vomiting or diarrhea or fever or chills or cramps. OBJECTIVE: GENERAL: This is a well-built female, in no acute distress. VITAL SIGNS: Temperature 98.3. Heart rate 74. Respiratory rate 18. Blood pressure 95/53. HEENT: Atraumatic, normocephalic. Oral mucosa is moist. NECK: Supple. CARDIOVASCULAR: S1, S2 heard. Rate and rhythm regular. RESPIRATORY: Clear to auscultation. GASTROINTESTINAL: Abdomen is soft. MUSCULOSKELETAL: 1+ edema. DERMATOLOGIC: No skin rash. NEUROLOGIC: Alert and awake and oriented x3. No focal neurologic deficits. Moving all the extremities. PSYCHIATRIC: Mood and affect normal. LABORATORY DATA: Potasium is 4.5, BUN is 70, and creatinine is 3.1. ASSESSMENT AND PLAN: 1. Acute kidney injury on chronic kidney disease, stage 4 with slight improvement in renal function. 2. Cardiorenal syndrome, on milrinone. 3. Hyponatremia. 4. Azotemia. 5. Metabolic acidosis. Renal function is stable. Long-term prognosis is poor. Follow with Cardiology for long-term plans. Continue family discussion regarding for clarification of goals of care. Job ID: [id number]
[2018-12-01] MEDS: Milk Of Magnesia 30 ML UDCUP PO PRN (12:38)
[2018-12-01] MEDS ORDERED: Warfarin Sodium 5 MG TAB PO SCH (17:00)
[2018-12-02 04:40] LABS: #Basophils 0.1 thou/uL (0.0-0.2); #Eosinphils 0.1 thou/uL (0.0-0.7); #Lymphocytes 0.9 thou/uL (1.20-3.40); #Monocytes 0.8 thou/uL (0.11-0.59); #Neutrophils 3.5 thou/uL (1.40-6.50); %Basophils 1.3 % (0.0-1.0); %Lymphocytes 16.1 % (21.0-51.0); %Monocytes 14.9 % (0.0-10.0); %Neutrophils 65.7 % (42.0-75.0); Hemoglobin 8.9 g/dL (12.0-16.0); Mean Corpuscular Volume 80.6 fL (78.0-98.0); Mean Platelet Volume 9.9 fL (7.4-10.4); Platelet Count 190 thou/uL (130-400); RBC Distribution Width 16.1 % (11.5-14.5); Red Blood Cell (RBC) Count 3.56 mill/uL (4.20-5.40); White Blood Cell (WBC) Count 5.3 thou/uL (4.8-10.8)
[2018-12-02 04:42] LABS: Prothrombin Time 23.2 SEC (12.0-14.7)
[2018-12-02 04:54] LABS: Anion Gap 13 mmol/L (10-20); BUN (Urea Nitrogen) 70 mg/dL (9.8-20.1); Calc. Creatinine Clearance 37 mL/min (70-130); Calcium 8.2 mg/dL (7.8-10.44); Carbon Dioxide 30 mmol/L (23-31); Chloride 88 mmol/L (98-107); Estimated GFR-MDRD 20; Glucose 88 mg/dL (83-110); Potassium 3.6 mmol/L (3.5-5.1); Sodium 127 mmol/L (136-145)
[2018-12-02] MEDS: Furosemide 100 MG/10 ML VIAL SLOW IVP SCH ×2 (06:23→13:25)
[2018-12-02] MEDS: Famotidine 20 MG TAB PO SCH (08:05)
[2018-12-02] MEDS: FLUoxetine HCl 20 MG CAP PO SCH (08:05)
[2018-12-02] MEDS: Atorvastatin Calcium 10 MG TAB PO SCH (08:05)
[2018-12-02] MEDS: Senokot S 8.6-50 MG TAB PO SCH ×2 (08:05→20:08)
--- NOTE | 2018-12-02 11:26 | PRG ---
DATE OF SERVICE: 12/02/2018 SUBJECTIVE: Musa says she is feeling better. OBJECTIVE: GENERAL: She is in no distress. She is still on low-dose Primacor. VITAL SIGNS: Heart rate 60, blood pressure 106/54, respiratory rate is 20, oximetry is 98. LUNGS: Clear. HEART: Regular rate and rhythm. S1 and S2 are normal. Grade 2-3 out of 6 systolic murmur still heard. ABDOMEN: Soft and nontender. EXTREMITIES: Warm. LABORATORY DATA: White count 5.3, hemoglobin 8.9, platelets 190. Sodium 127, potassium 3.6, chloride 88, bicarb 30, BUN 70. Creatinine 2.76, down from 3.18. IMPRESSION: 1. Congestive heart failure secondary to valvular heart disease. 2. Acute on chronic renal dysfunction, improved? with the addition of Primacor. 3. Hyponatremia related to her heart failure. 4. Obesity and deconditioning. PLAN: I believe she is stable to go to telemetry unit if Cardiology agrees. Job ID: [id number]
--- NOTE | 2018-12-02 11:55 | PDOC.PN ---
- Subjective Encounter Start Date: 12/02/18 Encounter Start Time: 11:54 Patient seen and examined, no new issues. - Objective Vital Signs & Weight: Vital Signs (12 hours) Temp Pulse Ox 12/02/18 08:00 96 12/02/18 07:45 98.5 F 12/02/18 04:00 98.3 F 12/02/18 00:00 98.5 F Weight Admit Weight 275 lb Weight 301 lb 5.95 oz Most Recent Monitor Data Heart Rate from ECG 60 NIBP 106/54 NIBP BP-Mean 71 Respiration from ECG 20 SpO2 98 I&O: 12/01/18 12/02/18 12/03/18 06:59 06:59 06:59 Intake Total 1139.2 1750.6 Output Total 2065 1453 Balance -925.8 297.6 Result Diagrams: 12/02/18 04:00 12/02/18 04:00 Phys Exam - Physical Examination Constitutional: NAD HEENT: PERRLA, moist MMs, sclera anicteric Neck: no nodes, no JVD, supple Respiratory: no wheezing, no rales, no rhonchi Cardiovascular: RRR, no significant murmur, no rub Gastrointestinal: soft, non-tender, no distention Musculoskeletal: edema present (3+) Dx/Plan (1) Acute on chronic diastolic (congestive) heart failure Code(s): I50.33 - ACUTE ON CHRONIC DIASTOLIC (CONGESTIVE) HEART FAILURE Status : Acute Comment: Previously on dobutamine drip. Furosemide stopped 4/2. May need to be restarted on dobutamine drip, call placed to cardiology to discuss. NYHA Class 3, ACC/AHA Class C. (2) Acute on chronic kidney failure Code(s): N17.9 - ACUTE KIDNEY FAILURE, UNSPECIFIED; N18.9 - CHRONIC KIDNEY DISEASE, UNSPECIFIED Status: Acute Comment: creatinine 2.13 today, likley cardiorenal syndrome given #1, avoid nephrotoxic meds and limit contrast exposure (3) Hyponatremia Code(s): E87.1 - HYPO-OSMOLALITY AND HYPONATREMIA Status: Acute Comment: Re- consult renal, spoke with Dr. Mcdonough covering for Dr. Mcmullen (4) Paroxysmal atrial fibrillation Code(s): I48.0 - PAROXYSMAL ATRIAL FIBRILLATION Status: Acute Comment: Therapeutic on coumadin. Per Dr. Rushing's review of PPM 4/ no arrhythmias, VT , SVT or afib/a flutter (5) Morbid obesity with BMI of 45.0-49.9, adult Code(s): E66.01 - MORBID (SEVERE) OBESITY DUE TO EXCESS CALORIES; Z68.42 - BODY MASS INDEX (BMI) 45.0-49.9, ADULT Status: Chronic (6) Physical deconditioning Code(s): R53.81 - OTHER MALAISE Status: Chronic Comment: Likely will benefit from SNF/swing bed (7) Severe mitral regurgitation Code(s): I34.0 - NONRHEUMATIC MITRAL (VALVE) INSUFFICIENCY Status: Chronic Comment: May need to consider surgical intervention for volume mgmt (8) CAD (coronary artery disease) Code(s): I25.10 - ATHSCL HEART DISEASE OF [place] CORONARY ARTERY W/O ANG PCTRS Status: Chronic Comment: stable - Plan * no changes in plan of care * poor overall prognosis, remains on milrinone drip * awaiting family decision * hospice care would be the best course forward as she's not improving, not a candidate for surgery, not a candidate for dialysis and not a candidate for transplantation * transfer to telemetry * will await family decision.
[2018-12-02] MEDS: Milk Of Magnesia 30 ML UDCUP PO PRN (13:15)
--- NOTE | 2018-12-02 15:56 | PRG ---
DATE OF SERVICE: 12/02/2018 SUBJECTIVE: Patient was seen and examined at bedside and overnight events noted. Patient denies any shortness of breath or chest pain or palpitation. No history of nausea or vomiting or diarrhea or fever or chills or cramps. OBJECTIVE: GENERAL: This is a well-built female, in no apparent distress. VITAL SIGNS: Temperature 98.4. Pulse 60. Respiratory rate 22. Blood pressure 114/62. HEENT: Atraumatic, normocephalic. Oral mucosa is moist NECK: Supple. CARDIOVASCULAR: S1, S2 heard. Rate and rhythm regular. RESPIRATORY: Clear to auscultation. GASTROINTESTINAL: Abdomen is soft. MUSCULOSKELETAL: No tenderness. No edema. DERMATOLOGIC: No skin rash. NEUROLOGIC: Alert and awake and oriented X3. No focal neurologic deficits. Moving all the extremities. PSYCHIATRIC: Mood and affect normal. LABORATORY DATA: Potassium is 3.6, BUN is 70, creatinine is 2.7. ASSESSMENT AND PLAN: 1. Acute kidney injury on chronic kidney stage 4, stable. 2. Cardiorenal syndrome, better. 3. Hyponatremia. Limit fluid. 4. Azotemia. 5. Metabolic acidosis. Labs are getting better. Limit fluid intake and follow with Cardiology for further plans. Job ID: [id number]
[2018-12-02] MEDS ORDERED: Warfarin Sodium 5 MG TAB PO SCH (17:00)
[2018-12-02] MEDS ORDERED: Warfarin Sodium 2.5 MG TAB PO SCH (17:00)
--- NOTE | 2018-12-02 18:32 | PDOC.CTH ---
Cardiology Progress Note - Subjective She is slowly improving. No chest pain. SOB at baseline. - Objective Vital Signs Temp Pulse Ox 12/02/18 16:00 98.0 F 12/02/18 12:00 98.4 F 12/02/18 08:00 96 12/02/18 07:45 98.5 F Admit Weight 275 lb Weight 301 lb 5.95 oz 12/01/18 12/02/18 12/03/18 06:59 06:59 06:59 Intake Total 1139.2 1750.6 1266 Output Total 2065 1453 655 Balance -925.8 297.6 611 - Physical Examination General/Neuro: alert & oriented x3, NAD Neck: no JVD present Lungs: CTA, unlabored respirations Heart: RRR Abdomen: NT/ND Extremities: + edema B (2+, improved.) - Telemetry Telemetry Rhythm: A pced. - Labs Result Diagrams: 12/02/18 04:00 12/02/18 04:00 Troponin/CKMB Troponin I 0.014 ng/mL (< 0.028) 11/14/18 04:46 - Assessment/Plan 1. Acute on chronic diastolic heart failure. 2. Restrictive pattern 3. Severe TR, Severe MR 4. Paroxysmal afib 5. KALI on CKD 6. Hyperkalemia 7. Hypotension. 8. Severely deconditioned. PLAN: - She has diuresed much better with milrinone. - Continue for now. Will try to wean tomorrow. - Continue IV lasix. - Weight seems to be coming up but may be beacuse she has not had a BM in 8 days. - Creatinine continues to improve. - Will follow. Once off inotropes she may transfer to telemetry floor.
[2018-12-03] MEDS: Furosemide 100 MG/10 ML VIAL SLOW IVP SCH (05:54)
[2018-12-03 06:24] LABS: Anion Gap 11 mmol/L (10-20); BUN (Urea Nitrogen) 67 mg/dL (9.8-20.1); Calc. Creatinine Clearance 45 mL/min (70-130); Calcium 8.5 mg/dL (7.8-10.44); Carbon Dioxide 33 mmol/L (23-31); Chloride 89 mmol/L (98-107); Estimated GFR-MDRD 25; Glucose 81 mg/dL (83-110); Potassium 3.2 mmol/L (3.5-5.1); Sodium 130 mmol/L (136-145)
[2018-12-03 06:25] LABS: INR-International Normal Ratio 1.6; Prothrombin Time 18.7 SEC (12.0-14.7)
[2018-12-03 06:37] LABS: Band 1 % (5-11); Eosinophils 1 % (0-10); Hemoglobin 9.6 g/dL (12.0-16.0); Lymphocytes 14 % (21-51); MDiff Complete? YES; Mean Corpuscular HGB CONC 31.5 g/dL (32.0-36.0); Mean Corpuscular Hemoglobin 25.1 pg (27.0-31.0); Mean Corpuscular Volume 79.6 fL (78.0-98.0); Mean Platelet Volume 9.5 fL (7.4-10.4); Monocytes 11 % (0-10); Neutrophil 73 % (42-75); Platelet Count 206 thou/uL (130-400); Platelet Morphology Comment Appears Adequate; RBC Distribution Width 16.1 % (11.5-14.5); Red Blood Cell (RBC) Count 3.81 mill/uL (4.20-5.40); White Blood Cell (WBC) Count 5.1 thou/uL (4.8-10.8)
[2018-12-03] MEDS: Atorvastatin Calcium 10 MG TAB PO SCH (08:06)
[2018-12-03] MEDS: FLUoxetine HCl 20 MG CAP PO SCH (08:06)
[2018-12-03] MEDS: Famotidine 20 MG TAB PO SCH (08:06)
[2018-12-03] MEDS: Senokot S 8.6-50 MG TAB PO SCH ×3 (08:06→20:06)
[2018-12-03] MEDS ORDERED: Furosemide 100 MG/10 ML VIAL SLOW IVP SCH (09:09)
[2018-12-03] MEDS ORDERED: Magnesium Oxide 400 MG TAB PO PRN ×2 (09:24)
[2018-12-03] MEDS ORDERED: Potassium Phosphate 9 MMOL in Sodium Chloride 0.9% 100 ML IVPB PRN (09:24)
[2018-12-03] MEDS ORDERED: Potassium Phosphate 12 MMOL in Sodium Chloride 0.9% 250 ML 250 ML IV PRN (09:24)
[2018-12-03] MEDS ORDERED: PHOS-NAK 1 PKT PACK PO PRN ×2 (09:24)
[2018-12-03] MEDS ORDERED: Potassium Phosphate 15 MMOL in Sodium Chloride 0.9% 250 ML 250 ML IV PRN (09:24)
[2018-12-03] MEDS ORDERED: Potassium Chloride 20 MEQ TAB PO PRN (09:24)
[2018-12-03] MEDS ORDERED: Potassium Chloride 40 MEQ in Sodium Chloride 0.9% 250 ML 250 ML IVPB PRN (09:24)
[2018-12-03] MEDS ORDERED: Magnesium 2 GM/50 ML 2 GM in Premix Bag 1 BAG IVPB PRN (09:24)
[2018-12-03] MEDS ORDERED: CCU ELECTROLYTE REPLACEMENT PROTOCOL FS PRN (09:24)
[2018-12-03] MEDS ORDERED: Potassium Chloride 40 MEQ in Premix Bag 1 BAG IVPB PRN (09:24)
[2018-12-03] MEDS: Milk Of Magnesia 30 ML UDCUP PO PRN (12:15)
[2018-12-03] MEDS: Bisacodyl 10 MG SUPP PR PRN (12:16)
[2018-12-03] MEDS: Acetaminophen 325 MG TAB PO PRN (13:52)
[2018-12-03] MEDS: Furosemide 40 MG/4 ML VIAL SLOW IVP SCH (13:58)
[2018-12-03] MEDS ORDERED: Fleet Enema 133 ML BOT FS SCH (14:00)
[2018-12-03] MEDS ORDERED: Polyethylene Glycol 3350 17 GM Packet PO SCH (15:30)
--- NOTE | 2018-12-03 16:22 | PRG ---
DATE OF SERVICE: 12/03/2018 SUBJECTIVE: Estefania Vigil has no new complaints other than constipation. OBJECTIVE: VITAL SIGNS: She is 125/75, heart rate 64, respiratory rate is 25, oximetry is 97%. HEENT: Pupils are equal. NECK: Supple. LUNGS: Clear. HEART: Regular rhythm. Her murmurs are unchanged. ABDOMEN: Nontender, although she has significant abdominal girth. I could not elicit tenderness to deep palpation. It has been many days since she has had a bowel movement. LABORATORY DATA: White count is 5.1, hemoglobin 9.6, platelets 206. Sodium 130; potassium 3.2; chloride 89; bicarb 33; BUN 67; creatinine 2.29, 2.76 yesterday. Intake and output, positive 661. IMPRESSION: 1. Congestive heart failure with severe mitral regurgitation, improved with Primacor. Continuing to see improving renal function. 2. Constipation. There is nothing to suggest that she has ischemic bowel at this point in time. We will continue to follow the other physicians caring for her. Job ID: [id number]
[2018-12-03] MEDS ORDERED: Warfarin Sodium 5 MG TAB PO SCH (16:30)
[2018-12-03] MEDS: Warfarin Sodium 5 MG TAB PO SCH (17:56)
--- NOTE | 2018-12-03 18:22 | PRG ---
DATE OF SERVICE: 12/03/2018 SUBJECTIVE: Patient was seen and examined at bedside and overnight events noted. Patient denies any shortness of breath or chest pain or palpitation. No history of nausea or vomiting or diarrhea or fever or chills or cramps. OBJECTIVE: GENERAL: This is an elderly female, in no apparent distress. VITAL SIGNS: Temperature 97.9. Heart rate 60. Respiratory rate 22. Blood pressure 126/88. HEENT: Atraumatic, normocephalic. Oral mucosa is moist NECK: Supple. CARDIOVASCULAR: S1, S2 heard. Rate and rhythm regular. RESPIRATORY: Clear to auscultation. GASTROINTESTINAL: Abdomen is soft. MUSCULOSKELETAL: 1+ edema. DERMATOLOGIC: No skin rash. NEUROLOGIC: Alert and awake and oriented X3. No focal neurologic deficits. Moving all the extremities. PSYCHIATRIC: Mood and affect normal. LABORATORY DATA: Sodium is 130, potassium 3.2, BUN is 67, and creatinine is 2.2. ASSESSMENT AND PLAN: 1. Acute kidney injury on chronic kidney stage 4. Renal function is better. 2. Hypokalemia. Replace and monitor. 3. Hyponatremia. Limit fluid intake. 4. Metabolic alkalosis, most likely secondary to diuretics. Plan is already used diuretic dose. 5. Anemia of chronic disease. 6. Cardiorenal syndrome. Follow with Cardiology. We will reduce the Lasix dose and we will monitor. Job ID: [id number]
--- NOTE | 2018-12-03 19:51 | PDOC.CTH ---
Cardiology Progress Note - Subjective Doing better. Creatinine and sodium improving. Diuresing. - Objective Vital Signs Temp Pulse Pulse BP BP Pulse Ox 12/03/18 16:00 97.9 F 12/03/18 15:42 100 91 126/88 125/75 12/03/18 12:00 97.8 F 12/03/18 08:00 97.9 F 98 Admit Weight 275 lb Weight 299 lb 9.731 oz 12/02/18 12/03/18 12/04/18 06:59 06:59 06:59 Intake Total 1750.6 2036 815 Output Total 1453 1375 1255 Balance 297.6 661 -440 - Physical Examination General/Neuro: alert & oriented x3, NAD Neck: no JVD present Lungs: unlabored respirations Heart: RRR Abdomen: NT/ND Extremities: + edema B (3+) - Telemetry Telemetry Rhythm: NSR - Labs Result Diagrams: 12/03/18 05:30 12/03/18 05:30 Troponin/CKMB Troponin I 0.014 ng/mL (< 0.028) 11/14/18 04:46 - Assessment/Plan 1. Acute on chronic diastolic heart failure. 2. Restrictive pattern 3. Severe TR, Severe MR 4. Paroxysmal afib 5. KALI on CKD 6. Hyperkalemia 7. Hypotension. 8. Severely deconditioned. PLAN: - She has diuresed much better with milrinone, will stop today and see how she does. - Continue IV lasix at lower dose. - Creatinine continues to improve. - Will follow. Once off inotropes she may transfer to telemetry floor if creatinine continues to improve and diuresing. - Replace K.
--- NOTE | 2018-12-03 22:15 | PDOC.PN ---
- Subjective Encounter Start Date: 12/03/18 Encounter Start Time: 13:45 Patient seen and examined for CHF/KALI. Constipated. SOB improving. No new complaints. No overnight events - Objective MAR Reviewed: Yes Vital Signs & Weight: Vital Signs (12 hours) Temp Pulse Pulse BP BP Pulse Ox 12/03/18 20:00 97.7 F 99 12/03/18 16:00 97.9 F 12/03/18 15:42 100 91 126/88 125/75 12/03/18 12:00 97.8 F Weight Admit Weight 275 lb Weight 299 lb 9.731 oz Most Recent Monitor Data Heart Rate from ECG 60 NIBP 109/65 NIBP BP-Mean 79 Respiration from ECG 19 SpO2 98 I&O: 12/02/18 12/03/18 12/04/18 06:59 06:59 06:59 Intake Total 1750.6 2036 815 Output Total 1453 1375 1575 Balance 297.6 661 -760 Result Diagrams: 12/03/18 05:30 12/03/18 05:30 EKG Reviewed by me: Yes (Tele paced) Phys Exam - Physical Examination Constitutional: NAD Respiratory: no wheezing, no rhonchi Dec AE at bases Cardiovascular: RRR, no rub Gastrointestinal: soft, non-tender, positive bowel sounds Dx/Plan - Plan 1. Gen weakness - multifactorial 2. KALI/CKD 4 3. Acute on chronic diastolic HF exacerbation/Severe MR/TR 4. Morbid obesity BMI 48.4 5. Hyponatremia/Hypokalemia 6. HTN 7. Par Afib 8. CAD 9. Constipation PLAN: Cont diuresis Off Milrinone AM labs Fluid restriction Treat constipation Cont current meds as below Review of Systems - Review of Systems Respiratory: negative: Cough, Dry, Shortness of Breath, Hemoptysis, SOB with Excertion, Pleuritic Pain, Sputum, Wheezing Gastrointestinal: Constipation. negative: Nausea, Vomiting, Abdominal Pain, Diarrhea, Melena, Hematochezia, Other - Medications/Allergies Allergies/Adverse Reactions: Allergies Allergy/AdvReac Type Severity Reaction Status Date / Time HARJINDER Inhibitors Allergy swelling Verified 10/23/18 20:15 aspirin Allergy "messed Verified 10/23/18 20:15 with my acid reflux" ciprofloxacin Allergy "made me Verified 10/23/18 20:15 itch" metoprolol [From Lopressor] Allergy Verified 10/23/18 20:15 Penicillins Allergy "i break Verified 10/23/18 20:15 out" Medications: Current Medications Acetaminophen (Tylenol) 650 mg PO Q4H PRN PRN Reason: Headache/Fever or Pain Last Admin: 12/03/18 13:52 Dose: 650 mg Atorvastatin Calcium (Lipitor) 10 mg PO DAILY [facility] Last Admin: 12/03/18 08:06 Dose: 10 mg Bisacodyl (Dulcolax) 10 mg [place] DAILYPRN PRN PRN Reason: Constipation Last Admin: 12/03/18 12:16 Dose: 10 mg Famotidine (Pepcid) 20 mg PO DAILY [facility] Last Admin: 12/03/18 08:06 Dose: 20 mg Fluoxetine HCl (Prozac) 20 mg PO QAM [facility] Last Admin: 12/03/18 08:06 Dose: 20 mg Furosemide (Lasix) 40 mg SLOW IVP 0600,1400 [facility] Last Admin: 12/03/18 13:58 Dose: 40 mg Hydrocortisone/Pramoxine (Proctofoam Hc) 1 gm TOP TIDPRN PRN PRN Reason: Hemorrhoids Potassium Chloride 40 meq/ (Sodium Chloride) 270 mls @ 135 mls/hr IVPB ASDIR PRN PRN Reason: FOR SERUM K+ 2.5 - 3.5 Potassium Chloride 40 meq/ (Device) 100 mls @ 50 mls/hr IVPB ASDIR PRN PRN Reason: FOR SERUM K+ 2.5 - 3.5 Magnesium Sulfate 1 gm/ Sodium (Chloride) 102 mls @ 102 mls/hr IV PRN PRN PRN Reason: MAG LEVEL 1.4 - 2.0 Magnesium Sulfate 2 gm/ Device 50 mls @ 50 mls/hr IVPB ASDIR PRN PRN Reason: MAGNESIUM < 1.4 Potassium Phosphate 9 mmol/ (Sodium Chloride) 103 mls @ 25.75 mls/hr IVPB ASDIR PRN PRN Reason: Phosphate 1.0-1.8 Potassium Phosphate 12 mmol/ (Sodium Chloride) 254 mls @ 63.5 mls/hr IV ASDIR PRN PRN Reason: Serum phosphate 0.5-0.9 Potassium Phosphate 15 mmol/ (Sodium Chloride) 255 mls @ 63.75 mls/hr IV ASDIR PRN PRN Reason: Serum Phos < 0.5 Lorazepam (Ativan) 0.5 mg PO Q8HR PRN PRN Reason: Anxiety/Agitation Last Admin: 11/30/18 22:36 Dose: 0.5 mg Magnesium Hydroxide (Milk Of Magnesium) 30 ml PO DAILYPRN PRN PRN Reason: Constipation Last Admin: 12/03/18 12:15 Dose: 30 ml Magnesium Oxide (Magnesium Oxide) 400 mg PO BIDPRN PRN PRN Reason: FOR SERUM MAG 1.4 - 2.0 Magnesium Oxide (Magnesium Oxide) 800 mg PO PRN PRN PRN Reason: FOR SERUM MAG < 1.4 Miscellaneous Medication (Pharmacy To Dose) 0 each PO .WARFARIN PRN PRN Reason: PHARMACY TO DOSE Miscellaneous Medication (Phos-Nak) 1 pkt PO TIDPRN PRN PRN Reason: FOR PHOS LEVEL 1.0 - 1.8 Miscellaneous Medication (Phos-Nak) 2 pkt PO TIDPRN PRN PRN Reason: FOR PHOS LEVEL 0.5 - 1.0 Miscellaneous Medication (Pharmacy To Dose) 1 each PO .WARFARIN [facility] Ccu Electrolyte (Replacement Protocol) 0 each FS PRN PRN PRN Reason: FOR ELECTROLYTE REPLACEMENT Ondansetron HCl (Zofran) 4 mg SLOW IVP Q6H PRN PRN Reason: Nausea/Vomiting Last Admin: 11/29/18 04:04 Dose: 4 mg Polyethylene Glycol (Miralax) 17 gm PO DAILY [facility] Potassium Chloride (K-Dur) 40 meq PO ASDIR PRN PRN Reason: FOR SERUM K+ 2.5 - 3.5 Last Admin: 12/03/18 09:46 Dose: 40 meq Potassium Chloride (Klor-Con) 40 meq PER TUBE ASDIR PRN PRN Reason: FOR SERUM K+ 2.5-3.5 Promethazine HCl (Phenergan 6.25 Mg/5ml Syrup) 6.25 mg PO Q6H PRN PRN Reason: Nausea/Vomiting Last Admin: 11/29/18 07:58 Dose: 6.25 mg Senna/Docusate Sodium (Senokot S) 1 tab PO BID [facility] Last Admin: 12/03/18 20:06 Dose: Not Given Senna/Docusate Sodium (Senokot S) 2 tab PO BID [facility] Last Admin: 12/03/18 20:05 Dose: 2 tab Sodium Chloride (Flush - Normal Saline) 10 ml IVF Q12HR [facility] Last Admin: 12/03/18 20:05 Dose: 10 ml Sodium Chloride (Flush - Normal Saline) 10 ml IVF PRN PRN PRN Reason: Saline Flush Last Admin: 12/03/18 13:58 Dose: 10 ml Warfarin Sodium (Coumadin) 5 mg PO SuTuWeThSa [facility] Last Admin: 12/03/18 17:56 Dose: 5 mg Warfarin Sodium (Coumadin) 2.5 mg PO MoFr [facility]
[2018-12-04] MEDS: Ondansetron PF 4 MG/2 ML Vial SLOW IVP PRN (03:12)
[2018-12-04] MEDS: Furosemide 40 MG/4 ML VIAL SLOW IVP SCH ×2 (05:48→15:37)
[2018-12-04 06:12] LABS: INR-International Normal Ratio 1.5; Prothrombin Time 17.7 SEC (12.0-14.7)
[2018-12-04 06:23] LABS: Anion Gap 16 mmol/L (10-20); BUN (Urea Nitrogen) 61 mg/dL (9.8-20.1); Calc. Creatinine Clearance 50 mL/min (70-130); Calcium 8.8 mg/dL (7.8-10.44); Carbon Dioxide 28 mmol/L (23-31); Chloride 91 mmol/L (98-107); Estimated GFR-MDRD 29; Glucose 82 mg/dL (83-110); Magnesium 2.5 mg/dL (1.6-2.6); Potassium 4.5 mmol/L (3.5-5.1); Sodium 130 mmol/L (136-145)
[2018-12-04 06:26] LABS: Hemoglobin 10.1 g/dL (12.0-16.0); Mean Corpuscular HGB CONC 30.9 g/dL (32.0-36.0); Mean Corpuscular Hemoglobin 24.9 pg (27.0-31.0); Mean Corpuscular Volume 80.8 fL (78.0-98.0); Platelet Count 212 thou/uL (130-400); RBC Distribution Width 16.3 % (11.5-14.5); Red Blood Cell (RBC) Count 4.06 mill/uL (4.20-5.40); White Blood Cell (WBC) Count 5.3 thou/uL (4.8-10.8)
[2018-12-04 06:32] LABS: Band 2 % (5-11); Hypochromia SLIGHT = 6-15 cells (100X) (0-5/hpf); Lymphocytes 20 % (21-51); MDiff Complete? YES; Monocytes 8 % (0-10); Neutrophil 70 % (42-75); Ovalocytes SLIGHT = 2-5 cells (100X) (0-1/hpf); Platelet Morphology Comment Appears Adequate; Polychromasia SLIGHT = 2-3 cells (100X) (0-2/hpf); Tear Drops SLIGHT = 2-5 cells (100X) (0-1/hpf)
[2018-12-04] MEDS: Senokot S 8.6-50 MG TAB PO SCH ×2 (07:45→21:33)
[2018-12-04] MEDS: Atorvastatin Calcium 10 MG TAB PO SCH (07:45)
[2018-12-04] MEDS: Polyethylene Glycol 3350 17 GM Packet PO SCH (07:45)
[2018-12-04] MEDS: Famotidine 20 MG TAB PO SCH (07:45)
[2018-12-04] MEDS: FLUoxetine HCl 20 MG CAP PO SCH (07:46)
[2018-12-04] MEDS: Milk Of Magnesia 30 ML UDCUP PO PRN (07:49)
--- NOTE | 2018-12-04 13:06 | PDOC.PN ---
- Subjective Encounter Start Date: 12/04/18 Encounter Start Time: 09:00 -: old records requested/rev pt is seated in chair, has leg edema, but overall feels better than before - Objective MAR Reviewed: Yes Vital Signs & Weight: Vital Signs (12 hours) Temp Pulse Ox 12/04/18 08:00 98 12/04/18 07:00 98.4 F 12/04/18 04:00 98.0 F Weight Admit Weight 275 lb Weight 297 lb 9.985 oz Most Recent Monitor Data Heart Rate from ECG 85 NIBP 89/61 NIBP BP-Mean 70 Respiration from ECG 21 SpO2 96 I&O: 12/03/18 12/04/18 12/05/18 06:59 06:59 06:59 Intake Total 2035 Output Total 1374 2016 361 Balance 661 -962 79 Result Diagrams: 12/04/18 05:45 12/04/18 05:45 EKG Reviewed by me: Yes Phys Exam - Physical Examination Constitutional: NAD HEENT: PERRLA, moist MMs, sclera anicteric Neck: no JVD, supple Respiratory: no wheezing, no rales, no rhonchi Cardiovascular: RRR, no rub SM+ Gastrointestinal: soft, non-tender, no distention, positive bowel sounds Musculoskeletal: pulses present, edema present Neurological: non-focal, normal sensation Lymphatic: no nodes Psychiatric: normal affect, A&O x 3 Skin: no rash, normal turgor Dx/Plan (1) Acute on chronic diastolic ACC/AHA stage C congestive heart failure Code(s): I50.33 - ACUTE ON CHRONIC DIASTOLIC (CONGESTIVE) HEART FAILURE Status : Acute (2) Acute renal failure superimposed on stage 3 chronic kidney disease Code(s): N17.9 - ACUTE KIDNEY FAILURE, UNSPECIFIED; N18.3 - CHRONIC KIDNEY DISEASE, STAGE 3 (MODERATE) Status: Acute (3) Constipation Code(s): K59.00 - CONSTIPATION, UNSPECIFIED Status: Acute (4) Hyponatremia Code(s): E87.1 - HYPO-OSMOLALITY AND HYPONATREMIA Status: Acute Comment: (5) Paroxysmal atrial fibrillation Code(s): I48.0 - PAROXYSMAL ATRIAL FIBRILLATION Status: Acute Comment: (6) Anemia, normocytic normochromic Code(s): D64.9 - ANEMIA, UNSPECIFIED Status: Chronic (7) CAD (coronary artery disease) Code(s): I25.10 - ATHSCL HEART DISEASE OF [place] CORONARY ARTERY W/O ANG PCTRS Status: Chronic Comment: stable (8) Chronic anticoagulation Code(s): Z79.01 - INTERMEDIATE (CURRENT) USE OF ANTICOAGULANTS Status: Chronic (9) Dyslipidemia Code(s): E78.5 - HYPERLIPIDEMIA, UNSPECIFIED Status: Chronic Comment: continue statin (10) Morbid obesity with BMI of 45.0-49.9, adult Code(s): E66.01 - MORBID (SEVERE) OBESITY DUE TO EXCESS CALORIES; Z68.42 - BODY MASS INDEX (BMI) 45.0-49.9, ADULT Status: Chronic (11) Physical deconditioning Code(s): R53.81 - OTHER MALAISE Status: Chronic Comment: (12) Severe mitral regurgitation Code(s): I34.0 - NONRHEUMATIC MITRAL (VALVE) INSUFFICIENCY Status: Chronic Comment: (13) Severe tricuspid valve regurgitation Code(s): I07.1 - RHEUMATIC TRICUSPID INSUFFICIENCY Status: Chronic Comment: (14) Hypokalemia Code(s): E87.6 - HYPOKALEMIA Status: Resolved - Plan cont current plan of care, PT/OT * continue lasix as tolerated * transfer to tele * medication reviewed as below * symptomatic treatment * she will need placement to s[facility] on discharge * continue cardiac rehab * renal function improving and now BP is better off milrinon drip. Review of Systems - Review of Systems Constitutional: weakness. negative: fever, chills, sweats, malaise, other Respiratory: SOB with Excertion. negative: Cough, Dry, Shortness of Breath, Hemoptysis, Pleuritic Pain, Sputum, Wheezing Cardiovascular: edema. negative: chest pain, palpitations, orthopnea, paroxysmal nocturnal dyspnea, light headedness, other Gastrointestinal: negative: Nausea, Vomiting, Abdominal Pain, Diarrhea, Constipation, Melena, Hematochezia, Other Genitourinary: negative: Dysuria, Frequency, Incontinence, Hematuria, Retention , Other Musculoskeletal: negative: Neck Pain, Shoulder Pain, Arm Pain, Back Pain, Hand Pain, Leg Pain, Foot Pain, Other Skin: negative: Rash, Lesions, Med[place], Bruising, Other - Medications/Allergies Allergies/Adverse Reactions: Allergies Allergy/AdvReac Type Severity Reaction Status Date / Time HARJINDER Inhibitors Allergy swelling Verified 10/23/18 20:15 aspirin Allergy "messed Verified 10/23/18 20:15 with my acid reflux" ciprofloxacin Allergy "made me Verified 10/23/18 20:15 itch" metoprolol [From Lopressor] Allergy Verified 10/23/18 20:15 Penicillins Allergy "i break Verified 10/23/18 20:15 out" Medications: Current Medications Acetaminophen (Tylenol) 650 mg PO Q4H PRN PRN Reason: Headache/Fever or Pain Last Admin: 12/03/18 13:52 Dose: 650 mg Atorvastatin Calcium (Lipitor) 10 mg PO DAILY [facility] Last Admin: 12/04/18 07:45 Dose: 10 mg Bisacodyl (Dulcolax) 10 mg [place] DAILYPRN PRN PRN Reason: Constipation Last Admin: 12/03/18 12:16 Dose: 10 mg Famotidine (Pepcid) 20 mg PO DAILY [facility] Last Admin: 12/04/18 07:45 Dose: 20 mg Fluoxetine HCl (Prozac) 20 mg PO QAM [facility] Last Admin: 12/04/18 07:46 Dose: 20 mg Furosemide (Lasix) 40 mg SLOW IVP 0600,1400 [facility] Last Admin: 12/04/18 05:48 Dose: 40 mg Hydrocortisone/Pramoxine (Proctofoam Hc) 1 gm TOP TIDPRN PRN PRN Reason: Hemorrhoids Potassium Chloride 40 meq/ (Sodium Chloride) 270 mls @ 135 mls/hr IVPB ASDIR PRN PRN Reason: FOR SERUM K+ 2.5 - 3.5 Potassium Chloride 40 meq/ (Device) 100 mls @ 50 mls/hr IVPB ASDIR PRN PRN Reason: FOR SERUM K+ 2.5 - 3.5 Magnesium Sulfate 1 gm/ Sodium (Chloride) 102 mls @ 102 mls/hr IV PRN PRN PRN Reason: MAG LEVEL 1.4 - 2.0 Magnesium Sulfate 2 gm/ Device 50 mls @ 50 mls/hr IVPB ASDIR PRN PRN Reason: MAGNESIUM < 1.4 Potassium Phosphate 9 mmol/ (Sodium Chloride) 103 mls @ 25.75 mls/hr IVPB ASDIR PRN PRN Reason: Phosphate 1.0-1.8 Potassium Phosphate 12 mmol/ (Sodium Chloride) 254 mls @ 63.5 mls/hr IV ASDIR PRN PRN Reason: Serum phosphate 0.5-0.9 Potassium Phosphate 15 mmol/ (Sodium Chloride) 255 mls @ 63.75 mls/hr IV ASDIR PRN PRN Reason: Serum Phos < 0.5 Lorazepam (Ativan) 0.5 mg PO Q8HR PRN PRN Reason: Anxiety/Agitation Last Admin: 11/30/18 22:36 Dose: 0.5 mg Magnesium Hydroxide (Milk Of Magnesium) 30 ml PO DAILYPRN PRN PRN Reason: Constipation Last Admin: 12/04/18 07:49 Dose: 30 ml Magnesium Oxide (Magnesium Oxide) 400 mg PO BIDPRN PRN PRN Reason: FOR SERUM MAG 1.4 - 2.0 Magnesium Oxide (Magnesium Oxide) 800 mg PO PRN PRN PRN Reason: FOR SERUM MAG < 1.4 Miscellaneous Medication (Pharmacy To Dose) 0 each PO .WARFARIN PRN PRN Reason: PHARMACY TO DOSE Miscellaneous Medication (Phos-Nak) 1 pkt PO TIDPRN PRN PRN Reason: FOR PHOS LEVEL 1.0 - 1.8 Miscellaneous Medication (Phos-Nak) 2 pkt PO TIDPRN PRN PRN Reason: FOR PHOS LEVEL 0.5 - 1.0 Miscellaneous Medication (Pharmacy To Dose) 1 each PO .WARFARIN [facility] Ccu Electrolyte (Replacement Protocol) 0 each FS PRN PRN PRN Reason: FOR ELECTROLYTE REPLACEMENT Ondansetron HCl (Zofran) 4 mg SLOW IVP Q6H PRN PRN Reason: Nausea/Vomiting Last Admin: 12/04/18 03:12 Dose: 4 mg Polyethylene Glycol (Miralax) 17 gm PO DAILY [facility] Last Admin: 12/04/18 07:45 Dose: 17 gm Potassium Chloride (K-Dur) 40 meq PO ASDIR PRN PRN Reason: FOR SERUM K+ 2.5 - 3.5 Last Admin: 12/03/18 09:46 Dose: 40 meq Potassium Chloride (Klor-Con) 40 meq PER TUBE ASDIR PRN PRN Reason: FOR SERUM K+ 2.5-3.5 Promethazine HCl (Phenergan 6.25 Mg/5ml Syrup) 6.25 mg PO Q6H PRN PRN Reason: Nausea/Vomiting Last Admin: 11/29/18 07:58 Dose: 6.25 mg Senna/Docusate Sodium (Senokot S) 2 tab PO BID [facility] Last Admin: 12/04/18 07:45 Dose: 2 tab Sodium Chloride (Flush - Normal Saline) 10 ml IVF Q12HR [facility] Last Admin: 12/04/18 07:45 Dose: 10 ml Sodium Chloride (Flush - Normal Saline) 10 ml IVF PRN PRN PRN Reason: Saline Flush Last Admin: 12/03/18 13:58 Dose: 10 ml Warfarin Sodium (Coumadin) 5 mg PO SuTuWeThSa [facility] Last Admin: 12/03/18 17:56 Dose: 5 mg Warfarin Sodium (Coumadin) 2.5 mg PO [facility]
--- NOTE | 2018-12-04 13:22 | PRG ---
DATE OF SERVICE: 12/04/2018 SUBJECTIVE: Estefania Vigil did well overnight. She is sitting in a bedside chair. She says she feels great. She actually walked to the bathroom without assistance. OBJECTIVE: VITAL SIGNS: Blood pressure is 89/61, heart rate is 85, respiratory rate is 20. LUNGS: Clear. HEART: Regular rhythm. Murmur is unchanged. ABDOMEN: Soft. LABORATORY DATA: White count 5.3, hemoglobin 10.1, and platelets 212,000. Sodium 130, potassium 4.5, chloride 91, bicarb 28, BUN 61, and creatinine 2.02. IMPRESSION: 1. Valvular heart disease and congestive heart failure, clinically improving. 2. Acute on chronic renal dysfunction aggravated by chronic valvular heart disease and decompensated heart failure, improved. 3. Obesity and deconditioning, improving. PLAN: Plan is transfer out of critical care unit once a bed becomes available. Job ID: [id number]
[2018-12-04] MEDS: Warfarin Sodium 5 MG TAB PO SCH (17:36)
--- NOTE | 2018-12-04 17:39 | PRG ---
DATE OF SERVICE: 12/04/2018 SUBJECTIVE: Patient was seen and examined at bedside and overnight events noted. Patient denies any shortness of breath or chest pain or palpitation. No history of nausea or vomiting or diarrhea or fever or chills or cramps. OBJECTIVE: GENERAL: This is a well-built female, in no acute distress. VITAL SIGNS: Temperature 98.4. Heart rate 72. Respiratory rate 20. Blood pressure 102/65. HEENT: Atraumatic, normocephalic. Oral mucosa is moist NECK: Supple. CARDIOVASCULAR: S1, S2 heard. Rate and rhythm regular. RESPIRATORY: Clear to auscultation. GASTROINTESTINAL: Abdomen is soft. MUSCULOSKELETAL: No tenderness. No edema. DERMATOLOGIC: No skin rash. NEUROLOGIC: Alert and awake and oriented X3. No focal neurologic deficits. Moving all the extremities. PSYCHIATRIC: Mood and affect normal. LABORATORY DATA: Potassium is 4.5. BUN is 61 and creatinine is 2.1. ASSESSMENT AND PLAN: 1. Acute kidney injury on chronic kidney disease secondary to cardiorenal syndrome, getting better. 2. Hypokalemia, better. 3. Cardiorenal syndrome. 4. Metabolic alkalosis, better. 5. Anemia. Replace electrolytes and monitor renal function. Job ID: [id number]
--- NOTE | 2018-12-04 19:24 | PDOC.CTH ---
Cardiology Progress Note - Subjective She is doing well. Breathing slowly improving. Continues to diurese. - Objective Vital Signs Temp Pulse Pulse Pulse Resp BP BP 12/04/18 18:02 97.5 F L 61 17 12/04/18 14:00 97.3 F L 12/04/18 13:53 73 60 102/67 99/57 L 12/04/18 08:00 BP Pulse Ox Pulse Ox Pulse Ox 12/04/18 18:02 121/58 L 99 12/04/18 14:00 12/04/18 13:53 98 98 12/04/18 08:00 98 Admit Weight 275 lb Weight 297 lb 9.985 oz 12/03/18 12/04/18 12/05/18 06:59 06:59 06:59 Intake Total 2035 1055 1230 Output Total 1375 2016 181 Balance 671 -962 -581 - Physical Examination General/Neuro: alert & oriented x3, NAD Neck: no JVD present Lungs: unlabored respirations Heart: RRR Abdomen: NT/ND Extremities: + edema B (2+) - Telemetry Telemetry Rhythm: NSR - Labs Result Diagrams: 12/04/18 05:45 12/04/18 05:45 Troponin/CKMB Troponin I 0.014 ng/mL (< 0.028) 11/14/18 04:46 - Assessment/Plan 1. Acute on chronic diastolic heart failure. 2. Restrictive pattern 3. Severe TR, Severe MR 4. Paroxysmal afib 5. KALI on CKD 6. Hyperkalemia 7. Hypotension. 8. Severely deconditioned. PLAN: - She ois over 24 hrs removed from milrinone and continues to diurese and continues to drop her creatinine. - Continue IV lasix at lower dose. - Creatinine continues to improve. - May transfer to telemetry floor. - Replace K.
[2018-12-05] MEDS: Lorazepam 0.5 MG TAB PO PRN (05:47)
[2018-12-05] MEDS: Furosemide 40 MG/4 ML VIAL SLOW IVP SCH ×2 (05:47→14:32)
[2018-12-05 05:48] LABS: INR-International Normal Ratio 1.5; Prothrombin Time 18.1 SEC (12.0-14.7)
[2018-12-05 06:01] LABS: Eosinophils 2 % (0-10); Hemoglobin 10.1 g/dL (12.0-16.0); Hypochromia MODERATE=16-30 cells (100X) (0-5/hpf); Lymphocytes 19 % (21-51); MDiff Complete? YES; Mean Corpuscular HGB CONC 29.5 g/dL (32.0-36.0); Mean Corpuscular Hemoglobin 23.7 pg (27.0-31.0); Mean Corpuscular Volume 80.4 fL (78.0-98.0); Mean Platelet Volume 9.3 fL (7.4-10.4); Metamyelocyte 1 % (0-0); Monocytes 13 % (0-10); Neutrophil 65 % (42-75); Platelet Count 268 thou/uL (130-400); Platelet Morphology Comment Appears Adequate; RBC Distribution Width 16.5 % (11.5-14.5); Red Blood Cell (RBC) Count 4.26 mill/uL (4.20-5.40); White Blood Cell (WBC) Count 4.9 thou/uL (4.8-10.8)
[2018-12-05 06:04] LABS: Anion Gap 15 mmol/L (10-20); BUN (Urea Nitrogen) 61 mg/dL (9.8-20.1); Calc. Creatinine Clearance 53 mL/min (70-130); Calcium 9.1 mg/dL (7.8-10.44); Carbon Dioxide 30 mmol/L (23-31); Chloride 92 mmol/L (98-107); Estimated GFR-MDRD 32; Glucose 83 mg/dL (83-110); Potassium 3.8 mmol/L (3.5-5.1); Sodium 133 mmol/L (136-145)
[2018-12-05] MEDS: Atorvastatin Calcium 10 MG TAB PO SCH (08:59)
[2018-12-05] MEDS: Famotidine 20 MG TAB PO SCH (08:59)
[2018-12-05] MEDS: FLUoxetine HCl 20 MG CAP PO SCH (09:00)
[2018-12-05] MEDS: Senokot S 8.6-50 MG TAB PO SCH ×2 (09:00→20:45)
[2018-12-05] MEDS: Polyethylene Glycol 3350 17 GM Packet PO SCH (09:00)
[2018-12-05 13:02] VITALS: BMI 46.9
--- NOTE | 2018-12-05 13:22 | PDOC.PN ---
- Subjective Encounter Start Date: 12/05/18 Encounter Start Time: 09:00 Patient seen and examined. No new complaints. No overnight events - Objective MAR Reviewed: Yes Vital Signs & Weight: Vital Signs (12 hours) Temp Pulse Resp BP BP Pulse Ox 12/05/18 12:52 97.5 F L 60 12 107/55 L 98 12/05/18 08:25 97.4 F L 61 18 109/55 L 98 12/05/18 04:25 98.4 F 63 16 108/63 99 Weight Admit Weight 275 lb Weight 290 lb 9 oz Most Recent Monitor Data Heart Rate from ECG 60 NIBP 112/61 NIBP BP-Mean 78 Respiration from ECG 18 SpO2 97 I&O: 12/04/18 12/05/18 12/06/18 06:59 06:59 06:59 Intake Total 1054 1650 Output Total 2016 2260 Balance -962 -611 Result Diagrams: 12/05/18 05:08 12/05/18 05:08 EKG Reviewed by me: Yes Phys Exam - Physical Examination Constitutional: NAD HEENT: PERRLA, moist MMs, sclera anicteric Neck: no JVD, supple Respiratory: no wheezing, no rales, no rhonchi Cardiovascular: RRR, no significant murmur, no rub Gastrointestinal: soft, non-tender, no distention, positive bowel sounds Musculoskeletal: pulses present, edema present Neurological: non-focal, normal sensation Lymphatic: no nodes Psychiatric: normal affect Skin: no rash, normal turgor Dx/Plan (1) Acute on chronic diastolic ACC/AHA stage C congestive heart failure Code(s): I50.33 - ACUTE ON CHRONIC DIASTOLIC (CONGESTIVE) HEART FAILURE Status : Acute (2) Acute renal failure superimposed on stage 3 chronic kidney disease Code(s): N17.9 - ACUTE KIDNEY FAILURE, UNSPECIFIED; N18.3 - CHRONIC KIDNEY DISEASE, STAGE 3 (MODERATE) Status: Acute (3) Constipation Code(s): K59.00 - CONSTIPATION, UNSPECIFIED Status: Acute (4) Hyponatremia Code(s): E87.1 - HYPO-OSMOLALITY AND HYPONATREMIA Status: Acute Comment: (5) Paroxysmal atrial fibrillation Code(s): I48.0 - PAROXYSMAL ATRIAL FIBRILLATION Status: Acute Comment: (6) Anemia, normocytic normochromic Code(s): D64.9 - ANEMIA, UNSPECIFIED Status: Chronic (7) CAD (coronary artery disease) Code(s): I25.10 - ATHSCL HEART DISEASE OF [place] CORONARY ARTERY W/O ANG PCTRS Status: Chronic Comment: stable (8) Chronic anticoagulation Code(s): Z79.01 - FREELANCE DISPLAYER (CURRENT) USE OF ANTICOAGULANTS Status: Chronic (9) Dyslipidemia Code(s): E78.5 - HYPERLIPIDEMIA, UNSPECIFIED Status: Chronic Comment: continue statin (10) Morbid obesity with BMI of 45.0-49.9, adult Code(s): E66.01 - MORBID (SEVERE) OBESITY DUE TO EXCESS CALORIES; Z68.42 - BODY MASS INDEX (BMI) 45.0-49.9, ADULT Status: Chronic (11) Physical deconditioning Code(s): R53.81 - OTHER MALAISE Status: Chronic Comment: (12) Severe mitral regurgitation Code(s): I34.0 - NONRHEUMATIC MITRAL (VALVE) INSUFFICIENCY Status: Chronic Comment: (13) Severe tricuspid valve regurgitation Code(s): I07.1 - RHEUMATIC TRICUSPID INSUFFICIENCY Status: Chronic Comment: (14) Hypokalemia Code(s): E87.6 - HYPOKALEMIA Status: Resolved - Plan cont current plan of care * continue diuresis, still has lot of leg edema * medication reviewed as below * symptomatic treatment * will need placement. Review of Systems - Review of Systems Constitutional: weakness. negative: fever, chills, sweats, malaise, other ENT: negative: Ear Pain, Ear Discharge, Nose Pain, Nose Discharge, Nose Congestion, Mouth Pain, Mouth Swelling, Throat Pain, Throat Swelling, Other Respiratory: SOB with Excertion. negative: Cough, Dry, Shortness of Breath, Hemoptysis, Pleuritic Pain, Sputum, Wheezing Cardiovascular: edema. negative: chest pain, palpitations, orthopnea, paroxysmal nocturnal dyspnea, light headedness, other Gastrointestinal: negative: Nausea, Vomiting, Abdominal Pain, Diarrhea, Constipation, Melena, Hematochezia, Other Genitourinary: negative: Dysuria, Frequency, Incontinence, Hematuria, Retention , Other Musculoskeletal: negative: Neck Pain, Shoulder Pain, Arm Pain, Back Pain, Hand Pain, Leg Pain, Foot Pain, Other - Medications/Allergies Allergies/Adverse Reactions: Allergies Allergy/AdvReac Type Severity Reaction Status Date / Time HARJINDER Inhibitors Allergy swelling Verified 10/23/18 20:15 aspirin Allergy "messed Verified 10/23/18 20:15 with my acid reflux" ciprofloxacin Allergy "made me Verified 10/23/18 20:15 itch" metoprolol [From Lopressor] Allergy Verified 10/23/18 20:15 Penicillins Allergy "i break Verified 10/23/18 20:15 out" Medications: Current Medications Acetaminophen (Tylenol) 650 mg PO Q4H PRN PRN Reason: Headache/Fever or Pain Last Admin: 12/03/18 13:52 Dose: 650 mg Atorvastatin Calcium (Lipitor) 10 mg PO DAILY [facility] Last Admin: 12/05/18 08:59 Dose: 10 mg Bisacodyl (Dulcolax) 10 mg [place] DAILYPRN PRN PRN Reason: Constipation Last Admin: 12/03/18 12:16 Dose: 10 mg Famotidine (Pepcid) 20 mg PO DAILY [facility] Last Admin: 12/05/18 08:59 Dose: 20 mg Fluoxetine HCl (Prozac) 20 mg PO QAM [facility] Last Admin: 12/05/18 09:00 Dose: 20 mg Furosemide (Lasix) 40 mg SLOW IVP 0600,1400 [facility] Last Admin: 12/05/18 05:47 Dose: 40 mg Hydrocortisone/Pramoxine (Proctofoam Hc) 1 gm TOP TIDPRN PRN PRN Reason: Hemorrhoids Potassium Chloride 40 meq/ (Sodium Chloride) 270 mls @ 135 mls/hr IVPB ASDIR PRN PRN Reason: FOR SERUM K+ 2.5 - 3.5 Potassium Chloride 40 meq/ (Device) 100 mls @ 50 mls/hr IVPB ASDIR PRN PRN Reason: FOR SERUM K+ 2.5 - 3.5 Magnesium Sulfate 1 gm/ Sodium (Chloride) 102 mls @ 102 mls/hr IV PRN PRN PRN Reason: MAG LEVEL 1.4 - 2.0 Magnesium Sulfate 2 gm/ Device 50 mls @ 50 mls/hr IVPB ASDIR PRN PRN Reason: MAGNESIUM < 1.4 Potassium Phosphate 9 mmol/ (Sodium Chloride) 103 mls @ 25.75 mls/hr IVPB ASDIR PRN PRN Reason: Phosphate 1.0-1.8 Potassium Phosphate 12 mmol/ (Sodium Chloride) 254 mls @ 63.5 mls/hr IV ASDIR PRN PRN Reason: Serum phosphate 0.5-0.9 Potassium Phosphate 15 mmol/ (Sodium Chloride) 255 mls @ 63.75 mls/hr IV ASDIR PRN PRN Reason: Serum Phos < 0.5 Lorazepam (Ativan) 0.5 mg PO Q8HR PRN PRN Reason: Anxiety/Agitation Last Admin: 12/05/18 05:47 Dose: 0.5 mg Magnesium Hydroxide (Milk Of Magnesium) 30 ml PO DAILYPRN PRN PRN Reason: Constipation Last Admin: 12/04/18 07:49 Dose: 30 ml Magnesium Oxide (Magnesium Oxide) 400 mg PO BIDPRN PRN PRN Reason: FOR SERUM MAG 1.4 - 2.0 Magnesium Oxide (Magnesium Oxide) 800 mg PO PRN PRN PRN Reason: FOR SERUM MAG < 1.4 Miscellaneous Medication (Pharmacy To Dose) 0 each PO .WARFARIN PRN PRN Reason: PHARMACY TO DOSE Miscellaneous Medication (Phos-Nak) 1 pkt PO TIDPRN PRN PRN Reason: FOR PHOS LEVEL 1.0 - 1.8 Miscellaneous Medication (Phos-Nak) 2 pkt PO TIDPRN PRN PRN Reason: FOR PHOS LEVEL 0.5 - 1.0 Miscellaneous Medication (Pharmacy To Dose) 1 each PO .WARFARIN [facility] Ccu Electrolyte (Replacement Protocol) 0 each FS PRN PRN PRN Reason: FOR ELECTROLYTE REPLACEMENT Ondansetron HCl (Zofran) 4 mg SLOW IVP Q6H PRN PRN Reason: Nausea/Vomiting Last Admin: 12/04/18 03:12 Dose: 4 mg Polyethylene Glycol (Miralax) 17 gm PO DAILY [facility] Last Admin: 12/05/18 09:00 Dose: 17 gm Potassium Chloride (K-Dur) 40 meq PO ASDIR PRN PRN Reason: FOR SERUM K+ 2.5 - 3.5 Last Admin: 12/03/18 09:46 Dose: 40 meq Potassium Chloride (Klor-Con) 40 meq PER TUBE ASDIR PRN PRN Reason: FOR SERUM K+ 2.5-3.5 Promethazine HCl (Phenergan 6.25 Mg/5ml Syrup) 6.25 mg PO Q6H PRN PRN Reason: Nausea/Vomiting Last Admin: 11/29/18 07:58 Dose: 6.25 mg Senna/Docusate Sodium (Senokot S) 2 tab PO BID [facility] Last Admin: 12/05/18 09:00 Dose: 2 tab Sodium Chloride (Flush - Normal Saline) 10 ml IVF Q12HR [facility] Last Admin: 12/05/18 09:00 Dose: 10 ml Sodium Chloride (Flush - Normal Saline) 10 ml IVF PRN PRN PRN Reason: Saline Flush Last Admin: 12/05/18 05:47 Dose: 10 ml Warfarin Sodium (Coumadin) 5 mg PO SuTuWeThSa [facility] Last Admin: 12/04/18 17:36 Dose: 5 mg Warfarin Sodium (Coumadin) 2.[address] [facility]
[2018-12-05] MEDS ORDERED: Warfarin Sodium 5 MG TAB PO SCH ×2 (14:30→17:00)
--- NOTE | 2018-12-05 16:32 | PRG ---
DATE OF SERVICE: 12/05/2018 OBJECTIVE: VITAL SIGNS: Ms. Vigil is afebrile, heart rate is 61, respiratory rate 15, oximetry is 98% on room air, and blood pressure 100/57. LUNGS: Clear. HEART: Regular rhythm. ABDOMEN: Soft. LABORATORY DATA: White count 4.9, hemoglobin 10.1, and platelets 268. Sodium 133; potassium 3.8; chloride 92; bicarb 30; BUN 61; and creatinine 1.87, which is the best so far, on the , she was 4.11. IMPRESSION: 1. Congestive heart failure secondary to valvular heart disease. 2. Improving renal function with acute on chronic kidney disease. 3. Obesity with deconditioning. PLAN: I have explained to family. She still has the same heart problems that she came in with and that these events may occur again and are likely to occur again since there is no surgical fix. 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 We will sign off. Job ID: [id number]
--- NOTE | 2018-12-05 16:49 | PDOC.CTH ---
Cardiology Progress Note - Subjective She is doing better. feeling better every day. - Objective Vital Signs Temp Pulse Pulse Pulse Pulse Resp BP 12/05/18 15:40 97.9 F 61 15 12/05/18 13:55 62 83 64 100/57 L 12/05/18 12:52 97.5 F L 60 12 12/05/18 08:49 61 109/55 L 12/05/18 08:25 97.4 F L 61 18 BP BP BP Pulse Ox Pulse Ox 12/05/18 15:40 106/54 L 98 12/05/18 13:55 115/72 132/69 12/05/18 12:52 107/55 L 98 12/05/18 08:49 98 12/05/18 08:25 109/55 L 98 Admit Weight 275 lb Weight 290 lb 9 oz 12/04/18 12/05/18 12/06/18 06:59 06:59 06:59 Intake Total 1055 1650 870 Output Total 20161 Balance -962 -611 870 - Physical Examination General/Neuro: alert & oriented x3, NAD Neck: no JVD present Lungs: CTA, unlabored respirations Heart: RRR Abdomen: NT/ND Extremities: + edema B (2+) - Telemetry Telemetry Rhythm: NSR - Labs Result Diagrams: 12/05/18 05:08 12/05/18 05:08 Troponin/CKMB Troponin I 0.014 ng/mL (< 0.028) 11/14/18 04:46 - Assessment/Plan 1. Acute on chronic diastolic heart failure. 2. Restrictive pattern 3. Severe TR, Severe MR 4. Paroxysmal afib 5. KALI on CKD 6. Hypotension, resolved. 7. Severely deconditioned. PLAN: - Creatinine continues to improve. - Will switch IV lasix to PO. - Will start looking at placement for her.
[2018-12-06 07:34] LABS: INR-International Normal Ratio 1.7; Prothrombin Time 19.6 SEC (12.0-14.7)
[2018-12-06 07:35] LABS: Anion Gap 14 mmol/L (10-20); BUN (Urea Nitrogen) 59 mg/dL (9.8-20.1); Calc. Creatinine Clearance 57 mL/min (70-130); Carbon Dioxide 33 mmol/L (23-31); Chloride 90 mmol/L (98-107); Estimated GFR-MDRD 34; Glucose 77 mg/dL (83-110); Potassium 3.2 mmol/L (3.5-5.1); Sodium 134 mmol/L (136-145)
[2018-12-06 07:37] LABS: Mean Corpuscular HGB CONC 30.6 g/dL (32.0-36.0); Mean Corpuscular Hemoglobin 24.9 pg (27.0-31.0); Mean Corpuscular Volume 81.2 fL (78.0-98.0); Platelet Count 262 thou/uL (130-400); RBC Distribution Width 16.5 % (11.5-14.5); Red Blood Cell (RBC) Count 4.02 mill/uL (4.20-5.40); White Blood Cell (WBC) Count 4.2 thou/uL (4.8-10.8)
[2018-12-06] MEDS ORDERED: Furosemide 80 MG TAB PO SCH (09:00)
--- NOTE | 2018-12-06 09:11 | PRG ---
DATE OF SERVICE: 12/05/2018 SUBJECTIVE: Patient was seen and examined at bedside and overnight events noted. Patient denies any shortness of breath or chest pain or palpitation. No history of nausea or vomiting or diarrhea or fever or chills or cramps. OBJECTIVE: GENERAL: This is a well-built female, in no apparent distress. VITAL SIGNS: Temperature 97.5. Heart rate 60. Respiratory rate 12. Blood pressure 132/69. HEENT: Atraumatic, normocephalic. Oral mucosa is moist NECK: Supple. CARDIOVASCULAR: S1, S2 heard. Rate and rhythm regular. RESPIRATORY: Clear to auscultation. GASTROINTESTINAL: Abdomen is soft. MUSCULOSKELETAL: No tenderness. No edema. DERMATOLOGIC: No skin rash. NEUROLOGIC: Alert and awake and oriented X3. No focal neurologic deficits. Moving all the extremities. PSYCHIATRIC: Mood and affect normal. LABORATORY DATA: Potassium is 3.8, BUN is 61, creatinine is 1.9. ASSESSMENT AND PLAN: 1. Acute kidney injury on chronic kidney stage 3, better. 2. Cardiorenal syndrome. Continue supportive care . 3. Hypokalemia, better. 4. Metabolic alkalosis. 5. Anemia. Consider switching to p.o. diuretics as tolerated and monitor. Job ID: [id number]
[2018-12-06 09:26] LABS: Eosinophils 3 % (0-10); Hypochromia SLIGHT = 6-15 cells (100X) (0-5/hpf); Lymphocytes 16 % (21-51); MDiff Complete? YES; Monocytes 9 % (0-10); Neutrophil 71 % (42-75); Ovalocytes SLIGHT = 2-5 cells (100X) (0-1/hpf); Platelet Morphology Comment Appears Adequate; Polychromasia MODERATE = 3-4 cells (100X) (0-2/hpf); Target Cells SLIGHT = 2-5 cells (100X) (0-1/hpf)
[2018-12-06] MEDS: Polyethylene Glycol 3350 17 GM Packet PO SCH (11:21)
[2018-12-06] MEDS: FLUoxetine HCl 20 MG CAP PO SCH (11:21)
[2018-12-06] MEDS: Famotidine 20 MG TAB PO SCH (11:36)
[2018-12-06] MEDS: Senokot S 8.6-50 MG TAB PO SCH (11:36)
[2018-12-06] MEDS: Atorvastatin Calcium 10 MG TAB PO SCH (11:36)
--- NOTE | 2018-12-06 12:02 | DIS ---
DATE OF ADMISSION: 11/17/2018 DATE OF DISCHARGE: 12/06/2018 PRIMARY CARE PHYSICIAN: Bong Timmons MD. DISCHARGE DISPOSITION: [facility]. PRIMARY DISCHARGE DIAGNOSES: 1. Acute on chronic diastolic congestive heart failure stage C. 2. Acute on chronic kidney failure stage III. 3. Hypokalemia. 4. Chronic constipation. 5. Hyponatremia. SECONDARY DISCHARGE DIAGNOSES: 1. Paroxysmal atrial fibrillation. 2. Morbid obesity with BMI of 46. 3. Chronic anticoagulation with warfarin. 4. Physical deconditioning. 5. Severe mitral valve regurgitation. 6. Severe tricuspid regurgitation. 7. Dyslipidemia. 8. Coronary artery disease. 9. Chronic kidney disease stage III. 10. Chronic diastolic heart failure stage C. 11. Normocytic normochromic anemia. PRIMARY PROCEDURE/OPERATION: None. RADIOLOGICAL INVESTIGATION: 1. Chest x-ray. 2. Echocardiography. 3. Abdomen x-ray. SIGNIFICANT LABORATORY DATA: WBC 4.2, hemoglobin 10.0, platelet 262. INR 1.7. Sodium 134, potassium 3.2, creatinine 1.76, calcium 9.0. DISCHARGE MEDICATIONS: 1. Anastrozole 1 mg p.o. daily. 2. Calcium carbonate 1 tablet p.o. daily. 3. Prozac 20 mg daily. 4. Fluticasone inhalation b.i.d. 5. Ativan 1 mg daily. 6. Omeprazole 40 mg daily. 7. Pravastatin 40 mg daily. 8. Lasix 80 mg b.i.d. 9. Warfarin 5 mg p.o. daily. CONTRAINDICATION: None. CODE STATUS: Full code. INPATIENT GLUED WOOD TESTER: Dr. Rushing was following while in hospital. Nephrology was following while in hospital. Pulmonary Group was following while in hospital. TEST RESULTS PENDING ON DISCHARGE: None. ALLERGIES: 1. HARJINDER INHIBITOR. 2. ASPIRIN. 3. CIPRO. 4. METOPROLOL. 5. PENICILLIN. PHYSICAL EXAMINATION: VITAL SIGNS: Today, temperature 98.6, pulse 60, respiratory rate 18, saturation 98% on room air, blood pressure 110/67, weight 290 pounds. GENERAL: The patient is currently alert, awake, no obvious acute distress. HEAD: Normocephalic and atraumatic. LUNGS: Clear to auscultation without any rhonchi or rales. CARDIAC: S1, S2. Regular without any murmur. ABDOMEN: Soft and benign without any tenderness. EXTREMITIES: Lower extremity edema noted. NEUROLOGICAL: Nonfocal examination. DISCHARGE PLAN: Posthospital, the patient is planned for discharge to swing bed. Subsequently, the patient will follow up with primary care physician, groundwater monitoring technician, and medical claims assistant. HOSPITAL COURSE: A 78-year-old female, who was admitted initially by LD Clark. Please see her H and P for further details. On admission, the patient was having significant fluid overload status. She was having acute on chronic kidney failure and acute on diastolic heart failure. She required diuretic therapy, but she was not tolerating diuretic therapy well because of low blood pressure and that is why she required dobutamine drip and subsequently changed to Milrinone drip. With this cardiotonic medication, the patient was making good urine output, and her cardiorenal syndrome was improving. Nephrology was following while in hospital. Upon stabilization, the patient was transferred to telemetry floor, and now she has approval to go to swing bed for more PT/OT and more diuretic therapy. I have seen and examined the patient bedside today. I spoke with LD Miller, and updated about the patient's hospital course. Paperwork for discharge done and discharge medication reconciliation done. Overall, the patient is medically stable for discharge today. Total time spent on discharge day 31 minutes. Job ID: [id number]
--- NOTE | 2018-12-06 12:34 | PRG ---
DATE OF SERVICE: 12/06/2018 SUBJECTIVE: Patient was seen and examined at bedside and overnight events noted. Patient denies any shortness of breath or chest pain or palpitation. No history of nausea or vomiting or diarrhea or fever or chills or cramps. OBJECTIVE: GENERAL: This is a well-built female, in no acute distress. VITAL SIGNS: Temperature . Respiratory rate 18. Blood pressure 110/67. HEENT: Atraumatic, normocephalic. Oral mucosa is moist. NECK: Supple. CARDIOVASCULAR: S1, S2 heard. Rate and rhythm regular. RESPIRATORY: Clear to auscultation. GASTROINTESTINAL: Abdomen is soft. MUSCULOSKELETAL: No tenderness. No edema. DERMATOLOGIC: No skin rash. NEUROLOGIC: Alert and awake and oriented x3. No focal neurologic deficits. Moving all the extremities. PSYCHIATRIC: Mood and affect normal. LABORATORY DATA: Potassium is 3.2, BUN is 59, and creatinine is 1.7 ASSESSMENT AND PLAN: 1. Acute kidney injury on chronic kidney stage 3 with cardiorenal syndrome. 2. Cardiorenal syndrome. 3. Edema. 4. Hypokalemia. 5. Metabolic alkalosis. Consider raising Lasix to 40 p.o. b.i.d. We will follow. Job ID: [id number]
[2018-12-06 12:47] VITALS: TEMP 97.3
[2018-12-06] MEDS ORDERED: Potassium Chloride 20 MEQ TAB PO SCH (13:45)
[2018-12-06 14:19] VITALS: BP 99/58
[2018-12-06] MEDS ORDERED: Warfarin Sodium 2.5 MG TAB PO SCH ×2 (16:29→17:00)
== END 2018-12-06 15:00 | DRG 291 ==
LOC: ERS 22:14 → ERHOLD 11-14 00:04 → T4-A 11-14 12:19 → OBSVTOIN 11-17 16:46 → 2NO 11-19 21:20 → CCU 11-28 20:57 → 2NO 12-04 17:55
PROVIDERS: ADMIT Internal Medicine; ATTEND Internal Medicine
PROC: 3E033XZ Introduction of Vasopressor into Peripheral Vein, Percutaneous Approach (ICD-10-PCS; principal; 2018-11-19)
DX: I13.0 Hypertensive heart and chronic kidney disease with heart failure and stage 1 through stage 4 chronic kidney disease, or unspecified chronic kidney disease (principal); I50.33 Acute on chronic diastolic (congestive) heart failure; N17.9 Acute kidney failure, unspecified; E87.1 Hypo-osmolality and hyponatremia; Z68.42 Body mass index [BMI] 45.0-49.9, adult; E87.3 Alkalosis; I08.1 Rheumatic disorders of both mitral and tricuspid valves; I25.10 Atherosclerotic heart disease of native coronary artery without angina pectoris; E78.5 Hyperlipidemia, unspecified; N18.3 Chronic kidney disease, stage 3 (moderate); M19.90 Unspecified osteoarthritis, unspecified site; K21.9 Gastro-esophageal reflux disease without esophagitis; D63.1 Anemia in chronic kidney disease; J45.909 Unspecified asthma, uncomplicated; F32.9 Major depressive disorder, single episode, unspecified; I42.9 Cardiomyopathy, unspecified; I48.2 Chronic atrial fibrillation; E87.6 Hypokalemia; K59.09 Other constipation; E66.01 Morbid (severe) obesity due to excess calories; I48.0 Paroxysmal atrial fibrillation; Z96.653 Presence of artificial knee joint, bilateral; Z95.1 Presence of aortocoronary bypass graft; Z79.01 Long term (current) use of anticoagulants; Z88.0 Allergy status to penicillin; Z88.8 Allergy status to other drugs, medicaments and biological substances; Z85.3 Personal history of malignant neoplasm of breast; Z90.11 Acquired absence of right breast and nipple; Z79.899 Other long term (current) drug therapy; I95.9 Hypotension, unspecified
CPT/HCPCS: 36415; 36416; 71045; 74018; 80048; 80053; 81003; 81015; 82570; 83735; 83880; 84156; 84484; 85007; 85025; 85027; 85610; 85730; 93005; 93010; 93306; 93798; 93970; J1250; J1940; J2260; J2405; J3490; Q0169; S0028

== ENCOUNTER 2018-12-30 09:48 | Inpatient (IN) | payer MEDICARE ==
[2018-12-30] MEDS ORDERED: Ondansetron PF 4 MG/2 ML Vial ONE (10:02)
[2018-12-30 11:22] LABS: BUN (Urea Nitrogen) 35 mg/dL (9.8-20.1); Calc. Creatinine Clearance 0 mL/min (70-130); Estimated GFR-MDRD 29
[2018-12-30 11:50] LABS: Anion Gap 16 mmol/L (10-20); Calcium 9.1 mg/dL (7.8-10.44); Carbon Dioxide 22 mmol/L (23-31); Chloride 102 mmol/L (98-107); Glucose 69 mg/dL (83-110); Magnesium 1.8 mg/dL (1.6-2.6); Potassium 4.7 mmol/L (3.5-5.1); Sodium 135 mmol/L (136-145)
[2018-12-30] MEDS ORDERED: cloNIDine 0.1 MG TAB PO PRN (14:52)
[2018-12-30] MEDS ORDERED: Acetaminophen 500 MG TAB PO PRN (14:52)
[2018-12-30] MEDS ORDERED: Ondansetron ODT 4 MG TAB PO PRN (14:52)
[2018-12-30] MEDS ORDERED: hydrALAZINE 20 MG/ML VIAL SLOW IVP PRN (14:52)
[2018-12-30] MEDS ORDERED: Ondansetron PF 4 MG/2 ML Vial IVP PRN (14:52)
[2018-12-30 16:09] VITALS: BMI 47.0
[2018-12-30] MEDS: Furosemide 40 MG/4 ML VIAL SLOW IVP SCH (16:14)
[2018-12-30] MEDS ORDERED: Warfarin Sodium 5 MG TAB PO SCH (17:00)
[2018-12-30] MEDS: Mometasone Furoate 120 PUFF 220 MCG INH SCH (19:25)
[2018-12-30] MEDS: Flecainide 50 MG TAB PO SCH (20:22)
[2018-12-30] MEDS: Atorvastatin Calcium 10 MG TAB PO SCH (20:23)
[2018-12-30] MEDS: Docusate 100 MG CAP PO SCH (20:23)
--- NOTE | 2018-12-30 20:54 | HP ---
PRIMARY CARE PROVIDER: Dr. Nj. PRIMARY PARTS DESIGNER: Dr. Mcdonough. CHIEF COMPLAINT: Shortness of breath. HISTORY OF PRESENT ILLNESS: This is a 78-year-old female, who presents to [facility] Emergency Department, complaining of approximately 24-hour history of increased shortness of breath, worse with exertion in the context of known congestive heart failure with combined systolic and diastolic dysfunction. The patient with recent admission to [facility] in October for heart failure exacerbation as well as deconditioning requiring usp facility placement. The patient states she had been doing well until her recent discharge from usp care, returning to home with [facility] including Physical Therapy twice weekly. The patient states she underwent physical therapy session in the last 48 hours, developing increased dyspnea and lower extremity swelling. The patient denies any specific dietary indiscretion, fever, chills, or prominent cough. The patient denies any home oxygen use and states she has been increasing her ambulation with a rolling walker without falls. In the emergency room, the patient underwent general evaluation including chest imaging showing mild cardiomegaly with left-sided AICD device. The patient received one amp of D50, Novolin R, and Zofran for hyperkalemia and mild acute kidney injury. Initial potassium was noted at 5.4, decreasing to 4.7 with therapy. The patient was also noted with elevated creatinine of 2.0 with most recent creatinine on 12/20/2018, showing a level of 0.49. PAST MEDICAL HISTORY: 1. Acute on chronic combined diastolic and systolic congestive heart failure with ejection fraction of 40% to 45%. 2. Paroxysmal atrial fibrillation with chronic anticoagulation with Coumadin. 3. Coronary artery disease. 4. Hypertension. 5. Dyslipidemia. 6. Gastroesophageal reflux disease. 7. Osteoarthritis. 8. Depression and anxiety. 9. History of breast cancer. 10. Morbid obesity. 11. Severe mitral and tricuspid valve regurgitation. 12. Chronic normocytic normochromic anemia. PAST SURGICAL HISTORY: 1. Status post right mastectomy. 2. Status post bilateral total knee arthroplasty. 3. Status post partial hysterectomy. 4. Status post coronary angioplasty with pacemaker placement. CURRENT MEDICATIONS: 1. Anastrozole 1 mg p.o. daily. 2. Calcium carbonate with vitamin D3 one tablet p.o. daily. 3. Fluoxetine 20 mg p.o. daily. 4. Arnuity Ellipta one inhalation b.i.d. 5. Lasix 80 mg p.o. q.a.m. and 40 mg p.o. at bedtime. 6. Lorazepam 1 mg p.o. daily p.r.n. anxiety. 7. Omeprazole 40 mg p.o. daily. 8. Pravachol 40 mg p.o. at bedtime. 9. Coumadin 5 mg p.o. daily. ALLERGIES: 1. HARJINDER INHIBITORS. 2. METOPROLOL. 3. PENICILLIN. 4. CIPROFLOXACIN. FAMILY HISTORY: Positive for hypertension and coronary artery disease. SOCIAL HISTORY: Resides in [place], [place]. Ambulates with the use of a rolling walker or cane. No current alcohol, tobacco, or illicit drug use. REVIEW OF SYSTEMS: CONSTITUTIONAL: Negative for weight loss or gain, ability to conduct usual activities. SKIN: Negative for rash, itching. EYES: Negative for double vision, pain. ENT/MOUTH: Negative for nose bleeding, neck stiffness, pain, tenderness. CARDIOVASCULAR: Negative for palpitations, dyspnea on exertion, orthopnea. RESPIRATORY: Negative for shortness of breath, wheezing, cough, hemoptysis, fever or night sweats. GASTROINTESTINAL: Negative for poor appetite, abdominal pain, heartburn, nausea, vomiting, constipation, or diarrhea. GENITOURINARY: Negative for urgency, frequency, dysuria, nocturia. MUSCULOSKELETAL: Negative for pain, swelling. NEUROLOGIC/PSYCHIATRIC: Negative for anxiety, depression. ALLERGY/IMMUNOLOGIC: Negative for skin rash, bleeding tendency. Otherwise, negative except as stated per HPI. PHYSICAL EXAMINATION: VITAL SIGNS: On admission; blood pressure 105/63, pulse 73, respiratory rate 24, temperature 97.7 degrees Fahrenheit, and O2 saturations 100% on room air. GENERAL APPEARANCE: This is a 78-year-old, female, alert and oriented x3, pleasant, in no acute distress. HEENT: Pupils are equal, round, reactive to light and accommodation. Extraocular muscles are intact. No scleral icterus. No conjunctival injection. Nares are patent. OP is clear. Teeth in poor repair. NECK: Supple. No cervical adenopathy. No thyromegaly. No carotid bruits. No JVD appreciated. Cervical spine with full active and passive range of motion. No meningeal signs noted. CHEST: Diminished breath sounds in the bases bilaterally. Bibasilar crackles noted. CARDIOVASCULAR: S1 and S2 with 1 to 2/6 systolic ejection murmur in the left sternal border and apex. ABDOMEN: Obese, soft, without tenderness to palpation. Landmarks are difficult to palpate due to the patient's body habitus. Bowel sounds are positive in all 4 quadrants. EXTREMITIES: Warm and dry with fair turgor. Pitting edema to the proximal shins bilaterally. Pulses palpable distally at the dorsalis pedis, posterior tibial, and popliteal arteries bilaterally. Capillary refill less than 2 seconds. NEUROLOGIC: Cranial nerves 2 through 12 are grossly intact. No focal or lateralizing signs appreciated. PERTINENT LAB AND X-RAY FINDINGS: Sodium 135, potassium ranged between 4.7 to 5.4, chloride 102, CO2 of 22, BUN 35, creatinine 2.0. Estimated GFR of 29, previous estimated GFR on 12/20/2018 at 70. Calcium 9.1, magnesium 1.8. CBC showed a white blood cell count of 4.8, hemoglobin 9.3, hematocrit 31, MCV 75, platelet count 305, with normal differential. AST 142, ALT of 56, total bilirubin 1.3. BNP 1022, previously noted 664 on 12/19/2018. Troponin negative x1. TSH 3.2. EKG dated 12/30/2018, by my interpretation shows a paced rhythm in the 60s to 70s. Dual chamber pacer with normal capture noted. No acute ST-T wave changes noted. ASSESSMENT AND PLAN: 1. Acute on chronic combined congestive heart failure with ejection fraction of 40% to 45%. We will continue Lasix 40 mg IV b.i.d. Serial weights and intake and outputs. Most recent 2D transthoracic echocardiogram on 11/27/2018, showed ejection fraction of 40% to 45%. Continue to diurese and monitor clinical response. 2. Acute kidney injury on chronic kidney disease, stage 2. We will avoid nephrotoxic agents and limit contrast exposure. Repeat creatinine in the a.m. Hold HARJINDER inhibitors. 3. Hyperkalemia. Suspect secondary to acute kidney injury. Improved currently. Serial potassium monitoring. 4. Transaminitis. Suspect secondary to volume overload in the context of #1. Repeat LFTs and monitor trend. 5. Chronic microcytic anemia. No current evidence to suggest acute blood loss. Repeat CBC and monitor clinically. 6. Hyperkalemia. Resolved after medical management. Repeat potassium level in the a.m. 7. Deconditioning. Obtain PT evaluation for functional assessment. General fall risk precautions. 8. Prophylaxis. SCDs while in bed. Pepcid 20 mg p.o. b.i.d. 9. Code status is full. Surrogate medical decision maker is the patient's daughter. Job ID: [id number]
[2018-12-30] MEDS ORDERED: FLUTICASONE FUROATE IH SCH (21:00)
[2018-12-31 05:41] LABS: Band 1 % (5-11); Eosinophils 4 % (0-10); Hemoglobin 8.5 g/dL (12.0-16.0); Hypochromia SLIGHT = 6-15 cells (100X) (0-5/hpf); Lymphocytes 15 % (21-51); MDiff Complete? YES; Mean Corpuscular HGB CONC 29.9 g/dL (32.0-36.0); Mean Corpuscular Hemoglobin 23.6 pg (27.0-31.0); Mean Corpuscular Volume 78.8 fL (78.0-98.0); Monocytes 22 % (0-10); Neutrophil 56 % (42-75); Nucleated RBC 1 % (0); Platelet Count 281 thou/uL (130-400); Platelet Morphology Comment Appears Adequate; RBC Distribution Width 17.8 % (11.5-14.5); White Blood Cell (WBC) Count 4.1 thou/uL (4.8-10.8)
[2018-12-31 05:46] LABS: Anion Gap 12 mmol/L (10-20); BUN (Urea Nitrogen) 33 mg/dL (9.8-20.1); Calc. Creatinine Clearance 60 mL/min (70-130); Calcium 8.6 mg/dL (7.8-10.44); Carbon Dioxide 25 mmol/L (23-31); Chloride 102 mmol/L (98-107); Estimated GFR-MDRD 36; Glucose 69 mg/dL (83-110); Potassium 3.8 mmol/L (3.5-5.1); Sodium 135 mmol/L (136-145)
[2018-12-31] MEDS: Furosemide 40 MG/4 ML VIAL SLOW IVP SCH ×2 (05:46→13:57)
[2018-12-31] MEDS: Famotidine 20 MG TAB PO SCH (10:02)
[2018-12-31] MEDS: FLUoxetine HCl 20 MG CAP PO SCH (10:02)
[2018-12-31] MEDS: Flecainide 50 MG TAB PO SCH ×2 (10:02→20:48)
[2018-12-31] MEDS: Calcium Carbonate + Vit D 1 TAB PO SCH (10:03)
[2018-12-31] MEDS: Docusate 100 MG CAP PO SCH ×2 (10:03→20:48)
[2018-12-31] MEDS: Anastrozole 1 MG TAB PO SCH (10:03)
[2018-12-31 11:37] LABS: INR-International Normal Ratio 14.4
[2018-12-31] MEDS ORDERED: Phytonadione 10 MG/ML AMP PO SCH (12:45)
[2018-12-31] MEDS: Mometasone Furoate 120 PUFF 220 MCG INH SCH (19:29)
[2018-12-31] MEDS ORDERED: ALPRAZolam 0.25 MG TAB PO SCH (20:30)
[2018-12-31] MEDS: Atorvastatin Calcium 10 MG TAB PO SCH (20:48)
--- NOTE | 2018-12-31 22:28 | PDOC.PN ---
- Subjective Encounter Start Date: 12/31/18 Encounter Start Time: 10:00 Subjective: pt up in bed feels sob - Objective Resuscitation Status - Order Detail: 12/30/18 14:06 Resuscitation Status Routine Resuscitation Status: FULL: Full Resuscitation Vital Signs & Weight: Vital Signs (12 hours) Temp Pulse Resp BP Pulse Ox 12/31/18 19:44 97.9 F 68 18 121/58 L 97 12/31/18 15:51 97.7 F 67 20 125/59 L 96 12/31/18 11:23 97.7 F 70 16 152/67 H 98 Weight Weight 291 lb I&O: 12/30/18 12/31/18 01/01/19 06:59 06:59 06:59 Intake Total 1550 Output Total 400 2050 Balance -400 -500 Result Diagrams: 12/31/18 04:40 12/31/18 04:40 Phys Exam - Physical Examination Neck: no nodes, no JVD, supple, full ROM mild crackles to base Cardiovascular: RRR, no significant murmur, no rub, gallop, irregular Gastrointestinal: soft, non-tender, no distention, positive bowel sounds Musculoskeletal: edema present Dx/Plan (1) Acute on chronic diastolic ACC/AHA stage C congestive heart failure Code(s): I50.33 - ACUTE ON CHRONIC DIASTOLIC (CONGESTIVE) HEART FAILURE Status : Acute (2) Supratherapeutic INR Code(s): R79.1 - ABNORMAL COAGULATION PROFILE Status: Acute (3) Paroxysmal atrial fibrillation Code(s): I48.0 - PAROXYSMAL ATRIAL FIBRILLATION Status: Acute Comment: (4) Severe mitral regurgitation Code(s): I34.0 - NONRHEUMATIC MITRAL (VALVE) INSUFFICIENCY Status: Chronic Comment: (5) Severe tricuspid valve regurgitation Code(s): I07.1 - RHEUMATIC TRICUSPID INSUFFICIENCY Status: Chronic Comment: (6) Acute renal failure superimposed on stage 3 chronic kidney disease Code(s): N17.9 - ACUTE KIDNEY FAILURE, UNSPECIFIED; N18.3 - CHRONIC KIDNEY DISEASE, STAGE 3 (MODERATE) Status: Acute - Plan pt's inr is 14, will give a dose of vit k, no overt sign of bleeding. -: will continue lasix, pt has severe TR/MR, -: creatinine continues to improve. check labs in am * . Review of Systems - Review of Systems Respiratory: Shortness of Breath. negative: Cough, Dry, Hemoptysis, SOB with Excertion, Pleuritic Pain, Sputum, Wheezing Cardiovascular: negative: chest pain, palpitations, orthopnea, paroxysmal nocturnal dyspnea, edema, light headedness, other - Medications/Allergies Allergies/Adverse Reactions: Allergies Allergy/AdvReac Type Severity Reaction Status Date / Time HARJINDER Inhibitors Allergy swelling Verified 12/06/18 16:03 aspirin Allergy "messed Verified 12/06/18 16:03 with my acid reflux" ciprofloxacin Allergy "made me Verified 12/06/18 16:03 itch" metoprolol [From Lopressor] Allergy Verified 12/06/18 16:03 Penicillins Allergy "i break Verified 12/06/18 16:03 out" Medications: Current Medications Acetaminophen (Tylenol) 1,000 mg PO Q6H PRN PRN Reason: Mild Pain (1-3) Anastrozole (Arimidex) 1 mg PO DAILY [facility] Last Admin: 12/31/18 10:03 Dose: 1 mg Atorvastatin Calcium (Lipitor) 10 mg PO HS [facility] Last Admin: 12/31/18 20:48 Dose: 10 mg Calcium/Vitamin D (Caltrate 600 + Vit D) 1 tab PO DAILY [facility] Last Admin: 12/31/18 10:03 Dose: 1 tab Clonidine (Catapres) 0.1 mg PO Q4H PRN PRN Reason: SBP > ____ Docusate Sodium (Colace) 100 mg PO BID [facility] Last Admin: 12/31/18 20:48 Dose: 100 mg Famotidine (Pepcid) 20 mg PO DAILY [facility] Last Admin: 12/31/18 10:02 Dose: 20 mg Flecainide Acetate (Tambocor) 100 mg PO BID [facility] Last Admin: 12/31/18 20:48 Dose: 100 mg Fluoxetine HCl (Prozac) 20 mg PO DAILY [facility] Last Admin: 12/31/18 10:02 Dose: 20 mg Furosemide (Lasix) 40 mg SLOW IVP 0600,1400 [facility] Last Admin: 12/31/18 13:57 Dose: 40 mg Hydralazine HCl (Apresoline) 10 mg SLOW IVP Q4H PRN PRN Reason: SBP > 180 and HR < 70 Mometasone Furoate (Asmanex Twisthaler) 1 puff INH 1830 [facility] Last Admin: 12/31/18 19:29 Dose: 1 puff Ondansetron HCl (Zofran Odt) 4 mg PO Q6H PRN PRN Reason: Nausea/Vomiting Ondansetron HCl (Zofran) 4 mg IVP Q6H PRN PRN Reason: Nausea/Vomiting
[2019-01-01] MEDS: Furosemide 40 MG/4 ML VIAL SLOW IVP SCH ×2 (05:23→14:06)
[2019-01-01 05:29] LABS: Prothrombin Time 39.3 SEC (12.0-14.7)
[2019-01-01 05:35] LABS: INR-International Normal Ratio 4.1
[2019-01-01 06:03] LABS: Hemoglobin 8.7 g/dL (12.0-16.0); Hypochromia SLIGHT = 6-15 cells (100X) (0-5/hpf); Lymphocytes 23 % (21-51); MDiff Complete? YES; Mean Corpuscular HGB CONC 30.4 g/dL (32.0-36.0); Mean Corpuscular Hemoglobin 23.8 pg (27.0-31.0); Mean Corpuscular Volume 78.5 fL (78.0-98.0); Mean Platelet Volume 9.2 fL (7.4-10.4); Monocytes 4 % (0-10); Neutrophil 73 % (42-75); Platelet Count 288 thou/uL (130-400); Platelet Morphology Comment Appears Adequate; RBC Distribution Width 17.9 % (11.5-14.5); Red Blood Cell (RBC) Count 3.65 mill/uL (4.20-5.40); White Blood Cell (WBC) Count 3.8 thou/uL (4.8-10.8)
[2019-01-01] MEDS: Flecainide 50 MG TAB PO SCH ×2 (08:49→20:38)
[2019-01-01] MEDS: FLUoxetine HCl 20 MG CAP PO SCH (08:49)
[2019-01-01] MEDS: Calcium Carbonate + Vit D 1 TAB PO SCH (08:49)
[2019-01-01] MEDS: Docusate 100 MG CAP PO SCH ×2 (08:50→20:38)
[2019-01-01] MEDS: Anastrozole 1 MG TAB PO SCH (08:50)
[2019-01-01] MEDS: Famotidine 20 MG TAB PO SCH (08:50)
--- NOTE | 2019-01-01 11:44 | PDOC.PN ---
- Subjective Encounter Start Date: 01/01/19 Encounter Start Time: 11:42 Doing ok. Breathing a little better. Still has significant LE edema. IV Lasix is working better for her. - Objective Resuscitation Status - Order Detail: 12/30/18 14:06 Resuscitation Status Routine Resuscitation Status: FULL: Full Resuscitation Vital Signs & Weight: Vital Signs (12 hours) Temp Pulse Pulse Pulse Resp BP BP 01/01/19 09:05 64 84 110/51 L 97/53 L 01/01/19 08:00 01/01/19 07:28 98.4 F 61 20 01/01/19 03:38 98.2 F 65 16 12/31/18 23:49 BP Pulse Ox 01/01/19 09:05 01/01/19 08:00 96 01/01/19 07:28 119/70 96 01/01/19 03:38 118/67 95 12/31/18 23:49 98 Weight Weight 291 lb I&O: 12/31/18 01/01/19 01/02/19 06:59 06:59 06:59 Intake Total 1550 480 Output Total 400 2050 200 Balance -400 -500 280 Result Diagrams: 01/01/19 04:23 12/31/18 04:40 Phys Exam - Physical Examination Constitutional: NAD Sitting up in chair. Respiratory: no wheezing, no rhonchi Mild basilar rales bilaterally. II/ M Gastrointestinal: soft, non-tender, no distention 2+-3+ pitting edema BLE's. Neurological: non-focal Psychiatric: normal affect, A&O x 3 Dx/Plan (1) Supratherapeutic INR Code(s): R79.1 - ABNORMAL COAGULATION PROFILE Status: Acute (2) Acute on chronic diastolic ACC/AHA stage C congestive heart failure Code(s): I50.33 - ACUTE ON CHRONIC DIASTOLIC (CONGESTIVE) HEART FAILURE Status : Acute (3) Acute renal failure superimposed on stage 3 chronic kidney disease Code(s): N17.9 - ACUTE KIDNEY FAILURE, UNSPECIFIED; N18.3 - CHRONIC KIDNEY DISEASE, STAGE 3 (MODERATE) Status: Acute (4) Hyponatremia Code(s): E87.1 - HYPO-OSMOLALITY AND HYPONATREMIA Status: Acute Comment: (5) Paroxysmal atrial fibrillation Code(s): I48.0 - PAROXYSMAL ATRIAL FIBRILLATION Status: Acute Comment: (6) CAD (coronary artery disease) Code(s): I25.10 - ATHSCL HEART DISEASE OF [place] CORONARY ARTERY W/O ANG PCTRS Status: Chronic Comment: stable (7) Chronic anticoagulation Code(s): Z79.01 - IMMUNOLOGY TEACHER (CURRENT) USE OF ANTICOAGULANTS Status: Chronic (8) Morbid obesity with BMI of 45.0-49.9, adult Code(s): E66.01 - MORBID (SEVERE) OBESITY DUE TO EXCESS CALORIES; Z68.42 - BODY MASS INDEX (BMI) 45.0-49.9, ADULT Status: Chronic (9) Severe mitral regurgitation Code(s): I34.0 - NONRHEUMATIC MITRAL (VALVE) INSUFFICIENCY Status: Chronic Comment: (10) Severe tricuspid valve regurgitation Code(s): I07.1 - RHEUMATIC TRICUSPID INSUFFICIENCY Status: Chronic Comment: (11) Anemia, chronic renal failure Code(s): N18.9 - CHRONIC KIDNEY DISEASE, UNSPECIFIED; D63.1 - ANEMIA IN CHRONIC KIDNEY DISEASE Status: Acute - Plan * Clarified...she has PPM, not AICD. * Continue IV Lasix in light of the persistent LE edema and basilar rales. * Likely a the valve disease contributing more than then EF. * Renal function close to baseline. * Hyponatremia is chronic and stable. * INR much improved. Recheck tomorrow.
[2019-01-01] MEDS ORDERED: Warfarin Sodium 2.5 MG TAB PO SCH (17:00)
[2019-01-01] MEDS: Mometasone Furoate 120 PUFF 220 MCG INH SCH (19:24)
[2019-01-01] MEDS: Atorvastatin Calcium 10 MG TAB PO SCH (20:38)
[2019-01-01] MEDS: Milk Of Magnesia 30 ML UDCUP PO PRN (20:39)
[2019-01-02] MEDS: Furosemide 40 MG/4 ML VIAL SLOW IVP SCH ×2 (05:21→14:00)
[2019-01-02 06:43] LABS: #Eosinphils 0.2 thou/uL (0.0-0.7); #Lymphocytes 1.4 thou/uL (1.20-3.40); #Monocytes 0.7 thou/uL (0.11-0.59); #Neutrophils 2.6 thou/uL (1.40-6.50); %Basophils 0.7 % (0.0-1.0); %Eosinophils 3.7 % (0.0-10.0); %Monocytes 14.3 % (0.0-10.0); %Neutrophils 52.4 % (42.0-75.0); Hemoglobin 9.1 g/dL (12.0-16.0); Mean Corpuscular HGB CONC 30.6 g/dL (32.0-36.0); Mean Corpuscular Hemoglobin 23.6 pg (27.0-31.0); Mean Corpuscular Volume 77.2 fL (78.0-98.0); Mean Platelet Volume 8.8 fL (7.4-10.4); Platelet Count 288 thou/uL (130-400); RBC Distribution Width 18.2 % (11.5-14.5); Red Blood Cell (RBC) Count 3.85 mill/uL (4.20-5.40); White Blood Cell (WBC) Count 4.9 thou/uL (4.8-10.8)
[2019-01-02 06:46] LABS: INR-International Normal Ratio 2.2; Prothrombin Time 24.1 SEC (12.0-14.7)
[2019-01-02 06:47] LABS: PTT 48.7 SEC (22.9-36.1)
[2019-01-02 08:02] LABS: Elliptocytes SLIGHT = 2-5 cells (100X) (0-1/hpf); Hypochromia SLIGHT = 6-15 cells (100X) (0-5/hpf); MDiff Complete? YES; Microcytosis SLIGHT = 6-15 cells (100X) (0-5/hpf); Ovalocytes SLIGHT = 2-5 cells (100X) (0-1/hpf); Platelet Morphology Comment Appears Adequate; Polychromasia SLIGHT = 2-3 cells (100X) (0-2/hpf); Schistocytes SLIGHT = 2-5 cells (100X) (0-1/hpf)
[2019-01-02] MEDS: Famotidine 20 MG TAB PO SCH (08:26)
[2019-01-02] MEDS: Flecainide 50 MG TAB PO SCH ×2 (08:27→20:21)
[2019-01-02] MEDS: Docusate 100 MG CAP PO SCH ×2 (08:27→20:21)
[2019-01-02] MEDS: Anastrozole 1 MG TAB PO SCH (08:27)
[2019-01-02] MEDS: Calcium Carbonate + Vit D 1 TAB PO SCH (08:27)
[2019-01-02] MEDS: FLUoxetine HCl 20 MG CAP PO SCH (08:27)
--- NOTE | 2019-01-02 10:41 | PRG ---
DATE OF SERVICE: 01/02/2019 SUBJECTIVE: The patient feels relatively well today. She has no new complaints. She has no significant shortness of breath. Sleeping well. OBJECTIVE: VITAL SIGNS: Temperature 97.8, pulse 84, respirations 18 to 24, O2 saturation 95% to 98% on room air, blood pressure 117/56. GENERAL APPEARANCE: Age-appropriate female, in no distress. She is awake, alert, oriented, and pleasant. HEART: Regular with 2/6 murmur at the upper sternal borders. LUNGS: Have very minimal rales at the bases. ABDOMEN: Soft, nontender, and nondistended. EXTREMITIES: Have persistent 2+ pitting edema to the midcalf. SKIN: Warm and dry. NEURO: Intact. LABORATORY DATA: White count 4.9, hemoglobin 9.1, platelets 288, MCV 77.2. INR is 2.2. IMPRESSION AND PLAN: 1. Decompensated acute on chronic diastolic heart failure. The patient has additional severe mitral regurgitation and severe tricuspid regurgitation, which are likely contributing. The patient has been receiving IV diuresis. However, she is not avoiding significant amount. She is restricting her fluids, so I am going to go ahead and add some Zaroxolyn 5 mg prior to her Lasix doses and see if we can improve her diuresis a bit. Certainly, challenging given the severe valvular disease. However, this seems to be relatively new development of the peripheral edema. 2. Supratherapeutic INR. The patient is unclear how this might have happened. She did have this checked the week before and she says results are typically sent to Dr. Timmons. However, she does not see Dr. Timmons anymore. She is following with Dr. Box, and she never heard anything on the results of her INR. She had not changed her diet or been on any other new medications. She is back to therapeutic range today. We will resume her usual dose. 3. History of paroxysmal atrial fibrillation, well controlled. Continue the Coumadin as of today. 4. Anemia and chronic renal disease. The patient is noted to have microcytic anemia. She had her iron level last checked in 2014. We will recheck those in the morning. 5. Acute renal failure on chronic kidney disease, stage 3. Creatinine is improved. We will continue to monitor. Job ID: [id number] [facility]
[2019-01-02] MEDS: Metolazone 5 MG TAB PO SCH (14:00)
[2019-01-02] MEDS: Warfarin Sodium 5 MG TAB PO SCH (17:03)
--- NOTE | 2019-01-02 17:25 | CON ---
DATE OF CONSULTATION: 01/02/2019 REASON FOR CONSULTATION: Heart failure. HISTORY OF PRESENT ILLNESS: Ms. Vigil is very pleasant 78-year-old female, who comes to the hospital for increased shortness of breath. She was in the hospital about a month ago. She spent about 2 weeks in the hospital for a new onset cardiomyopathy, EF was about 40% to 45%. She had severe mitral regurgitation and severe tricuspid regurgitation. It was extremely hard to get fluids out with IV Lasix, had to be placed on IV dobutamine for several days to get some of this fluid out. Eventually, she did much better and was discharged to rehab and did quite well. She had to come back as she accumulated some of this fluid over the last few days. She became more short winded, so she had to come in for this. She has been getting IV Lasix and she is already feeling much better. When I walked into the room, she was actually walking around with her walker, which is something I have never seen or done before. She has had a big improvement in her physical ability just by going to rehab for a few weeks. She denies any chest pain, tightness, pressure. Her shortness of breath is much better. No fevers, chills. PAST MEDICAL HISTORY: 1. History of systolic heart failure with EF at 40% to 45%. 2. Severe mitral regurgitation. 3. Severe tricuspid regurgitation. 4. Paroxysmal atrial fibrillation, on chronic anticoagulation with Coumadin. 5. History of coronary artery disease. 6. Hypertension. 7. Hyperlipidemia. 8. GERD. 9. Osteoarthritis. 10. Anxiety and depression. 11. Breast cancer. 12. Morbid obesity. 13. Chronic anemia. SURGICAL HISTORY: 1. Right mastectomy. 2. Bilateral total knee replacement. 3. Partial hysterectomy. 4. Coronary angioplasty and pacemaker placement. OUTPATIENT MEDICATIONS: 1. Anastrozole 1 mg a day. 2. Calcium carbonate. 3. Fluoxetine. 4. Anoro Ellipta inhalation. 5. Lasix 80 mg in the morning and 40 mg in the evening. 6. Lorazepam. 7. Omeprazole. 8. Pravachol. 9. Coumadin 5 mg a day. ALLERGIES: 1. HARJINDER INHIBITORS. 2. METOPROLOL. 3. PENICILLIN. 4. CIPRO. FAMILY HISTORY: Positive for hypertension and coronary artery disease. SOCIAL HISTORY: No alcohol, tobacco, or drugs. REVIEW OF SYSTEMS: A 12-point review of systems was done and was all negative unless stated in the history of present illness. PHYSICAL EXAMINATION: VITAL SIGNS: Temperature 97.5, pulse 66, respiratory rate 20, sats 98% on room air, blood pressure 109/56. GENERAL: Awake, alert, oriented x3, no distress. HEENT: Normocephalic, atraumatic. NECK: Supple. LUNGS: Mostly clear. CARDIOVASCULAR: S1 and S2. No S3, S4. There is a grade 3/6 systolic murmur at the 4th intercostal space parasternal on the left and there is another holosystolic murmur at the apex. ABDOMEN: Soft. EXTREMITIES: 2+ edema. SKIN: Warm and dry. LABORATORY DATA: Laboratory work was reviewed. CBC with a white count of 4.9, hemoglobin 9.1, hematocrit 29, platelet count of 288. Coags were reviewed. Her INR on admission was 14.4, but is back down to 2.2. Chemistries; creatinine on admission was 2.0, but down to 1.6 now after diuresis. Potassium was normal. ASSESSMENT AND PLAN: 1. Acute on chronic systolic heart failure. 2. Severe mitral regurgitation. 3. Severe tricuspid regurgitation. 4. Grade 3/3 diastolic heart failure. PLAN: 1. Agreed with continued IV diuresis. She is actually looking much better than what she did on admission and is also improved significantly from the last time we saw her in the hospital. I would probably continue IV Lasix at 40 b.i.d. for the next 24 hours and then switch her to p.o. at 80 mg twice a day on Sunday and if she does well for 24 hours, then send her back to where she came from on Sunday. 2. Continue other medications for now. 3. Continue warfarin back to therapeutic range. Thank you for letting us participate in the care of your patient. We will follow. Job ID: [id number]
[2019-01-02] MEDS: Mometasone Furoate 120 PUFF 220 MCG INH SCH (18:44)
[2019-01-02] MEDS: Atorvastatin Calcium 10 MG TAB PO SCH (20:21)
[2019-01-03] MEDS: Milk Of Magnesia 30 ML UDCUP PO PRN (05:02)
[2019-01-03] MEDS: Furosemide 40 MG/4 ML VIAL SLOW IVP SCH ×2 (05:02→13:15)
[2019-01-03 05:48] LABS: #Eosinphils 0.2 thou/uL (0.0-0.7); #Lymphocytes 1.5 thou/uL (1.20-3.40); #Monocytes 0.8 thou/uL (0.11-0.59); #Neutrophils 3.1 thou/uL (1.40-6.50); %Basophils 0.4 % (0.0-1.0); %Eosinophils 3.7 % (0.0-10.0); %Lymphocytes 26.3 % (21.0-51.0); %Monocytes 14.4 % (0.0-10.0); %Neutrophils 55.3 % (42.0-75.0); Hemoglobin 9.2 g/dL (12.0-16.0); Mean Corpuscular HGB CONC 30.7 g/dL (32.0-36.0); Mean Corpuscular Hemoglobin 23.7 pg (27.0-31.0); Mean Corpuscular Volume 77.3 fL (78.0-98.0); Mean Platelet Volume 9.4 fL (7.4-10.4); Platelet Count 283 thou/uL (130-400); RBC Distribution Width 18.3 % (11.5-14.5); Red Blood Cell (RBC) Count 3.87 mill/uL (4.20-5.40); White Blood Cell (WBC) Count 5.5 thou/uL (4.8-10.8)
[2019-01-03 05:51] LABS: INR-International Normal Ratio 2.1; PTT 47.2 SEC (22.9-36.1); Prothrombin Time 23.4 SEC (12.0-14.7)
[2019-01-03 06:05] LABS: Anion Gap 12 mmol/L (10-20); BUN (Urea Nitrogen) 25 mg/dL (9.8-20.1); Calc. Creatinine Clearance 88 mL/min (70-130); Calcium 8.5 mg/dL (7.8-10.44); Carbon Dioxide 28 mmol/L (23-31); Chloride 96 mmol/L (98-107); Estimated GFR-MDRD 57; Glucose 80 mg/dL (83-110); Iron 28 ug/dL (50-170); Iron Binding Capacity, Total 373 mcg/dL (265-497); Sodium 133 mmol/L (136-145)
[2019-01-03 06:09] LABS: Potassium 2.9 mmol/L (3.5-5.1)
[2019-01-03] MEDS ORDERED: Potassium Chloride 20 MEQ TAB PO SCH ×2 (06:30→18:00)
[2019-01-03] MEDS: FLUoxetine HCl 20 MG CAP PO SCH (09:34)
[2019-01-03] MEDS: Anastrozole 1 MG TAB PO SCH (09:35)
[2019-01-03] MEDS: Metolazone 5 MG TAB PO SCH ×2 (09:35→13:15)
[2019-01-03] MEDS: Flecainide 50 MG TAB PO SCH ×2 (09:35→21:38)
[2019-01-03] MEDS: Famotidine 20 MG TAB PO SCH (09:36)
[2019-01-03] MEDS: Calcium Carbonate + Vit D 1 TAB PO SCH (09:36)
[2019-01-03] MEDS: Docusate 100 MG CAP PO SCH ×2 (09:36→21:37)
--- NOTE | 2019-01-03 16:16 | PDOC.CTH ---
Cardiology Progress Note - Subjective Doing well. Continues to diurese. Walking around without issues. - Objective Vital Signs Temp Pulse Pulse Resp BP BP Pulse Ox 01/03/19 15:00 97.4 F L 65 16 131/73 100 01/03/19 10:38 67 114/51 L 01/03/19 09:35 106/54 L 01/03/19 08:50 98 01/03/19 07:24 98.2 F 63 20 99/55 L 98 Weight 286 lb 12.8 oz 01/02/19 01/03/19 01/04/19 06:59 06:59 06:59 Intake Total 1200 1400 300 Output Total 1400 3700 1550 Balance -200 -2300 -1250 - Physical Examination General/Neuro: alert & oriented x3, NAD Neck: no JVD present Lungs: CTA, unlabored respirations Heart: RRR Abdomen: NT/ND Extremities: + edema B (2+) - Telemetry Telemetry Rhythm: NSR - Labs Result Diagrams: 01/03/19 04:42 01/03/19 04:42 - Assessment/Plan 1. Acute on chronic systolic heart failure. 2. Severe MR, severe TR 3. LVEF at 40-45% PLAN: - Continue IV diuresis today and tomorrow. - Switch to PO lasix Sunday. - Home next week if she continues to improve. - Replace Uriah
[2019-01-03] MEDS: Warfarin Sodium 5 MG TAB PO SCH (16:34)
[2019-01-03] MEDS ORDERED: Polyethylene Glycol 3350 17 GM Packet PO SCH (18:30)
[2019-01-03] MEDS: Atorvastatin Calcium 10 MG TAB PO SCH (21:37)
--- NOTE | 2019-01-03 21:49 | PDOC.PN ---
- Subjective Encounter Start Date: 01/03/19 Encounter Start Time: 09:30 Feels well. Ambulating with FOXER. No new complaints. - Objective Resuscitation Status - Order Detail: 12/30/18 14:06 Resuscitation Status Routine Resuscitation Status: FULL: Full Resuscitation Vital Signs & Weight: Vital Signs (12 hours) Temp Pulse Pulse Resp BP BP Pulse Ox 01/03/19 20:00 98.3 F 65 16 122/63 100 01/03/19 15:00 97.4 F L 65 16 131/73 100 01/03/19 10:38 67 114/51 L Weight Weight 286 lb 12.8 oz I&O: 01/02/19 01/03/19 01/04/19 06:59 06:59 06:59 Intake Total 1200 1400 300 Output Total 1400 3700 1550 Balance -200 -2300 -1250 Result Diagrams: 01/03/19 04:42 01/03/19 04:42 Phys Exam - Physical Examination Constitutional: NAD Respiratory: no wheezing, no rhonchi, clear to auscultation bilateral Very minimal rales bases. Cardiovascular: RRR II/ M Gastrointestinal: soft, non-tender, no distention Musculoskeletal: no edema Psychiatric: normal affect Dx/Plan (1) Acute on chronic diastolic ACC/AHA stage C congestive heart failure Code(s): I50.33 - ACUTE ON CHRONIC DIASTOLIC (CONGESTIVE) HEART FAILURE Status : Acute (2) Supratherapeutic INR Code(s): R79.1 - ABNORMAL COAGULATION PROFILE Status: Acute (3) Acute renal failure superimposed on stage 3 chronic kidney disease Code(s): N17.9 - ACUTE KIDNEY FAILURE, UNSPECIFIED; N18.3 - CHRONIC KIDNEY DISEASE, STAGE 3 (MODERATE) Status: Acute (4) Hyponatremia Code(s): E87.1 - HYPO-OSMOLALITY AND HYPONATREMIA Status: Acute Comment: (5) Paroxysmal atrial fibrillation Code(s): I48.0 - PAROXYSMAL ATRIAL FIBRILLATION Status: Acute Comment: (6) CAD (coronary artery disease) Code(s): I25.10 - ATHSCL HEART DISEASE OF [place] CORONARY ARTERY W/O ANG PCTRS Status: Chronic Comment: stable (7) Chronic anticoagulation Code(s): Z79.01 - FINANCIAL SERVICES SPECIALIST (CURRENT) USE OF ANTICOAGULANTS Status: Chronic (8) Morbid obesity with BMI of 45.0-49.9, adult Code(s): E66.01 - MORBID (SEVERE) OBESITY DUE TO EXCESS CALORIES; Z68.42 - BODY MASS INDEX (BMI) 45.0-49.9, ADULT Status: Chronic (9) Severe mitral regurgitation Code(s): I34.0 - NONRHEUMATIC MITRAL (VALVE) INSUFFICIENCY Status: Chronic Comment: (10) Severe tricuspid valve regurgitation Code(s): I07.1 - RHEUMATIC TRICUSPID INSUFFICIENCY Status: Chronic Comment: (11) Anemia, chronic renal failure Code(s): N18.9 - CHRONIC KIDNEY DISEASE, UNSPECIFIED; D63.1 - ANEMIA IN CHRONIC KIDNEY DISEASE Status: Acute - Plan * Zaroxolyn helped significantly. * Edema is improving. * Continue with Lasix and Zaroxolyn. * Cardiology following. * Replace potassium and give additional as she continues to diurese. * Renal function improved. * INR in range.
[2019-01-03] MEDS: Mometasone Furoate 120 PUFF 220 MCG INH SCH (21:59)
[2019-01-04 05:48] LABS: INR-International Normal Ratio 2.2; PTT 47.7 SEC (22.9-36.1); Prothrombin Time 24.7 SEC (12.0-14.7)
[2019-01-04 05:54] LABS: #Basophils 0.1 thou/uL (0.0-0.2); #Eosinphils 0.2 thou/uL (0.0-0.7); #Lymphocytes 1.6 thou/uL (1.20-3.40); #Monocytes 0.8 thou/uL (0.11-0.59); #Neutrophils 2.7 thou/uL (1.40-6.50); %Eosinophils 3.8 % (0.0-10.0); %Lymphocytes 30.5 % (21.0-51.0); %Monocytes 14.4 % (0.0-10.0); %Neutrophils 50.3 % (42.0-75.0); Hemoglobin 9.4 g/dL (12.0-16.0); Mean Corpuscular HGB CONC 31.1 g/dL (32.0-36.0); Mean Corpuscular Hemoglobin 23.8 pg (27.0-31.0); Mean Corpuscular Volume 76.5 fL (78.0-98.0); Mean Platelet Volume 9.2 fL (7.4-10.4); Platelet Count 271 thou/uL (130-400); Red Blood Cell (RBC) Count 3.96 mill/uL (4.20-5.40); White Blood Cell (WBC) Count 5.4 thou/uL (4.8-10.8)
[2019-01-04 06:03] LABS: Anion Gap 12 mmol/L (10-20); BUN (Urea Nitrogen) 23 mg/dL (9.8-20.1); Calc. Creatinine Clearance 85 mL/min (70-130); Calcium 8.9 mg/dL (7.8-10.44); Carbon Dioxide 31 mmol/L (23-31); Chloride 94 mmol/L (98-107); Estimated GFR-MDRD 56; Glucose 90 mg/dL (83-110); Potassium 3.3 mmol/L (3.5-5.1); Sodium 134 mmol/L (136-145)
[2019-01-04] MEDS ORDERED: Furosemide 80 MG TAB PO SCH (07:00)
[2019-01-04] MEDS: Furosemide 40 MG/4 ML VIAL SLOW IVP SCH ×2 (07:17→14:45)
[2019-01-04] MEDS: FLUoxetine HCl 20 MG CAP PO SCH (10:11)
[2019-01-04] MEDS: Famotidine 20 MG TAB PO SCH (10:11)
[2019-01-04] MEDS: Anastrozole 1 MG TAB PO SCH (10:12)
[2019-01-04] MEDS: Flecainide 50 MG TAB PO SCH ×2 (10:12→20:41)
[2019-01-04] MEDS: Metolazone 5 MG TAB PO SCH ×2 (10:12→14:44)
[2019-01-04] MEDS: Calcium Carbonate + Vit D 1 TAB PO SCH (10:13)
[2019-01-04] MEDS: Docusate 100 MG CAP PO SCH ×2 (10:13→20:41)
[2019-01-04] MEDS ORDERED: Potassium Chloride 20 MEQ TAB PO SCH (14:00)
--- NOTE | 2019-01-04 15:29 | PDOC.PN ---
- Subjective Encounter Start Date: 01/04/19 Encounter Start Time: 14:00 Feels ok. No new complaints. - Objective Resuscitation Status - Order Detail: 12/30/18 14:06 Resuscitation Status Routine Resuscitation Status: FULL: Full Resuscitation Vital Signs & Weight: Vital Signs (12 hours) Temp Pulse Resp BP Pulse Ox 01/04/19 08:07 98.2 F 68 18 136/58 L 99 01/04/19 04:00 98.5 F 67 16 104/54 L 98 Weight Weight 280 lb 11.2 oz I&O: 01/03/19 01/04/19 01/05/19 06:59 06:59 06:59 Intake Total 1400 300 300 Output Total 3700 1550 Balance -2300 -1250 300 Result Diagrams: 01/04/19 05:30 01/04/19 05:30 Phys Exam - Physical Examination Constitutional: NAD Obese. Some mild temporal muscle thinning. Respiratory: no wheezing, no rales, no rhonchi, clear to auscultation bilateral Cardiovascular: RRR II/ LUSB Gastrointestinal: soft, non-tender, no distention, positive bowel sounds 2+ edema BLE's. Slightly better than yesterday. Neurological: non-focal Psychiatric: normal affect, A&O x 3 Dx/Plan (1) Acute on chronic diastolic ACC/AHA stage C congestive heart failure Code(s): I50.33 - ACUTE ON CHRONIC DIASTOLIC (CONGESTIVE) HEART FAILURE Status : Acute (2) Supratherapeutic INR Code(s): R79.1 - ABNORMAL COAGULATION PROFILE Status: Acute (3) Acute renal failure superimposed on stage 3 chronic kidney disease Code(s): N17.9 - ACUTE KIDNEY FAILURE, UNSPECIFIED; N18.3 - CHRONIC KIDNEY DISEASE, STAGE 3 (MODERATE) Status: Acute (4) Hyponatremia Code(s): E87.1 - HYPO-OSMOLALITY AND HYPONATREMIA Status: Acute Comment: (5) Paroxysmal atrial fibrillation Code(s): I48.0 - PAROXYSMAL ATRIAL FIBRILLATION Status: Acute Comment: (6) CAD (coronary artery disease) Code(s): I25.10 - ATHSCL HEART DISEASE OF [place] CORONARY ARTERY W/O ANG PCTRS Status: Chronic Comment: stable (7) Chronic anticoagulation Code(s): Z79.01 - COOLER SERVICE SUPERVISOR (CURRENT) USE OF ANTICOAGULANTS Status: Chronic (8) Morbid obesity with BMI of 45.0-49.9, adult Code(s): E66.01 - MORBID (SEVERE) OBESITY DUE TO EXCESS CALORIES; Z68.42 - BODY MASS INDEX (BMI) 45.0-49.9, ADULT Status: Chronic (9) Severe mitral regurgitation Code(s): I34.0 - NONRHEUMATIC MITRAL (VALVE) INSUFFICIENCY Status: Chronic Comment: (10) Severe tricuspid valve regurgitation Code(s): I07.1 - RHEUMATIC TRICUSPID INSUFFICIENCY Status: Chronic Comment: (11) Anemia, chronic renal failure Code(s): N18.9 - CHRONIC KIDNEY DISEASE, UNSPECIFIED; D63.1 - ANEMIA IN CHRONIC KIDNEY DISEASE Status: Acute - Plan * Potassium repletion today. * Continue with IV diuresis today. Will change to po tomorrow. * Monitor renal function. * Possible DC on Sunday. * Back on warfarin and therapeutic.
[2019-01-04] MEDS: Warfarin Sodium 5 MG TAB PO SCH (18:00)
[2019-01-04] MEDS: Mometasone Furoate 120 PUFF 220 MCG INH SCH (18:58)
[2019-01-04] MEDS: Atorvastatin Calcium 10 MG TAB PO SCH (20:41)
[2019-01-05] MEDS: Furosemide 40 MG/4 ML VIAL SLOW IVP SCH (05:56)
[2019-01-05 06:10] LABS: INR-International Normal Ratio 2.3; PTT 44.9 SEC (22.9-36.1); Prothrombin Time 25.3 SEC (12.0-14.7)
[2019-01-05 06:21] LABS: ALT (SGPT) 26 U/L (8-55); AST (SGOT) 47 U/L (5-34); Albumin 2.8 g/dL (3.4-4.8); Alkaline Phosphatase 89 U/L (40-150); Anion Gap 13 mmol/L (10-20); BUN (Urea Nitrogen) 23 mg/dL (9.8-20.1); Bilirubin, Total 1.2 mg/dL (0.2-1.2); Calc. Creatinine Clearance 82 mL/min (70-130); Calcium 8.6 mg/dL (7.8-10.44); Carbon Dioxide 29 mmol/L (23-31); Chloride 93 mmol/L (98-107); Estimated GFR-MDRD 56; Globulin 3.1 g/dL (2.4-3.5); Glucose 74 mg/dL (83-110); Protein, Total 5.9 g/dL (6.0-8.3); Sodium 132 mmol/L (136-145)
[2019-01-05 07:46] LABS: Band 1 % (5-11); Eosinophils 3 % (0-10); Hemoglobin 8.9 g/dL (12.0-16.0); Lymphocytes 32 % (21-51); MDiff Complete? YES; Mean Corpuscular HGB CONC 30.8 g/dL (32.0-36.0); Mean Corpuscular Hemoglobin 24.1 pg (27.0-31.0); Mean Corpuscular Volume 78.1 fL (78.0-98.0); Mean Platelet Volume 9.2 fL (7.4-10.4); Monocytes 13 % (0-10); Neutrophil 48 % (42-75); Platelet Count 253 thou/uL (130-400); RBC Distribution Width 19.4 % (11.5-14.5); Reactive Lymphocytes 1 % (0-10); Red Blood Cell (RBC) Count 3.69 mill/uL (4.20-5.40); White Blood Cell (WBC) Count 4.5 thou/uL (4.8-10.8)
[2019-01-05] MEDS: Metolazone 5 MG TAB PO SCH ×2 (08:31→13:36)
[2019-01-05] MEDS: FLUoxetine HCl 20 MG CAP PO SCH (08:32)
[2019-01-05] MEDS: Famotidine 20 MG TAB PO SCH (08:32)
[2019-01-05] MEDS: Flecainide 50 MG TAB PO SCH ×2 (08:32→20:01)
[2019-01-05] MEDS: Anastrozole 1 MG TAB PO SCH (08:32)
[2019-01-05] MEDS: Calcium Carbonate + Vit D 1 TAB PO SCH (08:32)
[2019-01-05] MEDS: Docusate 100 MG CAP PO SCH ×2 (08:32→20:01)
[2019-01-05] MEDS ORDERED: Potassium Chloride 20 MEQ TAB PO SCH (09:00)
[2019-01-05] MEDS ORDERED: Melatonin 3 MG TAB PO PRN (13:05)
--- NOTE | 2019-01-05 13:30 | PRG ---
DATE OF SERVICE: 01/05/2019 SUBJECTIVE: The patient's only complaint is that she was not able to sleep well last night for no particular reason, just could not fall asleep. Otherwise, she is doing well. OBJECTIVE: VITAL SIGNS: Temperature 98.3, pulse 63, respirations 20, O2 saturation 99% on room air, and BP 113/53 up to 130/60. GENERAL APPEARANCE: Age-appropriate female, in no distress. Awake and alert. Dressed in street clothes, sitting up in chair. HEART: Regular with a 2/6 murmur left upper sternal border. LUNGS: Clear bilaterally. ABDOMEN: Obese, soft, nontender, and nondistended. Lower extremities have persistent 2+ pitting edema, although continues to improve very slightly every day. MUSCULOSKELETAL: Reveals some temporalis muscle wasting. I's and O's, she is down 13 pounds and was out another 550 mL yesterday. IMPRESSION AND PLAN: 1. This patient has decompensated acute on chronic systolic stage 3 congestive heart failure as well as severe mitral regurgitation and severe tricuspid regurgitation. The patient has been on IV diuresis. We have added Zaroxolyn in order to improve on the diuresis, which seems to have been effective at this point, going to switch her off the IV Lasix back to p.o. Lasix at 80 mg b.i.d., which is higher than her dose when she initially presented, which was 40 and 80. This is per Dr. Rushing's plan. She has again lost about 13 pounds of fluid. Anticipate discharging her tomorrow with the higher dose of Lasix and the additional Zaroxolyn prescription, so that she can continue to diurese at home. 2. Acute renal failure superimposed on stage 3 chronic kidney disease. Her renal function has continued to improve with treatment of the heart failure and appears to be back at her baseline and stable. 3. Hypokalemia. The patient is requiring a fair amount of potassium repletion. We will go ahead and give scheduled 40 mg b.i.d. and recheck in the morning. 4. History of paroxysmal atrial fibrillation. She is back on warfarin therapeutic. 5. History of stable coronary artery disease. 6. Chronic anemia in renal disease. Job ID: [id number]
[2019-01-05] MEDS: Furosemide 80 MG TAB PO SCH (13:36)
[2019-01-05] MEDS ORDERED: Furosemide 20 MG TAB PO SCH (14:00)
[2019-01-05] MEDS: Potassium Chloride 20 MEQ TAB PO SCH (18:04)
[2019-01-05] MEDS: Warfarin Sodium 5 MG TAB PO SCH (18:04)
[2019-01-05] MEDS: Mometasone Furoate 120 PUFF 220 MCG INH SCH (19:17)
[2019-01-05] MEDS: Atorvastatin Calcium 10 MG TAB PO SCH (20:01)
[2019-01-05] MEDS ORDERED: Mag-Al 1200 mg/1200 mg/30 ML UDCUP PO PRN (22:47)
[2019-01-05] MEDS: Milk Of Magnesia 30 ML UDCUP PO PRN (23:03)
[2019-01-06 05:44] LABS: INR-International Normal Ratio 2.1; PTT 42.5 SEC (22.9-36.1); Prothrombin Time 23.5 SEC (12.0-14.7)
--- NOTE | 2019-01-06 07:57 | PDOC.PN ---
- Subjective Encounter Start Date: 01/06/19 Encounter Start Time: 09:45 Subjective: Patient feeling better. Some SOB with ambulation. Edema and SOB` -: markedly improved from admission. - Objective Resuscitation Status - Order Detail: 12/30/18 14:06 Resuscitation Status Routine Resuscitation Status: FULL: Full Resuscitation MAR Reviewed: Yes Vital Signs & Weight: Vital Signs (12 hours) Temp Pulse Resp BP Pulse Ox 01/06/19 07:27 97.7 F 60 18 106/58 L 100 01/06/19 04:00 98.5 F 61 18 113/56 L 98 01/06/19 00:00 97.7 F 64 18 104/57 L 98 01/05/19 20:00 98.5 F 66 18 129/62 98 Weight Weight 275 lb 1.6 oz I&O: 01/05/19 01/06/19 01/07/19 06:59 06:59 06:59 Intake Total 1200 2150 Output Total 1750 1600 Balance -550 550 Result Diagrams: 01/06/19 07:29 01/05/19 05:50 Phys Exam - Physical Examination Constitutional: NAD HEENT: moist MMs Respiratory: no wheezing, no rales, no rhonchi Cardiovascular: RRR Gastrointestinal: soft, positive bowel sounds Musculoskeletal: edema present 1+ BLE Neurological: non-focal, moves all 4 limbs Psychiatric: normal affect, A&O x 3 Dx/Plan (1) Acute on chronic combined systolic and diastolic CHF, NYHA class 3 Code(s): I50.43 - ACUTE ON CHRONIC COMBINED SYSTOLIC AND DIASTOLIC HRT FAIL Status: Acute Comment: EF 40-45%, grade 2/3 diastolic dysfunction 11/2018, improved with high dose diuretics for diuresis. (2) Acute renal failure superimposed on stage 3 chronic kidney disease Code(s): N17.9 - ACUTE KIDNEY FAILURE, UNSPECIFIED; N18.3 - CHRONIC KIDNEY DISEASE, STAGE 3 (MODERATE) Status: Acute Comment: creatinine now stable at baseline (3) Paroxysmal atrial fibrillation Code(s): I48.0 - PAROXYSMAL ATRIAL FIBRILLATION Status: Acute Comment: on Coumadin, now therapeutic (4) Anemia, chronic renal failure Code(s): N18.9 - CHRONIC KIDNEY DISEASE, UNSPECIFIED; D63.1 - ANEMIA IN CHRONIC KIDNEY DISEASE Status: Acute (5) Hypokalemia Code(s): E87.6 - HYPOKALEMIA Status: Acute Comment: still a bit low this AM , giving an extra oral dose, will need to go home on high potassium dose (6) CAD (coronary artery disease) Code(s): I25.10 - ATHSCL HEART DISEASE OF [place] CORONARY ARTERY W/O ANG PCTRS Status: Chronic Comment: stable (7) Dyslipidemia Code(s): E78.5 - HYPERLIPIDEMIA, UNSPECIFIED Status: Chronic Comment: continue statin (8) Morbid obesity with BMI of 45.0-49.9, adult Code(s): E66.01 - MORBID (SEVERE) OBESITY DUE TO EXCESS CALORIES; Z68.42 - BODY MASS INDEX (BMI) 45.0-49.9, ADULT Status: Chronic (9) Severe mitral regurgitation Code(s): I34.0 - NONRHEUMATIC MITRAL (VALVE) INSUFFICIENCY Status: Chronic Comment: (10) Severe tricuspid valve regurgitation Code(s): I07.1 - RHEUMATIC TRICUSPID INSUFFICIENCY Status: Chronic Comment: - Plan cont current plan of care d/c home today with Nikhil CALVILLO * . - Discharge Day Encounter end time: 10:20
[2019-01-06] MEDS ORDERED: Potassium Chloride 20 MEQ TAB PO SCH (08:00)
[2019-01-06 09:09] LABS: Hemoglobin 9.6 g/dL (12.0-16.0); Mean Corpuscular HGB CONC 31.5 g/dL (32.0-36.0); Mean Corpuscular Hemoglobin 24.2 pg (27.0-31.0); Mean Corpuscular Volume 76.8 fL (78.0-98.0); Mean Platelet Volume 9.8 fL (7.4-10.4); Platelet Count 235 thou/uL (130-400); RBC Distribution Width 19.7 % (11.5-14.5); Red Blood Cell (RBC) Count 3.97 mill/uL (4.20-5.40); White Blood Cell (WBC) Count 4.6 thou/uL (4.8-10.8)
[2019-01-06] MEDS: Anastrozole 1 MG TAB PO SCH (09:25)
[2019-01-06] MEDS: Docusate 100 MG CAP PO SCH (09:25)
[2019-01-06] MEDS: Metolazone 5 MG TAB PO SCH (09:25)
[2019-01-06] MEDS: Calcium Carbonate + Vit D 1 TAB PO SCH (09:25)
[2019-01-06] MEDS: Potassium Chloride 20 MEQ TAB PO SCH (09:25)
[2019-01-06] MEDS: Flecainide 50 MG TAB PO SCH (09:25)
[2019-01-06] MEDS: Famotidine 20 MG TAB PO SCH (09:25)
[2019-01-06] MEDS: Furosemide 80 MG TAB PO SCH (09:26)
[2019-01-06] MEDS: FLUoxetine HCl 20 MG CAP PO SCH (09:26)
[2019-01-06 09:42] LABS: Elliptocytes SLIGHT = 2-5 cells (100X) (0-1/hpf); Eosinophils 1 % (0-10); Hypochromia MODERATE=16-30 cells (100X) (0-5/hpf); Lymphocytes 26 % (21-51); MDiff Complete? YES; Microcytosis SLIGHT = 6-15 cells (100X) (0-5/hpf); Monocytes 19 % (0-10); Neutrophil 54 % (42-75); Ovalocytes MODERATE= 6-15 cells (100X) (0-1/hpf); Platelet Morphology Comment Appears Adequate; Polychromasia MODERATE = 3-4 cells (100X) (0-2/hpf); Schistocytes SLIGHT = 2-5 cells (100X) (0-1/hpf)
[2019-01-06 11:52] VITALS: BP 111/59; TEMP 97.8
--- NOTE | 2019-01-07 04:07 | DIS ---
DATE OF ADMISSION: 12/31/2018 DATE OF DISCHARGE: 01/06/2019 PRIMARY CARE PHYSICIAN: Dr. Nj. REASON FOR ADMISSION: Acute on chronic combined congestive heart failure DISCHARGE DIAGNOSES: 1. Acute on chronic combined congestive heart failure with recent ejection fraction of 40% to 45% and grade 2/3 diastolic dysfunction. 2. Acute renal failure superimposed on stage 3 chronic kidney disease, improved after diuresis. 3. Paroxysmal atrial fibrillation, on Coumadin, previously supratherapeutic, now therapeutic on a lower dose. 4. Anemia of chronic disease. 5. Hypokalemia. 6. Coronary artery disease. 7. Dyslipidemia. 8. Morbid obesity. 9. Severe mitral regurgitation. 10. Severe tricuspid regurgitation. PROCEDURES: None. CONSULTATIONS: Cardiology, Dr. Rushing. SUMMARY OF HOSPITAL COURSE: This is a 78-year-old female with a history of combined systolic and diastolic congestive heart failure. She was recently in a [facility] facility and was discharged home with home health. She was noted about over 2 days of dyspnea and lower extremity swelling, presented to the emergency room, was noted to have CHF exacerbation, also noted to have hyperkalemia and mildly elevated creatinine. The patient was given appropriate diuresis. Initially, she did not respond and her diuretics had to be increased and metolazone had to be added. After this patient diuresed well, she had improvement in her creatinine, resolution of her hyperkalemia and actually became hypokalemic, had to have her oral potassium increased significantly due to the increased diuretics. The patient had marked improvement in her lower extremity edema and was doing much better by day of discharge and ready to go home. DISCHARGE MANAGEMENT: Discharged home with [facility]. ACTIVITY: As tolerated. DIET: Healthy heart, low-sodium, fluid-restricted diet. Home therapies of occupational and physical therapy along with weight and fluid status monitoring. FOLLOWUP: Follow up with Dr. Nj tomorrow at 10:00 am and will need repeat basic metabolic panel at that time and adjustment of potassium if still low and follow up with Dr. Rushing in 2 to 3 weeks and with [facility] in [place]. DISCHARGE MEDICATIONS: 1. Furosemide 80 mg twice a day, 60 tablets dispensed. 2. Metolazone 5 mg twice a day, 60 tablets dispensed. 3. Potassium chloride 20 mEq 2 tablets twice a day, 120 tablets dispensed. 4. Warfarin decreased to 5 mg daily, 30 tablets dispensed. 5. Anastrozole 1 mg daily. 6. Calcium 600 plus vitamin D, 1 tablet daily. 7. Docusate 100 mg twice a day. 8. Flecainide 100 mg twice a day. 9. Fluoxetine 20 mg daily. 10. Arnuity Ellipta one inhalation twice a day that is 100 mcg. 11. Pravastatin 40 mg daily. 12. Acetaminophen as needed. 13. Omeprazole 40 mg daily. TIME SPENT: Arranging details of this discharge took 32 minutes. Job ID: [id number]
== END 2019-01-06 13:12 | disposition home health service (06) | DRG 291 ==
LOC: ERS 09:48 → INTOOBSV 11:09 → ERHOLD 11:09 → 2SW 15:48 → OBSVTOIN 12-31 22:31 → 2SE 01-03 11:37
PROVIDERS: ADMIT Family Medicine; ATTEND Family Medicine
DX: I13.0 Hypertensive heart and chronic kidney disease with heart failure and stage 1 through stage 4 chronic kidney disease, or unspecified chronic kidney disease (principal); I50.43 Acute on chronic combined systolic (congestive) and diastolic (congestive) heart failure; N17.9 Acute kidney failure, unspecified; E87.1 Hypo-osmolality and hyponatremia; Z68.41 Body mass index [BMI] 40.0-44.9, adult; E87.5 Hyperkalemia; I48.0 Paroxysmal atrial fibrillation; I25.10 Atherosclerotic heart disease of native coronary artery without angina pectoris; E78.5 Hyperlipidemia, unspecified; K21.9 Gastro-esophageal reflux disease without esophagitis; M19.90 Unspecified osteoarthritis, unspecified site; F41.9 Anxiety disorder, unspecified; F32.9 Major depressive disorder, single episode, unspecified; E66.01 Morbid (severe) obesity due to excess calories; I08.1 Rheumatic disorders of both mitral and tricuspid valves; D50.9 Iron deficiency anemia, unspecified; D63.1 Anemia in chronic kidney disease; N18.3 Chronic kidney disease, stage 3 (moderate); Z88.0 Allergy status to penicillin; Z90.11 Acquired absence of right breast and nipple; Z95.810 Presence of automatic (implantable) cardiac defibrillator; Z79.01 Long term (current) use of anticoagulants; Z79.899 Other long term (current) drug therapy; Z85.3 Personal history of malignant neoplasm of breast; Z88.1 Allergy status to other antibiotic agents; Z88.8 Allergy status to other drugs, medicaments and biological substances
CPT/HCPCS: 36415; 80048; 80053; 83540; 83550; 83735; 85007; 85025; 85027; 85610; 85730; 93005; 96374; J1940; J2405; J3430; J7620; Q0162

== ENCOUNTER 2019-01-17 07:20 | Inpatient (IN) | payer MEDICARE ==
[2019-01-17] MEDS ORDERED: Acetaminophen 325 MG TAB PO PRN (08:44)
[2019-01-17 08:46] LABS: ALT (SGPT) 28 U/L (8-55); AST (SGOT) 61 U/L (5-34); Albumin 3.2 g/dL (3.4-4.8); Alkaline Phosphatase 94 U/L (40-150); Anion Gap 19 mmol/L (10-20); BUN (Urea Nitrogen) 66 mg/dL (9.8-20.1); Calc. Creatinine Clearance 0 mL/min (70-130); Calcium 9.1 mg/dL (7.8-10.44); Carbon Dioxide 24 mmol/L (23-31); Chloride 94 mmol/L (98-107); Estimated GFR-MDRD 21; Globulin 3.8 g/dL (2.4-3.5); Glucose 70 mg/dL (83-110); Potassium 4.9 mmol/L (3.5-5.1); Sodium 132 mmol/L (136-145)
[2019-01-17] MEDS ORDERED: Ondansetron PF 4 MG/2 ML Vial ONE (08:49)
[2019-01-17 09:19] LABS: INR-International Normal Ratio 2.6; PTT 40.7 SEC (22.9-36.1); Prothrombin Time 27.5 SEC (12.0-14.7)
--- NOTE | 2019-01-17 09:33 | RAD ---
Radiograph right hip 2 views: HISTORY: Right hip pain and weakness FINDINGS: No fracture or dislocation. Mild to moderate central-medial hip joint space narrowing. Femoral head c ontour maintained. No subcapital osteophytes. IMPRESSION: 1. No fracture. 2. Mild-moderate articular cartilage thinning
--- NOTE | 2019-01-17 09:57 | ULT ---
GALLBLADDER ULTRASOUND: HISTORY:Nausea FINDINGS: Exam is limited due to bowel gas and patient's body habitus. The liver demonstrates coarsened increased echogenicity consistent with fatty infiltration. No focal mass or intrahepatic ductal dilatation is seen. The gallbladder is not satisfactorily visualized. The pancreas is normal. The inferior pole of the right kidney is poorly visualized due to bowel gas. The common duct [id number] in diameter. No free fluid is seen in the Boyle's pouch. IMPRESSION: 1. Exam limited due to bowel gas and body habitus. 2. Fatty liver.
[2019-01-17] MEDS: Calcium Carbonate + Vit D 1 TAB PO SCH (12:06)
[2019-01-17] MEDS: Pravastatin Sodium 40 MG TAB PO SCH (12:06)
[2019-01-17] MEDS: Anastrozole 1 MG TAB PO SCH (12:25)
--- NOTE | 2019-01-17 15:46 | HP ---
CHIEF COMPLAINT: Right lower leg pain and shortness of breath. HISTORY OF PRESENT ILLNESS: The patient is a 78-year-old female with a history of severe TR and severe MR, also has a history of systolic heart failure, who presents to the hospital with complaints of shortness of breath for the past one week and also worsening right-sided lower extremity weakness. The patient stated that she fell about a week ago at home, lost her balance while she was in the walker and hit her head. She denied any syncopal episode. She also has been having complaints of some nausea, which has been going on for quite some time. The patient denies any abdominal pain or diarrhea; however, states that she gets nauseous sometimes, 2 or 3 times a day and has clear emesis. The patient states that she has been tolerating her oral diet well; however, has been keeping away from fluids since she is asked to be on a fluid restriction. The patient states that she does not move around very much, her mobility is very limited. The patient states that she comes in today with complaints of worsening right lower extremity weakness and shortness of breath. She denies any chest pain or chest pressure; however, states that she does have paroxysmal nocturnal dyspnea. She does sleep on a recliner and has shortness of breath on minimal exertion. PAST MEDICAL HISTORY: 1. Chronic systolic heart failure. 2. Atrial fibrillation, on warfarin. 3. Cardiomyopathy. 4. CAD. 5. Hyperlipidemia. 6. Hypertension. 7. Chronic kidney disease. 8. GERD. 9. Osteoarthritis. 10. Chronic anemia. 11. Depression. 12. History of breast cancer. 13. She has severe MR and TR. 14. She has percutaneous transluminal angioplasty and pacemaker placement, she is currently in paced rhythm. 15. Morbid obesity. 16. Iron deficiency anemia. PAST SURGICAL HISTORY: She has had a mastectomy of the right, bilateral knee replacement, and partial hysterectomy. SOCIAL HISTORY: She denies any alcohol use, drug use, or smoking history. She is currently a full code. I did speak with her about code status and she currently wants to be a full code. She lives at home with her grandson. ALLERGIES: SHE IS ALLERGIC TO HARJINDER, METOPROLOL, PENICILLIN, CIPRO, AND ASPIRIN, WHICH IS NOT AN ALLERGY, SHE JUST GETS UPSET STOMACH. MEDICATIONS: Her last medications on discharge are as of the following; 1. Colace 100 mg b.i.d. 2. Fluoxetine 20 mg q.a.m. 3. Lasix 80 mg b.i.d. 4. Zaroxolyn 5 mg b.i.d. 5. Potassium 40 mEq b.i.d. 6. Anastrozole 1 mg daily. 7. Flecainide 100 mg b.i.d. 8. Fluticasone one b.i.d. 9. Omeprazole 20 mg q.a.m. 10. Pravastatin 40 mg daily. 11. Warfarin 5 mg daily. LABORATORY RESULTS: As of the following; sodium was 129, potassium of 6.2, BUN of 66, creatinine of 2.63, magnesium of 2.7, total bilirubin of 1.6, AST of 69. Her BNP was 1204.9. WBCs of 8.0, hemoglobin of 10.6, hematocrit of 36.2. Her MCV is 74. Her platelets are 222. The patient did have a chest x-ray, which just indicated cardiomyopathy, no pulmonary congestion was noted. PHYSICAL EXAMINATION: VITAL SIGNS: Are as of the following; temperature of 97.9, heart rate of 63, respirations 18, O2 saturations 100% on room air, blood pressure 99/60. GENERAL: The patient is awake, alert, and oriented x3. Appears very ill and very weak. HEENT: Normocephalic and atraumatic. No lymphadenopathy noted. Mucous membranes appear a little dehydrated. Pupils are equal and reactive to light. CV: S1 and S2 present. She does have a systolic murmur heard on her left substernal area. LUNGS: Mild crackles to bilateral lower bases. ABDOMEN: Soft, obese. Bowel sounds are present x2. She does have mild discomfort upon palpation of her epigastric area. EXTREMITIES: She does have +2 lower extremity edema. Pedal pulses are present. SKIN: She does have a small laceration to her left great toe, it just looks like a skin flap that is torn. NEUROLOGIC: Neurovascular christian, the patient has no focal deficits. However, again I was unable to walk or ambulate the patient. She does have some mild weakness to her right lower extremity. ASSESSMENT AND PLAN: The patient is a 78-year-old female, who presents to the hospital with complaints of right lower extremity weakness and shortness of breath. 1. Acute on chronic systolic heart failure. Upon reviewing the patient's records, last echocardiogram which was done in November of 2018, she had an EF of 40% to 45%. She also has significant severe mitral regurgitation and severe tricuspid regurgitation, and her right ventricular pressure was 20. I will consult Cardiology. Currently, the patient clinically appears to be a little dehydrated; however, her labs appear to be volume overload. I will hold off on the diuretics for today. I will put her on a fluid restriction. However, I will not give her any additional fluids. Her EKG shows AV paced. I doubt she is a candidate for any valvular replacement or any kind of procedures in terms of her valves. She also has history of coronary artery disease. I am not sure if that is also possibility to evaluate her coronaries to see what is causing the patient to be continually short of breath. That is another possibility, however, most likely, it is probably secondary to her significant regurgitating valve. 2. Acute on chronic kidney injury. This could be secondary to her diuretics and also the patient being intravascularly volume depleted. We will continue to hold. Nephrology has been consulted. If her creatinine does not improve, I will get a renal ultrasound tomorrow. Strict Is and Os. 3. Hyponatremia. We will check a serum osmolality, urine osmolality, and urine sodium. This could be again secondary due to her underlying heart disease versus her being mildly dehydrated. 4. Hyperkalemia. The patient's potassium at the outside facility was 6.2. She was given the hyperkalemia cocktail. Her repeat one was 4.3. We will continue to monitor. 5. Nausea. Chronic nausea, we will get a right upper quadrant ultrasound. She has had a CAT scan in the past, which did not indicate any acute abnormalities. This was done in September. No acute abnormalities were noted. 6. Right lower extremity weakness. I will get a hip x-ray. She did have a CT brain in December, just a few days ago, and the CT brain did not indicate any acute abnormalities, no strokes. She also states that she has had this weakness of her right leg for a very long time and her mobility has always been limited. 7. Deep venous thrombosis prophylaxis. The patient is currently on Coumadin. 8. Chronic atrial fibrillation. She is currently paced. I will continue her Coumadin. I did discuss with the patient the code status; however, currently she wants to be a full code. The patient has significant multiple comorbidities. Compared to her previous visits, on this visit, she appears more ill. We will continue to follow along. I will also consult Palliative Care. Job ID: [id number]
[2019-01-17] MEDS: Warfarin Sodium 5 MG TAB PO SCH (18:39)
[2019-01-17 19:06] LABS: Sodium, Urine 55 mmol/L (Not Available); Urea Nitrogen, Random Urine 302 mg/dl
[2019-01-17] MEDS: Mometasone Furoate 120 PUFF 220 MCG INH SCH (19:21)
[2019-01-17] MEDS: Flecainide 50 MG TAB PO SCH (20:19)
--- NOTE | 2019-01-17 21:59 | CON ---
DATE OF CONSULTATION: 01/17/2019 HISTORY OF PRESENT ILLNESS: This is a 78-year-old female with a history of multiple recent hospitalizations related to heart failure, who initially presented to the [place] emergency room with a complain of right-sided weakness while at home. She was apparently sitting on the toilet and could not stand up due to right lower extremity weakness. She also had associated right upper extremity weakness. In the [place] emergency room, she was noted to be hyperkalemic with an KALI, an elevated BNP and hyponatremic. The patient was transferred to this facility and admitted due to the weakness. Since admission, the patient's symptoms largely resolved. She complains of only a mild amount of continuing weakness on the right lower extremity and she ambulated with almost no assistance from PT earlier today. At no point has she been more short of breath than baseline. She has had no cough. She has had no chest pain. She does note that she cannot lie flat, however this has been her baseline for years. She recently had an echo on 11/27, which showed an EF of 40 to 45%, 2/3 diastolic function and severe MR and severe TR. PAST MEDICAL HISTORY: Includes heart failure with reduced ejection fraction, paroxysmal atrial fibrillation, coronary artery disease, hypertension, dyslipidemia, GERD, osteoarthritis, history of breast cancer. SOCIAL HISTORY: Former smoker with 10+ pack-year history of smoking; however, currently does not smoke. Denies alcohol or illicit drugs. FAMILY HISTORY: Positive for hypertension and coronary artery disease. SURGICAL HISTORY: Right mastectomy, right knee replacement, hysterectomy and coronary stenting with pacemaker placement. REVIEW OF SYSTEMS: GENERAL: Denies fevers, chills. HEENT:: Denies headaches. CARDIOVASCULAR: Denies chest pain, palpitations, or lower extremity edema. RESPIRATORY: Denies cough, shortness of breath. GI: Denies nausea, vomiting, diarrhea, or constipation. NEUROLOGIC: Complains of right arm and right leg weakness, symptoms not resolved. PHYSICAL EXAMINATION: VITAL SIGNS: Pulse 59, blood pressure 106/53, temp 97.6, respiratory rate 18, O2 saturation 98% on room air. LABORATORY DATA: White count 8.0, hemoglobin 10.6, hematocrit 36.2 and platelet 222. INR 2.7. Sodium 132, potassium 4.9, potassium on admission was 6.2, chloride 94, carbon dioxide 24, BUN 66, creatinine 2.67, GFR 21 and glucose 303. Bilirubin 2.0, AST 61, ALT 20, BNP 1204, albumin 33.8. PHYSICAL EXAMINATION: GENERAL: Alert, oriented x4. No acute distress. HEENT: Atraumatic, normocephalic. CARDIOVASCULAR: Regular rate and rhythm, 3/6 holosystolic murmur, does not radiate to carotids. RESPIRATORY: Decreased muscle breath sounds bilaterally. ABDOMEN: Nondistended, nontender. NEUROLOGIC: Normal sensation in all extremities. No facial droop. Normal strength in upper and lower extremities. ASSESSMENT: 1. Weakness, possible transient ischemic attack. 2. Chronic congestive heart failure with reduced ejection fraction. 3. Paroxysmal atrial fibrillation. 4. Coronary artery disease. PLAN: The patient does have an elevated BNP from her baseline. Clinically, she appears to be euvolemic. She has no increased oxygen demand and is breathing unlabored. Her chest x-ray shows minimal pulmonary vascular congestion. She has no peripheral edema. We will continue to monitor her I and Os. Due to reduced ejection fraction, may consider cessation of flecainide at some point. Also may consider biventricular pacing. Atrial fibrillation, currently in sinus rhythm. We would continue anticoagulation. We will continue to follow. No acute changes to current plan. The patient was seen and plan was discussed with Dr. Griffiths. Job ID: [id number]
--- NOTE | 2019-01-17 22:59 | CON ---
DATE OF CONSULTATION: 01/17/2019 [employer]IMARY [employer] TESTER: Héctor Rushing MD REASON FOR CONSULTATION: Increased BNP. HISTORY OF PRESENT ILLNESS: Ms. Vigil is a very pleasant 78-year-old woman. The patient has a history of congestive heart failure as well as mitral regurgitation, previous pacemaker insertion, and tricuspid insufficiency, as well as atrial fibrillation. The patient was admitted to the hospital on this occasion with leg weakness. . The patient is feeling fine now, no complaints. She recently was hospitalized with congestive heart failure. PAST MEDICAL HISTORY: As outlined above with multiple problems as outlined above. She also has renal insufficiency. PAST SURGICAL HISTORY: Right mastectomy, bilateral total knee replacement, partial hysterectomy. MEDICATIONS: Prior to admission, please see admission notes for these outpatient medications, they included, 1. Lasix. 2. Flecainide. 3. Coumadin. ALLERGIES: HARJINDER INHIBITORS, METOPROLOL, PENICILLIN. FAMILY HISTORY: Positive for hypertension. SOCIAL HISTORY: No alcohol or drugs. REVIEW OF SYSTEMS: CONSTITUTIONAL: No significant weight gain or loss. VISION: No changes. HEARING: No changes. PULMONARY: No cough or wheezing. GASTROINTESTINAL: No nausea, vomiting, or diarrhea. SKIN: No rashes. PHYSICAL EXAMINATION: GENERAL: This is a delightful elderly woman, in no distress. VITAL SIGNS: Blood pressure 103/50, pulse 60. LUNGS: Clear. CARDIAC: Normal S1, normal S2. There is a 2/6 holosystolic murmur at the apex , 3/6 holosystolic murmur, left mid sternal border. ABDOMEN: Soft, nontender. EXTREMITIES: Warm, dry. No clubbing or cyanosis. Only mild edema. PERTINENT LABORATORY: INR is 2.6. Creatinine is 2.67. Chest x-ray shows pulmonary vascular congestion. Reviewed the echocardiogram. She does have severe mitral regurgitation. EKG reveals atrial and right ventricular paced rhythm. ASSESSMENT: 1. Congestive heart failure, chronic, systolic, diastolic, appears stable. 2. Severe mitral regurgitation. 3. Severe tricuspid insufficiency. 4. Previous pacemaker. 5. Atrial fibrillation, maintaining sinus rhythm. PLAN: 1. Continue current medical regimen. 2. At some point, could consider upgrading her pacemaker to a biventricular device that may improve her ejection fraction as well as help the mitral regurgitation. 3. Another option for the mitral regurgitation if that proves refractory to the above listed maneuver, could consider MitraClip if she is not a surgical candidate. From a cardiac standpoint, the patient can be released home to follow up in the clinic. Job ID: [id number] [id number]
--- NOTE | 2019-01-18 01:36 | CON ---
DATE OF CONSULTATION: 01/17/2019 CONSULTING PHYSICIAN: Dr. Quiles. REASON FOR CONSULT: Acute kidney injury. REASON FOR ADMISSION: Shortness of breath. HISTORY OF PRESENT ILLNESS: 78-year-old female with history of CHF, hyperlipidemia, hypertension, multiple valvular problems, came to the hospital with shortness of breath, was found to have elevated creatinine and Nephrology was consulted. The patient is very lethargic and no nausea, vomiting, no chest pain. No fever or chills. PAST MEDICAL HISTORY: Positive for CHF, CKD, hyperlipidemia, hypertension, osteoarthritis, anemia, multiple valvular problems. PAST SURGICAL HISTORY: Mastectomy and partial hysterectomy. HOME MEDICATIONS: 1. Colace. 2. Fluoxetine. 3. Lasix. 4. Zaroxolyn. 5. Potassium. 6. Anastrozole. 7. Flecainide. 8. Fluticasone. 9. Omeprazole. 10. Pravastatin. 11. Warfarin. ALLERGIES: HARJINDER INHIBITORS, ASPIRIN, CIPRO, PENICILLIN, AND METOPROLOL. SOCIAL HISTORY: No smoking, alcohol, or drugs. FAMILY HISTORY: No significant disease. REVIEW OF SYSTEMS: CONSTITUTIONAL: Negative for weight loss or gain, ability to conduct usual activities. SKIN: Negative for rash, itching. EYES: Negative for double vision, pain. ENT/MOUTH: Negative for nose bleeding, neck stiffness, pain, tenderness. CARDIOVASCULAR: Negative for palpitations, dyspnea on exertion, orthopnea. RESPIRATORY: Negative for shortness of breath, wheezing, cough, hemoptysis, fever or night sweats. GASTROINTESTINAL: Negative for poor appetite, abdominal pain, heartburn, nausea, vomiting, constipation, or diarrhea. GENITOURINARY: Negative for urgency, frequency, dysuria, nocturia. MUSCULOSKELETAL: Negative for pain, swelling. NEUROLOGIC/PSYCHIATRIC: Negative for anxiety, depression. ALLERGY/IMMUNOLOGIC: Negative for skin rash, bleeding tendency. Rest all negative. PHYSICAL EXAMINATION: GENERAL: This is a well-built female, very lethargic. VITAL SIGNS: Temperature 97.6, pulse 68, respiratory rate 16, blood pressure 103/50. HEENT: Head is atraumatic, normocephalic. NECK: Supple. CV: S1 and S2 heard. Rate and rhythm regular. Murmur present. CHEST: Clear. GI: Abdomen is soft. MUSCULOSKELETAL: 1 to 2+ edema. DERMATOLOGIC: No skin rash. NEUROLOGIC: Alert, awake, and somnolent. LABORATORY DATA: Potassium 4.9, BUN is 66, and creatinine is 2.6. ASSESSMENT AND PLAN: 1. Acute kidney injury on chronic kidney disease stage 4, most likely cardiorenal syndrome. The patient might need inotropes, last time she needed inotropes including Milrinone. 2. Edema. 3. Cardiorenal syndrome. 4. Hyperalbuminemia. 5. . 6. Agree with holding Lasix and might need inotropes. Follow with Cardiology. 7. Avoid nephrotoxins. Renally dose all medications, I will follow. Thank you for the consult. Job ID: [id number]
[2019-01-18 05:56] LABS: #Eosinphils 0.1 thou/uL (0.0-0.7); #Lymphocytes 1.4 thou/uL (1.20-3.40); %Basophils 0.7 % (0.0-1.0); %Eosinophils 1.9 % (0.0-10.0); %Lymphocytes 21.3 % (21.0-51.0); %Monocytes 14.7 % (0.0-10.0); %Neutrophils 61.5 % (42.0-75.0); Hemoglobin 9.4 g/dL (12.0-16.0); INR-International Normal Ratio 2.6; Mean Corpuscular HGB CONC 31.6 g/dL (32.0-36.0); Mean Corpuscular Hemoglobin 24.2 pg (27.0-31.0); Mean Corpuscular Volume 76.6 fL (78.0-98.0); Mean Platelet Volume 10.6 fL (7.4-10.4); Platelet Count 230 thou/uL (130-400); Prothrombin Time 27.5 SEC (12.0-14.7); RBC Distribution Width 20.5 % (11.5-14.5); Red Blood Cell (RBC) Count 3.88 mill/uL (4.20-5.40); White Blood Cell (WBC) Count 6.5 thou/uL (4.8-10.8)
[2019-01-18 06:28] LABS: ALT (SGPT) 29 U/L (8-55); AST (SGOT) 63 U/L (5-34); Albumin 3.1 g/dL (3.4-4.8); Alkaline Phosphatase 88 U/L (40-150); Anion Gap 14 mmol/L (10-20); BUN (Urea Nitrogen) 69 mg/dL (9.8-20.1); Bilirubin, Total 1.8 mg/dL (0.2-1.2); Calc. Creatinine Clearance 34 mL/min (70-130); Calcium 9.3 mg/dL (7.8-10.44); Carbon Dioxide 33 mmol/L (23-31); Chloride 92 mmol/L (98-107); Estimated GFR-MDRD 21; Globulin 3.5 g/dL (2.4-3.5); Glucose 60 mg/dL (83-110); Iron 24 ug/dL (50-170); Protein, Total 6.6 g/dL (6.0-8.3); Sodium 135 mmol/L (136-145)
[2019-01-18] MEDS: Calcium Carbonate + Vit D 1 TAB PO SCH (09:57)
[2019-01-18] MEDS: Anastrozole 1 MG TAB PO SCH (09:58)
[2019-01-18] MEDS: Flecainide 50 MG TAB PO SCH ×2 (10:00→20:49)
[2019-01-18] MEDS: Pravastatin Sodium 40 MG TAB PO SCH (10:01)
--- NOTE | 2019-01-18 10:58 | PDOC.PN ---
- Subjective Encounter Start Date: 01/18/19 Encounter Start Time: 10:56 Patient seen and examined, no new issues or complaints. All questions answered. - Objective Resuscitation Status - Order Detail: 01/17/19 08:44 Resuscitation Status Routine Resuscitation Status: FULL: Full Resuscitation Vital Signs & Weight: Vital Signs (12 hours) Temp Pulse Resp BP Pulse Ox 01/18/19 07:50 98.8 F 62 16 96/55 L 97 01/18/19 04:00 97.9 F 68 18 107/62 98 01/18/19 00:00 97.7 F 60 18 102/56 L 99 Weight Weight 261 lb 14.4 oz I&O: 01/17/19 01/18/19 01/19/19 06:59 06:59 06:59 Intake Total 840 Output Total 950 Balance -110 Result Diagrams: 01/18/19 05:12 01/18/19 05:12 Phys Exam - Physical Examination Constitutional: NAD HEENT: PERRLA, moist MMs, sclera anicteric Neck: no nodes, no JVD, supple Respiratory: no wheezing, no rales, no rhonchi Cardiovascular: RRR, no significant murmur, no rub Gastrointestinal: soft, non-tender, no distention Musculoskeletal: pulses present, edema present Dx/Plan (1) Acute on chronic combined systolic and diastolic CHF, NYHA class 3 Code(s): I50.43 - ACUTE ON CHRONIC COMBINED SYSTOLIC AND DIASTOLIC HRT FAIL Status: Acute Comment: EF 40-45%, grade 2/3 diastolic dysfunction 11/2018, improved with high dose diuretics for diuresis. (2) Constipation Code(s): K59.00 - CONSTIPATION, UNSPECIFIED Status: Acute (3) Paroxysmal atrial fibrillation Code(s): I48.0 - PAROXYSMAL ATRIAL FIBRILLATION Status: Acute Comment: on Coumadin, now therapeutic (4) CAD (coronary artery disease) Code(s): I25.10 - ATHSCL HEART DISEASE OF [place] CORONARY ARTERY W/O ANG PCTRS Status: Chronic Comment: stable (5) Physical deconditioning Code(s): R53.81 - OTHER MALAISE Status: Chronic Comment: - Plan * Continue current plan of care * symptoms improved * will await subspecialists clearance prior to discharge * no family at bedside.
--- NOTE | 2019-01-18 13:09 | PRG ---
DATE OF SERVICE: 01/18/2019 SUBJECTIVE: Patient was seen and examined at bedside and overnight events noted. Patient denies any shortness of breath or chest pain or palpitation. No history of nausea or vomiting or diarrhea or fever or chills or cramps. OBJECTIVE: GENERAL: This is a well-built female, in no apparent distress. VITAL SIGNS: Temperature 98.8. Heart rate 62. Respiratory rate 16. Blood pressure 96/55. HEENT: Atraumatic, normocephalic. Oral mucosa is moist NECK: Supple. CARDIOVASCULAR: S1, S2 heard. Rate and rhythm regular. RESPIRATORY: Clear to auscultation. GASTROINTESTINAL: Abdomen is soft. MUSCULOSKELETAL: No tenderness. No edema. DERMATOLOGIC: No skin rash. NEUROLOGIC: Alert and awake and oriented X3. No focal neurologic deficits. Moving all the extremities. PSYCHIATRIC: Mood and affect normal. LABORATORY DATA: Potassium 4.0, BUN is 69, creatinine is 2.0. ASSESSMENT AND PLAN: 1. Acute kidney injury on chronic kidney disease stage 4 with stable labs. 2. Cardiorenal syndrome. Follow with Cardiology. Agree with holding diuretics. 3. Edema. 4. Hypoalbuminemia. 5. Hypotension. 6. Long-term prognosis is poor. Follow with Cardiology. No acute indication for dialysis and poor candidate for dialysis. We will follow. Job ID: [id number]
[2019-01-18] MEDS: Warfarin Sodium 5 MG TAB PO SCH (17:10)
[2019-01-18] MEDS: Senokot S 8.6-50 MG TAB PO PRN (18:12)
[2019-01-18] MEDS: Mometasone Furoate 120 PUFF 220 MCG INH SCH (19:13)
[2019-01-19] MEDS: Flecainide 50 MG TAB PO SCH ×2 (08:46→20:07)
[2019-01-19] MEDS: Senokot S 8.6-50 MG TAB PO PRN ×2 (08:46→20:07)
[2019-01-19] MEDS: Calcium Carbonate + Vit D 1 TAB PO SCH (08:46)
[2019-01-19] MEDS: Anastrozole 1 MG TAB PO SCH (08:46)
[2019-01-19] MEDS: Pravastatin Sodium 40 MG TAB PO SCH (08:46)
[2019-01-19 08:53] VITALS: BMI 43.4
--- NOTE | 2019-01-19 11:18 | PDOC.PN ---
- Subjective Encounter Start Date: 01/19/19 Encounter Start Time: 11:16 Patient seen and examined, no new issues or complaints. No family at bedside. - Objective Resuscitation Status - Order Detail: 01/17/19 08:44 Resuscitation Status Routine Resuscitation Status: FULL: Full Resuscitation Vital Signs & Weight: Vital Signs (12 hours) Temp Pulse Resp BP Pulse Ox 01/19/19 07:39 98 F 61 16 107/57 L 97 01/19/19 04:00 98.4 F 64 18 97/56 L 98 01/19/19 00:00 98.3 F 65 18 111/58 L 98 Weight Admit Weight 261 lb Weight 269 lb 4.8 oz I&O: 01/18/19 01/19/19 01/20/19 06:59 06:59 06:59 Intake Total 840 1275 120 Output Total 950 900 200 Balance -110 375 -80 Result Diagrams: 01/18/19 05:12 01/18/19 05:12 Phys Exam - Physical Examination Constitutional: NAD HEENT: PERRLA, moist MMs Neck: no nodes, no JVD Respiratory: no wheezing, no rales, no rhonchi Cardiovascular: RRR, no significant murmur, no rub Gastrointestinal: soft, non-tender, no distention, positive bowel sounds Musculoskeletal: pulses present, edema present (trace) Dx/Plan (1) Acute on chronic combined systolic and diastolic CHF, NYHA class 3 Code(s): I50.43 - ACUTE ON CHRONIC COMBINED SYSTOLIC AND DIASTOLIC HRT FAIL Status: Acute Comment: EF 40-45%, grade 2/3 diastolic dysfunction 11/2018, improved with high dose diuretics for diuresis. (2) Constipation Code(s): K59.00 - CONSTIPATION, UNSPECIFIED Status: Acute (3) Paroxysmal atrial fibrillation Code(s): I48.0 - PAROXYSMAL ATRIAL FIBRILLATION Status: Acute Comment: on Coumadin, now therapeutic (4) CAD (coronary artery disease) Code(s): I25.10 - ATHSCL HEART DISEASE OF [place] CORONARY ARTERY W/O ANG PCTRS Status: Chronic Comment: stable (5) Physical deconditioning Code(s): R53.81 - OTHER MALAISE Status: Chronic Comment: - Plan * cont current plan of care * overall prognosis is guarded * long conversation held with the patient, advised to have a conversation with hospice. * Patient agreed, plan also d/w patient's daughter via phone [phone], will place CM consult for hospice * no changes in current plan of care for now
--- NOTE | 2019-01-19 12:37 | PRG ---
DATE OF SERVICE: 01/19/2019 SUBJECTIVE: Patient was seen and examined at bedside and overnight events noted. Patient denies any shortness of breath or chest pain or palpitation. No history of nausea or vomiting or diarrhea or fever or chills or cramps. OBJECTIVE: GENERAL: This is a well-built female, in no acute distress. VITAL SIGNS: Temperature 98. Heart rate 61. Respiratory rate 16. Blood pressure 107/57. HEENT: Atraumatic, normocephalic. Oral mucosa is moist. NECK: Supple. CARDIOVASCULAR: S1, S2 heard. Rate and rhythm regular. RESPIRATORY: Clear to auscultation. GASTROINTESTINAL: Abdomen is soft. MUSCULOSKELETAL: No tenderness. No edema. DERMATOLOGIC: No skin rash. NEUROLOGIC: Alert and awake and oriented X3. No focal neurologic deficits. Moving all the extremities. PSYCHIATRIC: Mood and affect normal. LABORATORY DATA: No labs noted. ASSESSMENT AND PLAN: 1. Acute kidney injury on chronic kidney stage 4, seems to be close to her baseline. 2. Cardiorenal syndrome. 3. Edema. 4. Hypotension. 5. Probable anemia. Avoid nephrotoxins. Follow with Cardiology for further plans. We will follow. Job ID: [id number]
[2019-01-19] MEDS: Ondansetron PF 4 MG/2 ML Vial IVP PRN (13:02)
[2019-01-19] MEDS ORDERED: Docusate Sodium 100 MG/10 ML UDCUP PO PRN (15:50)
[2019-01-19] MEDS: Warfarin Sodium 5 MG TAB PO SCH (16:08)
[2019-01-19] MEDS: Mometasone Furoate 120 PUFF 220 MCG INH SCH (18:05)
[2019-01-19] MEDS ORDERED: Melatonin 3 MG TAB PO PRN (19:39)
[2019-01-19] MEDS ORDERED: Temazepam 15 MG CAP PO PRN (23:32)
[2019-01-20 05:24] LABS: INR-International Normal Ratio 3.3; Prothrombin Time 33.8 SEC (12.0-14.7)
[2019-01-20 05:27] LABS: ALT (SGPT) 26 U/L (8-55); AST (SGOT) 51 U/L (5-34); Albumin 3.2 g/dL (3.4-4.8); Alkaline Phosphatase 91 U/L (40-150); Anion Gap 18 mmol/L (10-20); BUN (Urea Nitrogen) 69 mg/dL (9.8-20.1); Calc. Creatinine Clearance 35 mL/min (70-130); Calcium 9.1 mg/dL (7.8-10.44); Carbon Dioxide 26 mmol/L (23-31); Chloride 87 mmol/L (98-107); Estimated GFR-MDRD 21; Globulin 3.6 g/dL (2.4-3.5); Glucose 94 mg/dL (83-110); Potassium 3.1 mmol/L (3.5-5.1); Protein, Total 6.8 g/dL (6.0-8.3); Sodium 128 mmol/L (136-145)
[2019-01-20 06:09] LABS: #Eosinphils 0.1 thou/uL (0.0-0.7); #Lymphocytes 1.5 thou/uL (1.20-3.40); #Monocytes 0.6 thou/uL (0.11-0.59); #Neutrophils 3.2 thou/uL (1.40-6.50); %Basophils 0.3 % (0.0-1.0); %Lymphocytes 27.6 % (21.0-51.0); %Monocytes 11.2 % (0.0-10.0); %Neutrophils 59.8 % (42.0-75.0); Anisocytosis MODERATE=16-30 cells (100X) (0-5/hpf); Hemoglobin 9.5 g/dL (12.0-16.0); Hypochromia SLIGHT = 6-15 cells (100X) (0-5/hpf); MDiff Complete? YES; Macrocytosis SLIGHT = 6-15 cells (100X) (0-5/hpf); Mean Corpuscular HGB CONC 30.2 g/dL (32.0-36.0); Mean Corpuscular Hemoglobin 23.3 pg (27.0-31.0); Mean Corpuscular Volume 77.2 fL (78.0-98.0); Mean Platelet Volume 11.2 fL (7.4-10.4); Microcytosis SLIGHT = 6-15 cells (100X) (0-5/hpf); Platelet Count 238 thou/uL (130-400); Platelet Morphology Comment Appears Decreased; Polychromasia SLIGHT = 2-3 cells (100X) (0-2/hpf); RBC Distribution Width 21.3 % (11.5-14.5); Red Blood Cell (RBC) Count 4.08 mill/uL (4.20-5.40); White Blood Cell (WBC) Count 5.4 thou/uL (4.8-10.8)
--- NOTE | 2019-01-20 08:26 | PDOC.PN ---
- Subjective Encounter Start Date: 01/20/19 Encounter Start Time: 11:00 Subjective: Patient unchanged. No SOB. No lower extremity edema. Still -: weak in lower extremities. - Objective Resuscitation Status - Order Detail: 01/17/19 08:44 Resuscitation Status Routine Resuscitation Status: FULL: Full Resuscitation MAR Reviewed: Yes Vital Signs & Weight: Vital Signs (12 hours) Temp Pulse Resp BP Pulse Ox 01/20/19 07:53 97.6 F 62 18 103/51 L 97 01/20/19 07:30 97 01/20/19 04:00 97.8 F 67 16 104/53 L 96 01/20/19 00:00 97.8 F 68 16 102/54 L 98 Weight Admit Weight 261 lb Weight 262 lb 4.8 oz I&O: 01/19/19 01/20/19 01/21/19 06:59 06:59 06:59 Intake Total 1275 960 Output Total 900 850 Balance 375 110 Result Diagrams: 01/20/19 04:35 01/20/19 04:35 Phys Exam - Physical Examination Constitutional: NAD HEENT: moist MMs Respiratory: no wheezing, no rales, no rhonchi Cardiovascular: RRR Gastrointestinal: soft, positive bowel sounds Neurological: non-focal Psychiatric: normal affect, A&O x 3 Dx/Plan (1) Chronic combined systolic and diastolic CHF, NYHA class 4 Code(s): I50.42 - CHRONIC COMBINED SYSTOLIC AND DIASTOLIC HRT FAIL Status: Chronic Comment: noted to be stable by cardiology and no diuresis recommended at this point, outpatient followup recommended (2) Acute renal failure superimposed on stage 3 chronic kidney disease Code(s): N17.9 - ACUTE KIDNEY FAILURE, UNSPECIFIED; N18.3 - CHRONIC KIDNEY DISEASE, STAGE 3 (MODERATE) Status: Chronic Comment: stable at baseline per nephrology (3) Constipation Code(s): K59.00 - CONSTIPATION, UNSPECIFIED Status: Acute (4) Hypokalemia Code(s): E87.6 - HYPOKALEMIA Status: Acute Comment: replace orally (5) Paroxysmal atrial fibrillation Code(s): I48.0 - PAROXYSMAL ATRIAL FIBRILLATION Status: Chronic Comment: on Coumadin, now therapeutic (6) CAD (coronary artery disease) Code(s): I25.10 - ATHSCL HEART DISEASE OF [place] CORONARY ARTERY W/O ANG PCTRS Status: Chronic Comment: stable (7) Chronic anticoagulation Code(s): Z79.01 - SENIOR LIVING (CURRENT) USE OF ANTICOAGULANTS Status: Chronic (8) Morbid obesity with BMI of 45.0-49.9, adult Code(s): E66.01 - MORBID (SEVERE) OBESITY DUE TO EXCESS CALORIES; Z68.42 - BODY MASS INDEX (BMI) 45.0-49.9, ADULT Status: Chronic (9) Severe mitral regurgitation Code(s): I34.0 - NONRHEUMATIC MITRAL (VALVE) INSUFFICIENCY Status: Chronic Comment: (10) Severe tricuspid valve regurgitation Code(s): I07.1 - RHEUMATIC TRICUSPID INSUFFICIENCY Status: Chronic Comment: - Plan cont current plan of care, PT/OT patient has net positive fluids, will need to resume home diuretics -: can discharge and follow up with cardiology outpatient, discussed -: rehab vs. SNF due to weakness but patient wants to go home, says -: family can help her ambulate * . - Discharge Day Encounter end time: 11:30
[2019-01-20] MEDS ORDERED: Potassium Chloride 20 MEQ TAB PO SCH ×2 (08:30→09:00)
[2019-01-20] MEDS ORDERED: Non-Formulary Item 1 EACH (Fluoxetine Hcl [Fluoxetine Hcl] 20 MG) PO SCH (09:00)
[2019-01-20] MEDS ORDERED: FLUoxetine HCl 20 MG CAP PO SCH (09:00)
[2019-01-20] MEDS ORDERED: Lorazepam 1 MG TAB PO SCH (09:00)
[2019-01-20] MEDS: Flecainide 50 MG TAB PO SCH (09:24)
[2019-01-20] MEDS: Pravastatin Sodium 40 MG TAB PO SCH (09:25)
[2019-01-20] MEDS: Anastrozole 1 MG TAB PO SCH (09:25)
[2019-01-20] MEDS: Furosemide 80 MG TAB PO SCH ×2 (09:26→13:31)
[2019-01-20] MEDS: Calcium Carbonate + Vit D 1 TAB PO SCH (09:26)
--- NOTE | 2019-01-20 11:00 | PRG ---
DATE OF SERVICE: 01/20/2019 SUBJECTIVE: Patient was seen and examined at bedside and overnight events noted. Patient denies any shortness of breath or chest pain or palpitation. No history of nausea or vomiting or diarrhea or fever or chills or cramps. OBJECTIVE: GENERAL: This is a well-built female, . VITAL SIGNS: Temperature 97.0. Heart rate 62. Respiratory rate 18. Blood pressure 103/51. HEENT: Atraumatic, normocephalic. Oral mucosa is moist NECK: Supple. CARDIOVASCULAR: S1, S2 heard. Rate and rhythm regular. RESPIRATORY: Clear to auscultation. GASTROINTESTINAL: Abdomen is soft. MUSCULOSKELETAL: No tenderness. No edema. DERMATOLOGIC: No skin rash. NEUROLOGIC: Alert and awake and oriented X3. No focal neurologic deficits. Moving all the extremities. PSYCHIATRIC: Mood and affect normal. LABORATORY DATA: Potassium is 3.1, sodium is 128, BUN is 69, and creatinine is 2.2. ASSESSMENT AND PLAN: 1. Acute kidney injury on chronic kidney disease stage 4, seems like creatinine is at no baseline. 2. Hyponatremia. Agree with starting diuretics. 3. Hypokalemia, replace and monitor. 4. Cardiorenal syndrome. Follow with Cardiology. 5. Hypotension. 6. Edema. Sodium bicarbonate added. Please monitor renal function. Job ID: [id number]
[2019-01-20] MEDS ORDERED: Milk Of Magnesia 30 ML UDCUP PO PRN (11:31)
[2019-01-20] MEDS ORDERED: Fleet Enema 133 ML BOT PR SCH (11:45)
[2019-01-20 11:54] VITALS: TEMP 97.9
[2019-01-20 11:57] VITALS: BP 115/58
[2019-01-20] MEDS: Ondansetron PF 4 MG/2 ML Vial IVP PRN (12:47)
[2019-01-20] MEDS ORDERED: Metolazone 5 MG TAB PO SCH (13:30)
--- NOTE | 2019-01-21 02:41 | DIS ---
DATE OF ADMISSION: 01/17/2019 DATE OF DISCHARGE: 01/20/2019 PRIMARY CARE PHYSICIAN: Dr. Nj. REASON FOR ADMISSION: Acute on chronic systolic congestive heart failure and acute on chronic kidney injury. DIAGNOSES AT DISCHARGE: 1. Chronic combined systolic and diastolic congestive heart failure with stable fluid status. 2. Acute on chronic stage 3 kidney disease. 3. Constipation. 4. Hypokalemia. 5. Paroxysmal atrial fibrillation. 6. Coronary artery disease. 7. Chronic anticoagulation. 8. Morbid obesity. 9. Severe mitral and tricuspid regurgitation. PROCEDURES PERFORMED: 1. Hip x-ray showing no fracture and [id number] articular cartilage thinning. 2. Abdominal ultrasound showing a fatty liver with no other significant findings. CONSULTATIONS: 1. Cardiology, Dr. Griffiths. 2. Nephrology, Dr. Mcdonough. SUMMARY OF HOSPITAL COURSE: This is a 78-year-old female with a history of severe tricuspid and mitral regurgitation, as well as systolic and diastolic congestive heart failure, recently hospitalized for heart failure exacerbation. The patient was diuresed to a neutral fluid balance and discharged. She was persistently weak but wanted to go home with home health. The patient had persistent weakness at home over the next week or so, felt like her weakness in her lower extremities was getting worse, and she might have some worsening edema in her right lower extremity, and she also had a fall at home, where she tripped and fell on her head about a week before she came in. She was evaluated in the emergency room. Her x-rays done of the right lower extremity and was admitted for CHF exacerbation. Dr. Griffiths was consulted. On his evaluation, he stated that she appeared to be in neutral fluid balance and did not recommend any aggressive diuresis. Her creatinine was up a little when she came in, and she had some low sodium as well. Nephrology was consulted. They recommended avoiding nephrotoxic agents but stated that her renal function was about baseline and did not recommend any further interventions. PT did evaluate the patient and got her ambulating some but recommended rehab. The patient was stable from a cardiovascular status on the day of discharge and was recommended that she go to inpatient rehabilitation or jail facility for physical therapy and strengthening. The patient refused. States she want to go home that she had plenty of family to help her, may ambulate at home once go back with home health. DISCHARGE MANAGEMENT: Location: Discharged home with Home Health. Activity: As tolerated. Diet: Fluid restricted healthy heart diet. Continue home health, occupational, physical therapy, and fluid restriction. FOLLOWUP: Follow up with cardiac rehab with Dr. Rushing and Dr. Box. DISCHARGE MEDICATIONS: Continue all home medications. 1. Acetaminophen as needed. 2. Anastrozole 1 mg daily. 3. Calcium 600 plus vitamin D daily. 4. Colace 100 mg twice a day. 5. Flecainide 100 mg twice a day. 6. Fluoxetine 20 mg in the morning. 7. Arnuity Ellipta one inhalation twice a day. 8. Lasix 80 mg twice a day. 9. Lorazepam 1 mg daily. 10. Metolazone 5 mg twice a day. 11. Omeprazole 40 mg daily. 12. Zofran as needed. 13. Potassium chloride 40 mEq twice a day. 14. Pravastatin 40 mg daily. 15. Warfarin 5 mg daily. TIME SPENT: Arranging the details of this discharge took 35 minutes. Job ID: [id number]
[2019-01-21] MEDS ORDERED: Warfarin Sodium 3 MG TAB PO SCH (17:00)
== END 2019-01-20 14:55 | disposition home health service (06) | DRG 291 ==
LOC: ERS 07:20 → 2SE 09:34
PROVIDERS: ADMIT Internal Medicine; ATTEND Internal Medicine
DX: I13.0 Hypertensive heart and chronic kidney disease with heart failure and stage 1 through stage 4 chronic kidney disease, or unspecified chronic kidney disease (principal); I50.23 Acute on chronic systolic (congestive) heart failure; N17.9 Acute kidney failure, unspecified; E87.1 Hypo-osmolality and hyponatremia; N18.4 Chronic kidney disease, stage 4 (severe); Z68.41 Body mass index [BMI] 40.0-44.9, adult; E87.5 Hyperkalemia; I42.9 Cardiomyopathy, unspecified; E78.00 Pure hypercholesterolemia, unspecified; I48.0 Paroxysmal atrial fibrillation; I25.10 Atherosclerotic heart disease of native coronary artery without angina pectoris; K21.9 Gastro-esophageal reflux disease without esophagitis; D63.1 Anemia in chronic kidney disease; M19.90 Unspecified osteoarthritis, unspecified site; F32.9 Major depressive disorder, single episode, unspecified; I08.1 Rheumatic disorders of both mitral and tricuspid valves; E66.01 Morbid (severe) obesity due to excess calories; K59.00 Constipation, unspecified; D50.9 Iron deficiency anemia, unspecified; E88.09 Other disorders of plasma-protein metabolism, not elsewhere classified; I95.9 Hypotension, unspecified; Z85.3 Personal history of malignant neoplasm of breast; Z79.01 Long term (current) use of anticoagulants; Z95.0 Presence of cardiac pacemaker; Z88.0 Allergy status to penicillin; Z88.1 Allergy status to other antibiotic agents; Z88.8 Allergy status to other drugs, medicaments and biological substances; Z87.891 Personal history of nicotine dependence; Z79.899 Other long term (current) drug therapy
CPT/HCPCS: 36415; 76705; 80053; 83540; 83930; 84300; 84540; 85025; 85610; 85730; 93005; 93798; 96374; J2405